=== PATIENT | male | born 1940 | race Caucasian/White ===

== ENCOUNTER 2024-07-01 09:30 | Outpatient (RCR) | payer MEDICARE, BC, SELFPAY ==
[2024-05-17] VITALS (8 sets, daily range): BP systolic 110–131; BP diastolic 60–73; PULSE 58–68; RESP 16; TEMP 36.4–37.1; O2SAT 97–99
[2024-05-31] VITALS (14 sets, daily range): BP systolic 95–123; BP diastolic 45–75; PULSE 61–78; RESP 16; TEMP 36.7–36.9; O2SAT 95–99
--- OUTSIDE RECORDS SUMMARY | 2024-05-31 07:12 | XMS_ITS | Encounter Summary ---
Author Name [facility] [place] Organization [facility] [place] Address [address] [place] [address] Care Team Providers Care Blood Bank Specialist Name Role Phone DELMY LING Primary Care Provider Unava ilable Insurance Providers: All historical and current Section Date Range: From patient's date of to the date document was created. This section includes the names of all active insurance providers for the patient. Insurance Provider Type of Coverage Plan Name Start of Policy Coverage End of Policy Coverage Group Number Member ID Insurance Provider's Telephone Number Policy Vazquez's Name Patient's Relationship to Policy Vazquez [place] MED[place] SUPPLEMEN MELYSSA BASIC MEDIC ARE BLUE Jun 15, 2018 [id number] TUNG MONTENEGRO HN PATIENT [place] MED[place] SUPPLE[place] MELYSSA MEDIC ARE SUPPL EMENT Jun 15, 2018 [id number] TUNG MONTENEGRO HN [place]IENT [place] [facility] (WNR) MEDICARE ADVANTAGE [facility] (WNR) Jun 15, 2016 [id number] [phone] TUNG MONTENEGRO HN PATIENT [place] MED[place] SUPPLEMEN MELYSSA MEDIC ARE SUPPL EMENT Jun 15, 2018 [id number] TUNG MONTENEGRO HN PATIENT MEDICARE (WNR) MEDICARE (M) PART A Dec 13, 2004 PART A [id number] [phone] TUNG MONTENEGRO HN PATIENT MEDICARE (WNR) MEDICARE (M) PART B Dec 13, 2004 PART B [id number] [phone] TUNG MONTENEGRO PATIENT Selected Encounter This section includes the information on record at [place] for the Encounter. Date/Time Encounter Type Encounter Description Reason Pro vider Source Jun 25, 2023 12:00 AM Outpatient Encounter EVENT (HISTORICAL) IHE Encounter Template Text not used by [place] Plan of Treatment: Future Appointments (+ 6 months) and Future Tests (+/- 45 days) The Plan of Treatment section includes future care activities for the patient from all [place] treatmentfacilities. This section includes future appointments and future orders which are active, pending or scheduled. Future Appointments This section includes appointments that were scheduled to occur 6 months from the date of the Encounter, up to a maximum of 20 appointments. The data comes from all [place] treatment facilities. Appointment Date/Time Appointment Type Appointme nt Facility Name Oct 06, 2023 08:00 AM AMBULATORY - MEDICINE [facility] Immunizations: All administered on the encounter date This section contains immunizations associated to the Encounter. Immunization Series Date Issued Reaction Comments INFLUENZA VACCINE, QUADRIVALENT, ADJUVANTED Jun 25, 2023 Social History: Smoking Status (Most current) and Tobacco Use (All prior to encounter date) This section includes the most current, and the historical, smoking and tobacco- related health factors from the [place] facility where the Encounter took place. Current Smoking Status This section includes the most current smoking, or tobacco-related health factor, from the [place] facility where the Encounter took place. Date/Time Current Smoking Status Comment Shamar ity October 20, 2022 08:30 AM VA-TOBACCO FORMER USER [facility] Tobacco Use History This section includes a history of the smoking, or tobacco-related health factors, that were collected on or before the date of the Encounter. The data comes from the [place] facility where the Encounter took place. Date/Time Smoking Status/Tobacco Use Comment F acility October 20, 2022 08:30 AM VA-TOBACCO QUIT 15 YRS OR MORE [facility] October 14, 2021 08:30 AM VA-TOBACCO FORMER USER [facility] October 14, 2021 08:30 AM VA-TOBACCO QUIT 15 YRS OR MORE [facility] Aug 27, 2018 01:37 PM VA-TOBACCO FORMER USER [facility] Aug 27, 2018 01:37 PM VA-TOBACCO QUIT 15 YRS OR MORE [facility] Sep 24, 2017 11:21 AM FORMER TOBACCO USER 7Y OR [facility] October 27, 2016 08:24 AM FORMER TOBACCO USER 7Y OR [facility] October 29, 2015 08:10 AM FORMER TOBACCO USER 7Y OR [facility] October 13, 2014 08:05 AM FORMER TOBACCO USER 7Y OR [facility] November 02, 2013 08:12 AM FORMER TOBACCO USER 7Y OR [facility] Oct 01, 2006 08:54 AM FORMER TOBACCO USER 7Y OR [facility]
--- OUTSIDE RECORDS SUMMARY | 2024-05-31 07:12 | XMS_ITS | Encounter Summary ---
Author Name [facility] [place] [facility] [place] [facility] Address [address] [place] [id number] Care Team Providers Care Bar Steward Name Role Phone DELMY LING Primary Care [...] Name Patient's Relationship to Policy Vazquez [place] SU[place] BASIC MEDIC ARE BLUE Jun 15, 2018 [id number] TUNG MONTENEGRO HN PATIENT [place] SU[place] MEDIC ARE SUPPL EMENT Jun 15, 2018 [id number] [phone] TUNG MONTENEGRO HN [place] [facility] (WNR) MEDICARE ADVANTAGE [facility] (WNR) Jun 15, 2016 [id number] [phone] TUNG MONTENEGRO HN PATIENT BCBS [place] MEDICARE SUPPLEMEN MELYSSA MEDIC ARE SUPPL EMENT Jun 15, 2018 [id number] TUNG MONTENEGRO HN PATIENT MEDICARE (WNR) MEDICARE (M) PART A Dec 13, 2004 PART A [id number] [phone] TUNG MONTENEGRO HN PATIENT MEDICARE (WNR) MEDICARE (M) PART B Dec 13, 2004 PART B [id number] [phone] TUNG MONTENEGRO PATIENT Selected Encounter This section includes the information on record at [place] for the Encounter. Date/Time Encounter Type Encounter Description Reason Provider Source Oct 06, 2023 08:00 AM Outpatient Encounter PRIMARY CARE/MEDICINE ICD-10-CM Z00.00 Encntr for general adult medical exam w/o abnormal findings KORINA DELUNA [facility] Encounter Template Text not used by [place] Assessments - Encounter Diagnoses This section includes the primary and secondary diagnoses documented for the Encounter. Date/Time Primary/Secondary Diagnosis Diagnosis Name Provider Source October 19, 2023 10:09 AM PRIMARY Encntr for general adult medical exam w/o abnormal findings KORINA DELUNA [facility] Vital Signs: All taken on the encounter date This section contains inpatient and outpatient Vital Signs collected on the date of the Encounter. Date/Time Temperature Pulse Blood Pressure Respiratory Rate SP02 Pain Height Weight Body Mass Index Source Oct 06, 2023 08:01 AM 73 123/76 [facility] Oct 06, 2023 07:53 AM 97.9 75 154/82 17 95 4 70 204.5 29 [facility] Social History: Smoking Status (Most current) and Tobacco Use (All prior to encounter date) This section includes the most current, and the historical, smoking and tobacco- related health factors from the [place] facility where the Encounter took place. Current Smoking Status This section includes the most current smoking, or tobacco-related health factor, from the [place] facility where the Encounter took place. Date/Time Current Smoking Status Comment Shamar scruggs Oct 06, 2023 08:00 AM VA-TOBACCO FORMER USER [facility] Tobacco Use History This section includes a history of the smoking, or tobacco-related health factors, that were collected on or before the date of the Encounter. The data comes from the [place] facility where the Encounter took place. Date/Time Smoking Status/Tobacco Use Comment F acelsi Oct 06, 2023 08:00 AM VA-TOBACCO QUIT 15 YRS OR MORE [facility] October 20, 2022 08:30 AM VA-TOBACCO FORMER USER [facility] October 20, 2022 08:30 AM VA-TOBACCO QUIT 15 YRS OR MORE [facility] October 14, 2021 08:30 AM VA-TOBACCO FORMER USER [facility] October 14, 2021 08:30 AM VA-TOBACCO QUIT 15 YRS OR MORE [facility] Aug 27, 2018 01:37 PM VA-TOBACCO FORMER USER [facility] Aug 27, 2018 01:37 PM VA-TOBACCO QUIT 15 YRS OR MORE [facility] Sep 24, 2017 11:21 AM FORMER TOBACCO USER 7Y OR GREATE R [facility] October 27, 2016 08:24 AM FORMER TOBACCO USER 7Y OR [facility] October 29, 2015 08:10 AM FORMER TOBACCO USER 7Y OR [facility] October 13, 2014 08:05 AM FORMER TOBACCO USER 7Y OR [facility] November 02, 2013 08:12 AM FORMER TOBACCO USER 7Y OR [facility] Oct 01, 2006 08:54 AM FORMER TOBACCO USER 7Y OR [facility] Encounter Notes: All associated encounter notes This section contains the clinical notes associated to the Encounter. Date/Time Encounter Note(s) Provider Source Oct 06, 2023 08:25 AM INTERNAL MEDICINE NOTE: LOCAL TITLE: MEDICINE CLINIC NOTE STANDARD TITLE: INTERNAL MEDICINE NOTE DATE OF NOTE: OCT 06, 2023@08:25 ENTRY DATE: OCT 06, 2023@08:25:06 AUTHOR: EMILIA DELUNA COSIGNER: URGENCY: STATUS: COMPLETED Nurse's notes reviewed from today. STACI MONTENEGRO is a 82 year old MALE with a past medical history significant for GERD, HLD, HTN, prostate CA, CKD3, melanoma and BCC, Irwin's, and chronic rhinitis who presents to the [facility] (primary DMIM-[id number] available) for his annual. He is comanaged, getting all of his care through [facility]. Comes here yearly to maintain benefits. No concerns today. Active problems - Computerized Problem List is the source for the followin. Gastroesophageal reflux disease (SNOMED CT 389079303) 2. Esophageal stricture 3. ELEV B/P W/OUT HTN 4. Cholecystectomy - 01/01/07 dr. Frye - ERCP 01/02/07 5. History of hematuria - s/p cytoscopy 02/03/06 nl exam 6. Impaired fasting glucose (SNOMED CT 857563128) 7. Other specified forms of hearing loss - buzzing and clicking noise 8. 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 Mixed hyperlipidemia * 10. SURGERY Hx - cholecystectomy - esophageal dilation - L cataract sx 10/2012 outside - R cataract sx 11. FAMILY Hx - m melanoma 12. Basal cell carcinoma of forehead - Dr. Wright 13. CO-MANAGE - ACUTE care Dr. [place] - PCP Dr. Parks [phone] - Derm Dr. Wright - Uro Dr. Rodriguez [phone] f 14. SCREEN - 2011 per pt done outside polyps x2 rec repeat 3-5yr per pt - AAA discuss 11/06/11 pt declined understanding risk - DEXA n/a 15. 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 Elevated Prostate Specific Antigen (PSA) 17. Renal Cyst - right hemorrhagic followed [place] Dr. Foster 02/22 18. Impotence of organic origin 19. Allergy to bee venom (SNOMED CT 478374704) 20. Cataract - s/p L eye cataract sx 10/2012 [facility] 21. 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 Wright 22. Allergic rhinitis 23. Prostate cancer - outside dx Joseph grade 3+4 tx with hormone & radiation 24. Chronic kidney disease stage 3 25. Hypertension 26. Exposure to potentially hazardous substance (SCT [id number]) - Entered through [facility]/VISN23 [facility] Document[employer] Allergies: PENICILLIN (Feb 07, 2005) PROCAINE (Feb 10, 2005) BEE STINGS (October 31, 2010) Active and Recently Outpatient Medications (including Supplies): Active Outpatient Medications Status 1) AZELASTINE 137MCG/SPRAY 200D NASAL INHL SPRAY 1 PUFF ACTIVE IN EACH NOSTRIL EVERY DAY FOR NASAL SYMPTOMS 2) EPINEPHRINE (EQV-EPI-PEN) 0.3MG/0.3ML INJECT 1 PEN ACTIVE DIRECTED NEEDED FOR TROUBLE BREATHING AFTER BEE STINGS. 3) FAMOTIDINE 20MG TAB TAKE ONE TABLET BY MOUTH TWICE A ACTIVE DAY FOR HEARTBURN 4) FINASTERIDE 5MG TAB TAKE ONE TABLET BY MOUTH EVERY ACTIVE DAY FOR PROSTATE 5) FLUTICASONE PROP 50MCG 120D NASAL INHL SPRAY 2 SPRAYS ACTIVE IN EACH NOSTRIL EVERY DAY FOR NASAL SYMPTOMS 6) IPRATROPIUM BR 0.06% NASAL SPRAY SPRAY 2 SPRAYS IN ACTIVE EACH NOSTRIL FOUR TIMES A DAY FOR SNEEZING, POSTNASAL DRIP, OR RHINORRHEA. 7) LORATADINE 10MG TAB TAKE ONE TABLET BY MOUTH EVERY ACTIVE DAY FOR ALLERGIES 8) LOSARTAN 25MG TAB TAKE ONE TABLET BY MOUTH EVERY DAY ACTIVE FOR BLOOD PRESSURE Active Non-VA Medications Status 1) Non-VA ASCORBIC ACID 500MG TAB 500 MG MOUTH EVERY DAY ACTIVE 2) Non-VA AZELASTINE 137MCG/SPRAY 200D NASAL INHL 1 PUFF ACTIVE EACH NOSTRIL EVERY DAY 3) Non-VA CHOLECALCIF 25MCG (D3-1,000UNIT) TAB 2000UNIT ACTIVE MOUTH EVERY DAY 4) Non-VA FAMOTIDINE 20MG TAB 20MG MOUTH TWICE A DAY ACTIVE 5) Non-VA FINASTERIDE 5MG TAB 5MG MOUTH EVERY DAY ACTIVE 6) Non-VA FISH OIL 1000MG (500MG DHA/EPA) CAP 1GM MOUTH ACTIVE EVERY DAY 7) Non-VA FLUTICASONE PROP 50MCG 120D NASAL INHL 1 SPRAY ACTIVE EACH NOSTRIL EVERY DAY 8) Non-VA FLUTICASONE SOLN,NASAL EACH NOSTRIL ACTIVE 9) Non-VA IPRATROPIUM BR 0.06% NASAL SPRAY 1 SPRAY ACTIVE INHALATION EVERY DAY 10) Non-VA LORATADINE 10MG TAB 10MG MOUTH EVERY MORNING ACTIVE 11) Non-VA LOSARTAN 50MG TAB 25MG MOUTH EVERY DAY ACTIVE 19 Total Medications MEDICATION RECONCILIATION Outpatient At this visit I have reviewed the medication list, and discussed relevant medications with the patient/surrogate. An updated patient medication list was given to the participant(s). (x) No Change ( ) Change/New: I have noted this on the patient's copy of the medication list. Education on NEW Medication: I have reviewed the medication list for possible drug:drug interactions or contraindications prior to ordering NEW medications during this visit. ( )Patient instructed. I noted new medication on patient's copy of the medication list. Patient sent to Pharmacist for education on new medication. ( )Patient ( )Family Member ( )Caregiver indicated readiness to learn and has been instructed on action, dose, frequency and side effects of the new medication and I noted new medication on participant's copy of the medication list. ( ) Verbalizes understanding of instructions. ( ) Needs additional reinforcement of instructions(sent to Pharmacist). ( )Patient unable to participate in learning/instruction. Social History: quit smoking in 1970, smoked 1/2ppd for 14 years EXAM: VS: Temp: 97.9 F [36.6 C] (10/06/2023 07:53) BP: 123/76 (10/06/2023 08:01) Pulse:73 (10/06/2023 08:01) Resp: 17 (10/06/2023 07:53) Pain: 4 (10/06/2023 07:53) Weight: WEIGHTS IN LAST 6 MONTHS: 204.5 (OCT 06, 2023@07:53:58) General Appearance: Head: normocephalic, atraumatic Eyes: Sclera without icterus, PERRLA Cardiac: RRR, No murmurs, gallops, rubs Chest/Lungs: Bilaterally clear with no respiratory distress Abdominal: Normal - Normal bowel sounds, Non-tender, No hepatosplenomegaly, No masses Extremities: No edema Neurological: Alert and oriented x3 Data/Labs: LAB RESULTS LAST 48 HRS - NONE FOUND ( )Patient was informed of available lab, imaging, and other study results associated with today's visit. Assessment and Plan: #. HM: -Screen: -colon cancer: last cscope was in 2015, stopped screening due to age -AAA: negative US 2012 -ldCT chest: n/a -PSA: <0.01 (08/2023 at ) -Immunizations: -Shingles: x2 -Tdap: 2017 -Pna: -COVID-19: x5 #. Comanaged care patient with history of HTN, HLD, gerd, irwin's, CKD3, skin cancer and rhinitis. All managed by [facility] providers. Currently decided to get all his meds through [facility] because it is cheaper. Overall stable. Planning on BRI on the right some time this year. RTC in 1 year (x) Patient/Caregiver indicates readiness to learn, verbalizes understanding, agreement and satisfaction with the treatment plan. Patient/Caregiver doesn't have any further questions today. /benigno/ Emilia Deluna PA-C Physician Lathe Scalper Operator Signed: 10/06/2023 08:30 EMILIA DELUNA [facility] Oct 06, 2023 07:55 AM INTERNAL MEDICINE OUTPATIENT NOTE: LOCAL TITLE: MEDICINE CLINIC NURSING NOTE STANDARD TITLE: INTERNAL MEDICINE OUTPATIENT NOTE DATE OF NOTE: OCT 06, 2023@07:55 ENTRY DATE: OCT 06, 2023@07:56:02 AUTHOR: MELA PORRAS COSIGNER: URGENCY: STATUS: COMPLETED TYPE OF VISIT: Appointment Check In Type of appointment: In-person appointment REASON FOR VISIT: ANNUAL ALLERGIES: PENICILLIN (Feb 07, 2005) PROCAINE (Feb 10, 2005) BEE STINGS (October 31, 2010) VITAL SIGNS: Blood Pressure: 154/82 (10/06/2023 07:53) Pulse: 75 (10/06/2023 07:53) Respiration: 17 (10/06/2023 07:53) Temperature: 97.9 F [36.6 C] (10/06/2023 07:53) Weight: 204.5 lb [92.76 kg] (10/06/2023 07:53) Height: 70 in [177.8 cm] (10/06/2023 07:53) BMI: 29.4 O2 Sat: 95% (10/06/2023 07:53) Pain: 4 (10/06/2023 07:53) PAIN SCREEN: Patient is not having significant pain that they wish to discuss with their provider today. MEDICATION Active Outpatient Medications (including Supplies): AZELASTINE 137MCG/SPRAY 200D NASAL INHL SPRAY 1 PUFF IN ACTIVE EACH NOSTRIL EVERY DAY FOR NASAL SYMPTOMS EPINEPHRINE (EQV-EPI-PEN) 0.3MG/0.3ML INJECT 1 PEN ACTIVE DIRECTED NEEDED FOR TROUBLE BREATHING AFTER BEE STINGS. FAMOTIDINE 20MG TAB TAKE ONE TABLET BY MOUTH TWICE A DAY ACTIVE FOR HEARTBURN FINASTERIDE 5MG TAB TAKE ONE TABLET BY MOUTH EVERY DAY FOR ACTIVE PROSTATE FLUTICASONE PROP 50MCG 120D NASAL INHL SPRAY 2 SPRAYS IN ACTIVE EACH NOSTRIL EVERY DAY FOR NASAL SYMPTOMS IPRATROPIUM BR 0.06% NASAL SPRAY SPRAY 2 SPRAYS IN EACH ACTIVE NOSTRIL FOUR TIMES A DAY FOR SNEEZING, POSTNASAL DRIP, OR RHINORRHEA. LORATADINE 10MG TAB TAKE ONE TABLET BY MOUTH EVERY DAY FOR ACTIVE ALLERGIES LOSARTAN 25MG TAB TAKE ONE TABLET BY MOUTH EVERY DAY FOR ACTIVE BLOOD PRESSURE Non-VA ASCORBIC ACID 500MG TAB 500 MG MOUTH EVERY DAY ACTIVE Non-VA AZELASTINE 137MCG/SPRAY 200D NASAL INHL 1 PUFF EACH ACTIVE NOSTRIL EVERY DAY Non-VA CHOLECALCIF 25MCG (D3-1,000UNIT) TAB 2000UNIT MOUTH ACTIVE EVERY DAY Non-VA FAMOTIDINE 20MG TAB 20MG MOUTH TWICE A DAY ACTIVE Non-VA FINASTERIDE 5MG TAB 5MG MOUTH EVERY DAY ACTIVE Non-VA FISH OIL 1000MG (500MG DHA/EPA) CAP 1GM MOUTH EVERY ACTIVE DAY Non-VA FLUTICASONE PROP 50MCG 120D NASAL INHL 1 SPRAY EACH ACTIVE NOSTRIL EVERY DAY Non-VA FLUTICASONE SOLN,NASAL EACH NOSTRIL ACTIVE Non-VA IPRATROPIUM BR 0.06% NASAL SPRAY 1 SPRAY INHALATION ACTIVE EVERY DAY Non-VA LORATADINE 10MG TAB 10MG MOUTH EVERY MORNING ACTIVE Non-VA LOSARTAN 50MG TAB 25MG MOUTH EVERY DAY ACTIVE Over the Counter/Herbal Medications: The patient denies taking any outside medications or herbals. COVID-19 Immunization: Refused Pfizer Monovalent COVID-19 vaccine Immunization: COVID-19 (PFIZER), MRNA, LNP-S, PF, MAYA-SUCROSE, 30 MCG/0.3 ML (AGES 12+ YEARS) Refusal Reason: PATIENT DECISION Patient refuses all immunization(s) in the COVID-19 group Date Documented: 10/06/23 07:57 Suicide Screen: C-SSRS Screening [place] Suicide Severity Rating Scale (C-SSRS) screener 1. Over the past month, have you wished you were or wished you could go to sleep and not wake up? No 2. Over the past month, have you had any actual thoughts of killing yourself? No 3. Over the past month, have you been thinking about how you might do this? Response not required due to responses to other questions. 4. Over the past month, have you had these thoughts and had some intention of acting on them? Response not required due to responses to other questions. 5. Over the past month, have you started to work out or worked out the details of how to kill yourself? Response not required due to responses to other questions. 6. If yes, at any time in the past month did you intend to carry out this plan? Response not required due to responses to other questions. 7. In your lifetime, have you ever done anything, started to do anything, or prepared to do anything to end your life (for example, collected pills, obtained a gun, gave away valuables, went to the roof but didn't jump)? No 8. If YES, was this within the past 3 months? Response not required due to responses to other questions. Depression Screening: Perform PHQ-2 A PHQ-2 screen was performed. The score was 0 which is a negative screen for depression. Over the past two weeks, how often have you been bothered by the following problems? 1. Little interest or pleasure in doing things Not at all 2. Feeling down, depressed, or hopeless Not at all Alcohol Use Screen (AUDIT-C): Alcohol Screen: SCREEN FOR ALCOHOL (AUDIT-C) An alcohol screening test (AUDIT-C) was negative (score=0). 1. How often did you have a drink containing alcohol in the past year? Consider a drink to be a 12 ounce can or bottle of regular beer, 8 ounces of malt liquor, a 5 ounce glass of table wine, or a 1.5 ounce shot of liquor (like scotch, gin, or vodka). Never 2. How many drinks containing alcohol did you have on a typical day when you were drinking in the past year? Response not required due to responses to other questions. 3. How often did you have six or more drinks on one occasion in the past year? Response not required due to responses to other questions. Nursing Annual Screening: Fall History Screen During the past 12 months, have you had any falls? Patient does not report any falls in the past 12 months. MEDICATIONS: Patient is on one of the following medication classes: Antihypertensives, Antidepressants, Antipsychotics, Diuretics, or Controlled substance medication used for pain. Script Talk Screen Are you able to read your prescription bottles with your glasses, magnifiers or other aids? Yes or patient not taking any prescriptions. Skin Screen Patient reports any current pressure ulcers, a history of pressure ulcers, or a wound from a medical records administrator or Patient is bed-confined or a wheelchair-user or Patient requires assistance to transfer/change position No, Skin Screen is Negative Home Abuse/Violence Screen Is your home free of abuse and violence? Yes MOVE! Program Screen Body Mass Index (BMI)= 29.4 [place]: No data available [place] Hgb A1C: No data available [place] Hgb A1C: No data available Point of Care Hgb A1C: POC HGB A1C____ Outpatient Nutrition Screen Body Mass Index (BMI)= 29.4 [place]: No data available [place] Hgb A1C: No data available [place] Hgb A1C: No data available Point of Care Hgb A1C: POC HGB A1C____ Is patient's BMI less than 18.5? No Does patient have swallowing, coughing, or chewing problems affecting oral intake? Yes Has patient experienced unplanned weight loss or gain greater than 10 pounds over the last 2 months? No Is patient's Hgb A1C (Glycosylated Hemoglobin) greater than 9.5? Information not available Is patient receiving Total Parenteral Nutrition (TPN) or Tube Feedings? No Patient Health Education Screen BARRIERS/SPECIAL NEEDS: Physical limitations Hearing limitations Visual limitations PREFERRED STYLE OF LEARNING: Reading Client Assistive Service (KEVIN) Screen Does the patient require assistance with outpatient visit? No Tobacco Use Screening: The patient is a former tobacco user. The patient quit fifteen or more years ago. Homelessness/Food Insecurity Screen: In the past 2 months, have you been living in stable housing that you own, rent, or stay in as part of a household? Yes - Living in stable housing. Are you worried or concerned that in the next 2 months you may NOT have stable housing that you own, rent, or stay in as part of a household? No - Not worried about housing near future [facility] reports the following: Within the past 12 months, you worried whether your food would run out before you got money to buy more. Never true Within the past 12 months, the food you bought just didn't last and you didn't have money to get more. Never true Food Assistance Programs [facility] Food Assistance Programs [facility] /benigno/ MELA PORRAS LPN LPN Signed: 10/06/2023 08:00 MELA PORRAS [facility]
--- OUTSIDE RECORDS SUMMARY | 2024-05-31 07:12 | XMS_ITS | Continuity of Care Document ---
Author Name [facility] Organization [facility] Care Team Providers Care Fleet Service Manager Name Role Phone [facility] Unavailable Unavailable Problems Combined list of problems from Department of Defense and Veterans Affairs facilities. It does not include entries that were removed or entered in error. Problem Status Onset Date Problem Type Date of Resolution Comments Source Exposure to potentially hazardous substance ([facility] [id number]) Active 024 Condition Aug 19, 2023 Entered By: SABAS HUIZAR [facility]: [facility] Documentation Initiative [facility] Allergic rhinitis Active Condition [facility] Allergy to bee venom (SNOMED CT 886918668) Active Condition [facility] Basal cell carcinoma of forehead Active Condition October 31, 2009 Entered By: CARYN AUGUSTINE Comment: Dr. Wright [facility] Cataract Active Condition November 02 14 Entered By: CARYN AUGUSTINE Comment: s/p L eye cataract sx 10/2012 [place] [facility] Cholecystectomy Active Condition Oct 01, 2006 Entered By: CARYN AUGUSTINE Comment: 01/01/07 dr. Rankin 2006 Entered By: CARYN AUGUSTINE Comment: ERCP 01/02/07 [facility] Chronic kidney disease stage 3 Active Condition [facility] Active Condition October 31 10 Entered By: CARYN AUGUSTINE Comment: ACUTE care Dr. Sneed 2014 Entered By: CARYN AUGUSTINE Comment: PCP Dr. Parks [phone] [id number] 2014 Entered By: CARYN AUGUSTINE Comment: Derm Dr. Franco 2015 Entered By: CARYN AUGUSTINE Comment: Uro Dr. Rodriguez [phone] f [facility] ELEV B/P W/OUT HTN Active Condition [facility] Elevated Prostate Specific Antigen (PSA) (ICD-9-CM 790.93) Active Condition [facility] Esophageal stricture (ICD-9-CM 530.3) Active Condition [facility] Hx Active Condition October 31 10 Entered By: CARYN AUGUSTINE Comment: m melanoma [facility] Gastroesophageal reflux disease (SNOMED CT 377645400) Active Condition [facility] History of hematuria Active Condition Oct 01, 2006 Entered By: CARYN AUGUSTINE Comment: s/p cytoscopy 02/03/06 nl exam [facility] Hypertension Active Condition 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 Wright [facility] Prostate cancer Active Condition Jan 14, 2016 Entered By: CARYN AUGUSTINE Comment: outside dx Joseph grade 3+4 tx with hormone & radiation [facility] Renal Cyst Active Condition May 15 010 Entered By: CARYN AUGUSTINE Comment: right hemorrhagic followed non [place] urology Dr. Foster 02/22 [facility] SCREEN Active Condition October 31 10 Entered By: CARYN AUGUSTINE Comment: 2012 per pt done outside polyps x2 rec repeat 3-5yr per ptMay 2011 Entered By: CARYN AUGUSTINE Comment: AAA discuss 11/06/11 pt declined understanding riskMay 2011 Entered By: CARYN AUGUSTINE Comment: DEXA n/a [facility] SOCIAL Hx Active Condition October 31 10 Entered By: CARYN AUGUSTINE Comment: smoke deniesMay 2009 Entered By: CARYN AUGUSTINE Comment: etoh rare socialMay 2009 Entered By: CARYN AUGUSTINE Comment: drug deniesMay 2009 Entered By: CARYN AUGUSTINE Comment: marine, [age], 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 AUGUSTINE Comment: retired, 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 [facility] SURGERY Hx Active Condition October 31 010 Entered By: CARYN AUGUSTINE Comment: cholecystectomyMay 2009 Entered By: CARYN AUGUSTINE Comment: esophageal dilationMay 2013 Entered By: CARYN AUGUSTINE Comment: L cataract sx 10/2012 outsideMay 2015 Entered By: CARYN AUGUSTINE Comment: R cataract sx [facility] Diagnosis: ICD-10-CM Z00.00 Encntr for general adult medical exam w/o abnormal findings Active Diagnosis [facility] Medications Combined list of outpatient medications from Department of Defense and Veterans Affairs facilities.Medications provided include 1) outpatient medications from the last 15 months, and 2) patient-reported medications. Medication Details Route Status Patient Instructions Prescription Expires Prescription Number Last Dispense Date Ordering Provider Order Date Order Qty Source ASCORBIC ACID 500MG TAB TAKE ONE TABLET BY MOUTH EVERY DAY [facility]AL [facility]IVE [facility] 2007 [facility] AZELASTINE HCL 137MCG/SPRA Y INHL,NASAL, 30ML SPRAY 1 PUFF IN EACH NOSTRIL EVERY DAY NASAL ACTIVE TRAUT,SANDRITA HARD L 2018 [facility] CHOLECALCIF ANDREI 25MCG (1,000UNIT) TAB TAKE TWO TABLETS BY MOUTH EVERY DAY ORAL ACTIVE [facility] 2015 [facility] FAMOTIDINE 20MG TAB TAKE ONE TABLET BY MOUTH TWICE A DAY ORAL ACTIVE TRAUT,SANDRITA HARD L 2021 [facility] FINASTERIDE 5MG TAB TAKE ONE TABLET BY MOUTH EVERY DAY ORAL ACTIVE TRAUT,SANDRITA HARD L 2019 [facility] FISH OIL 1000MG (500MG DHA/EPA) CAP,ORAL TAKE 1 CAPSULE BY MOUTH EVERY DAY ORAL ACTIVE [facility] 2009 [facility] FLUTICASONE PROPIONATE 50MCG/SPRAY SOLN,NASAL, 16GM SPRAY 1 SPRAY IN EACH NOSTRIL EVERY DAY NASAL ACTIVE TRAUT,SANDRITA HARD L 2018 [facility] FLUTICASONE SOLN,NASAL SPRAY IN EACH NOSTRIL NASAL ACTIVE TRAUT,SANDRITA HARD L 2018 [facility] IPRATROPIUM BR 0.06% SOLN,SPRAY, NASAL SPRAY 1 SPRAY IN INHALATI ON EVERY DAY RESPIR ATORY (INHAL ATION) ACTIVE SANDRITA MCGUIRE 2018 [facility] LORATADINE 10MG TAB TAKE ONE TABLET BY MOUTH EVERY MORNING ORAL ACTIVE [facility] C 2017 [facility] LOSARTAN 50MG TAB TAKE ONE-HALF TABLET BY MOUTH EVERY DAY [facility]AL ACTIVE [facility] 2017 [facility] Allergies, Adverse Reactions, Alerts Combined list of allergies from [facility] and [facility] facilities. It does not include entries that were removed or entered in error. Substance Category Reaction Severity Reaction type Status Date Reported Comments Source BEE STINGS Propensity to adverse reaction (finding) Urticaria active 1 [facility] PENICILLIN Propensity to adverse reactions to drug (finding) Eruption active 5 [facility] PROCAINE Propensity to adverse reactions to drug (finding) SWELLING (NON-SPECI FIC) active 5 [facility] Immunizations Combined list of available immunizations from the Department of [facility] and [facility] facilities. Immunization Series Date Given Administered By Site Reaction Lot Number CVX Code Drug Manufacturing Engineering Manager Status Comments Source INFLUENZA VACCINE, QUADRIVALENT, ADJUVANTED 2023 205 complet ed [facility] COVID-19 (PFIZER), MRNA, LNP-S, BIVALENT, PF, 30 MCG/0.3 ML DOSE 2022 300 complet ed [facility] INFLUENZA, HIGH-DOSE, QUADRIVALENT 2021 197 complet ed [facility] INFLUENZA, UNSPECIFIED FORMULATION 2021 88 complet ed [facility] COVID-19 (PFIZER), MRNA, LNP-S, PF, 30 MCG/0.3 ML DOSE, MAYA-SUCROSE (AGES 12+ YEARS) 2021 217 complet ed [facility] INFLUENZA, HIGH-DOSE, QUADRIVALENT 2020 197 complet ed [facility] COVID-19 (PFIZER), MRNA, LNP-S, PF, 30 MCG/0.3 ML DOSE 2020 208 complet ed [facility] INFLUENZA, UNSPECIFIED FORMULATION 2020 88 complet ed [facility] COVID-19 (PFIZER), MRNA, LNP-S, PF, 30 MCG/0.3 ML DOSE 2 2020 208 complet ed [facility] COVID-19 (PFIZER), MRNA, LNP-S, PF, 30 MCG/0.3 ML DOSE 1 2020 208 complet ed [facility] INFLUENZA, HIGH-DOSE, QUADRIVALENT 2019 197 complet ed [facility] INFLUENZA, HIGH DOSE SEASONAL 2018 135 complet ed [facility] ZOSTER RECOMBINANT 2 2018 187 complet ed [facility] ZOSTER RECOMBINANT 1 2018 187 complet ed [facility] INFLUENZA, HIGH DOSE SEASONAL 2017 135 complet ed [facility] INFLUENZA, HIGH DOSE SEASONAL 2017 135 complet ed [facility] INFLUENZA, HIGH DOSE SEASONAL 2016 135 complet ed [facility] INFLUENZA, HIGH DOSE SEASONAL 2016 135 complet ed [facility] TDAP 2016 115 complet ed glaxosmit hkline; [id number]; 9 [facility] INFLUENZA, HIGH DOSE SEASONAL 2015 135 complet ed [facility] INFLUENZA, SEASONAL, INJECTABLE [address] [facility] PNEUMOCOCCAL CONJUGATE PCV 13 2015 133 complet ed [facility] TDAP 2015 115 complet ed [facility] PNEUMOCOCCAL CONJUGATE PCV 13 2015 133 complet ed [facility] INFLUENZA, SEASONAL, INJECTABLE 2014 141 complet ed [facility] INFLUENZA, INJECTABLE, QUADRIVALENT, PRESERVATIVE FREE 2014 150 complet ed [facility] INFLUENZA, HIGH DOSE SEASONAL 2013 135 complet ed [facility] INFLUENZA, INJECTABLE, QUADRIVALENT, PRESERVATIVE FREE 2012 150 complet ed [facility] INFLUENZA, UNSPECIFIED FORMULATION 2012 88 complet ed [facility] ZOSTER LIVE 2011 121 complet ed [employer] and [employer]. Lot# [id number] Exp.Date- - 3 [facility] PNEUMOCOCCAL POLYSACCHARID E PPV23 2005 33 complet ed [facility] TD (ADULT), 5 LF TETANUS TOXOID, PRESERVATIVE FREE, ADSORBED 2005 113 complet ed [facility] PNEUMOCOCCAL, UNSPECIFIED FORMULATION 2005 109 complet ed [facility] TD(ADULT) UNSPECIFIED FORMULATION 2004 139 complet ed within the last 10 years [facility] Vital Signs Combined list of inpatient and outpatient Vital Signs from Department of [facility] and [facility], ranging from 12 months to all on record, depending upon the facility. Vital Sign Value Date Comments Source SYSTOLIC BLOOD PRESSURE 154 10/06/2023 07:53:58 [facility] DIASTOLIC BLOOD PRESSURE 82 10/06/2023 07:53:58 [facility] PULSE OXIMETRY 95 10/06/2023 07:53:58 [facility] WEIGHT 204.5 10/06/2023 07:53:58 [facility] BMI 29kg/m2 10/06/2023 07:53:58 [facility] PAIN 4 10/06/2023 07:53:58 [facility] HEIGHT 70 10/06/2023 07:53:58 [facility] TEMPERATURE 97.9 10/06/2023 07:53:58 [facility] PULSE 75 10/06/2023 07:53:58 [facility] RESPIRATION 17 10/06/2023 07:53:58 [facility] Encounters Combined list of: 1) Encounters from Department of [facility] facilities going back up to thelast 18 months. 2) Encounters from the Department of [facility] facilities going back up to 280 months. Location Location Details Encounter Type Encounter Number Reason For Visit Attending Provider ADM Date DC Date Status Disposition Source [facility] Outpatient Encounter [id number] 06/25 [facility] Outpatient Encounter [id number] Diagnos is: ICD-10- CM Z00.00 Encntr for general adult medical exam w/o abnorma l finding s
José Miguel DILL 10/05 [facility] Social History Combined list of available smoking, tobacco, and other social history from Department of Defense and Veterans Affairs facilities. Social History Type Response Date Comment Sour e Tobacco smoking status NHIS VA-TOBACCO QUIT 15 YRS OR MORE 10/06/2023 [facility] History of tobacco use VA-TOBACCO FORMER USER 10/06/2023 [facility] History of tobacco use VA-TOBACCO QUIT 1 5 YRS OR MORE 10/20/2022 [facility] History of tobacco use VA-TOBACCO FORMER USER 10/14/2021 [facility] History of tobacco use VA-TOBACCO QUIT 1 5 YRS OR MORE 08/27/2018 [facility] History of tobacco use FORMER TOBACCO US ER 7Y OR GREATER 09/24/2017 [facility] History of tobacco use FORMER TOBACCO US ER 7Y OR GREATER 10/27/2016 [facility] History of tobacco use FORMER TOBACCO US ER 7Y OR GREATER 10/29/2015 [facility] History of tobacco use FORMER TOBACCO US ER 7Y OR GREATER 10/13/2014 [facility] History of tobacco use FORMER TOBACCO US ER 7Y OR GREATER 11/02/2013 [facility] History of tobacco use FORMER TOBACCO US ER 7Y OR GREATER 10/01/2006 [facility]
--- NOTE | 2024-05-31 08:44 | ONC.NURNOTE ---
Called [facility] to speak with Dr. Pandey regarding patients ankle swelling and order for 2 units of blood. Gave report to Gina. She is going to talk with a provider and get back to us.
--- NOTE | 2024-05-31 08:59 | ONC.NURNOTE ---
[facility] would like patient to have 20mg IV lasix in between units. This order is being faxed to us.
[2024-05-31] MEDS: 0.9 % SODIUM CHLORIDE 500 ML 250 ML IV (09:08)
[2024-05-31] MEDS: SODIUM CHLORIDE 0.9 % (FLUSH) 10 ML SYRINGE IVF (09:09)
[2024-05-31] MEDS: FUROSEMIDE 10 MG/ML inj 20 MG IV (11:29)
--- NOTE | 2024-05-31 15:02 | ONC.NURNOTE ---
Patient tolerated 2units of RBCs. Received 20mg IV Lasix in between units. Patient stated he felt better after getting blood. Patient was discharged with and [id number].
[2024-06-17] VITALS (11 sets, daily range): BP systolic 100–141; BP diastolic 52–73; PULSE 70–85; RESP 16–18; TEMP 36.1–37.2; O2SAT 95–100
--- OUTSIDE RECORDS SUMMARY | 2024-06-17 07:25 | XMS_ITS | Continuity of Care Document ---
Author Name NwDIANAN User [email or web address] Address Unknown Organization Unknown Address Unknown Procedures FILTER APPLIED:Only known Procedures with Onset Date within the last 5 years Procedure Date Procedure Provider Additional Inform ation Status ADMISSION MED REC MARKER FOR REPORTING AND BPA'S (98585) Completed ROUTINE UA WITH MICROSCOPIC ([id number]) Completed [facility] ENDOSCOPY DIAG W OR W/O BRUSH/WASH (75641) Completed Encounters FILTER APPLIED:Only known Encounters with Admission Date within the last 5 years Encounter Location Admission Discharge Billing Code Charter Representative Nguyen cook Outpatient [facility] Outpatient [facility] Outpatient [facility] Outpatient [facility] Out[facility] Inpatient [facility] Outpatient [facility] Outpatient [facility] Outpatient [facility] Outpatient [facility] Outpatient [facility] Out[facility]
--- OUTSIDE RECORDS SUMMARY | 2024-06-17 07:25 | XMS_ITS | Continuity of Care Document ---
Author Name [facility] Organization [facility] Care Team Providers Care Integrated Program Teacher Name Role Phone [facility] Unavailable Unavailable Problems Combined list of problems from Department of Defense and Veterans Affairs facilities. It does not include entries that were removed or entered in error. Problem Status Onset Date Problem Type Date of Resolution Comments Source Exposure to potentially hazardous substance ([facility] 509706120020344) Active 024 Condition Aug 19, 2023 Entered By: SABAS HUIZAR Comment: [facility] Documentation Initiative [facility] Allergic rhinitis Active Condition [facility] Allergy to bee venom (SNOMED CT 454840445) Active Condition [facility] Basal cell carcinoma of forehead Active Condition October 31, 2009 Entered By: CARYN AUGUSTINE Comment: Dr. Wright [facility] Cataract Active Condition November 02 14 Entered By: CARYN AUGUSTINE Comment: s/p L eye cataract sx 10/2012 [place] eye [facility] Cholecystectomy Active Condition Oct 01, 2006 Entered By: CARYN AUGUSTINE Comment: 01/01/07 dr. Rankin 2006 Entered By: CARYN AUGUSTINE Comment: ERCP 01/02/07 [facility] Chronic kidney disease stage 3 Active Condition [facility] Active Condition October 31 10 Entered By: CARYN AUGUSTINE Comment: ACUTE care Dr. Sneed 2014 Entered By: CARYN AUGUSTINE Comment: PCP Dr. Parks [phone] [id number] 2014 Entered By: CARYN AUGUSTINE Comment: Derm Dr. Franco 2015 Entered By: CARYN AUGUSTINE Comment: Uro Dr. Rodriguez [phone] f [facility] ELEV B/P W/OUT HTN Active Condition [facility] Elevated Prostate Specific Antigen (PSA) (ICD-9-CM 790.93) Active Condition [facility] Esophageal stricture (ICD-9-CM 530.3) Active Condition [facility] Hx Active Condition October 31 10 Entered By: CARYN AUGUSTINE Comment: m melanoma [facility] Gastroesophageal reflux disease (SNOMED CT 640403441) Active Condition [facility] History of hematuria Active Condition Oct 01, 2006 Entered By: CARYN AUGUSTINE Comment: s/p cytoscopy 02/03/06 nl exam [facility] Hypertension Active Condition [facility] Impaired fasting glucose (SNOMED CT 479118779) Active Condition [facility] 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) Active Condition [facility] Malignant neoplasm of skin Active Condition October 13, 2008 Entered By: CARYN AUGUSTINE Comment: left lower eye lid basal cell ca 2003 @[facility] Mixed hyperlipidemia * (ICD-9-CM 272.2) Active Condition [facility] Other specified forms of hearing loss (ICD-9-CM 389.8) Active Condition October 14, 2007 Entered By: CARYN AUGUSTINE Comment: buzzing and clicking noise [facility] 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 Wright [facility] Prostate cancer Active Condition Jan 14, 2016 Entered By: CARYN AUGUSTINE Comment: outside dx Wall grade 3+4 tx with hormone & radiation [facility] Renal Cyst Active Condition May 15 010 Entered By: CARYN AUGUSTINE Comment: right hemorrhagic followed non [place] urology Dr. Foster 02/22 [facility] SCREEN Active Condition October 31 10 Entered By: CARYN AUGUSTINE Comment: 2012 per pt done outside polyps x2 rec repeat 3-5yr per ptMay 2011 Entered By: CARYN AUGUSTINE Comment: AAA discuss 11/06/11 pt declined understanding riskMay 2011 Entered By: CARYN AUGUSTINE Comment: DEXA n/a [facility] SOCIAL Hx Active Condition October 31 10 Entered By: CARYN AUGUSTINE Comment: smoke deniesMay 2009 Entered By: CARYN AUGUSTINE Comment: etoh rare socialMay 2009 Entered By: CARYN AUGUSTINE Comment: drug deniesMay 2009 Entered By: CARYN AUGUSTINE Comment: marine, [age], 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 AUGUSTINE Comment: retired, 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 [facility] SURGERY Hx Active Condition October 31 010 Entered By: CARYN AUGUSTINE Comment: cholecystectomyMay 2009 Entered By: CARYN AUGUSTINE Comment: esophageal dilationMay 2013 Entered By: CARYN AUGUSTINE Comment: L cataract sx 10/2012 outsideMay 2015 Entered By: CARYN AUGUSTINE Comment: R cataract sx [facility] Diagnosis: ICD-10-CM Z00.00 Encntr for general adult medical exam w/o abnormal findings Active Diagnosis [facility] Medications Combined list of outpatient medications from Department of Defense and Veterans Affairs facilities.Medications provided include 1) outpatient medications from the last 15 months, and 2) patient-reported medications. Medication Details Route Status Patient Instructions Prescription Expires Prescription Number Last Dispense Date Ordering Provider Order Date Order Qty Source ASCORBIC ACID 500MG TAB TAKE ONE TABLET BY MOUTH EVERY DAY [facility] AZELASTINE HCL 137MCG/SPRA Y INHL,NASAL, 30ML SPRAY 1 PUFF IN EACH NOSTRIL EVERY DAY NASAL ACTIVE TRAUT,SANDRITA HARD L 2018 [facility] CHOLECALCIF ANDREI 25MCG (1,000UNIT) TAB TAKE TWO TABLETS BY MOUTH EVERY DAY ORAL ACTIVE [facility] FAMOTIDINE 20MG TAB TAKE ONE TABLET BY MOUTH TWICE A DAY ORAL ACTIVE TRAUT,SANDRITA HARD L 2021 [facility] FINASTERIDE 5MG TAB TAKE ONE TABLET BY MOUTH EVERY DAY ORAL ACTIVE TRAUT,SANDRITA HARD L 2019 [facility] FISH OIL 1000MG (500MG DHA/EPA) CAP,ORAL TAKE 1 CAPSULE BY MOUTH EVERY DAY ORAL ACTIVE [facility] [address] [facility] FLUTICASONE PROPIONATE 50MCG/SPRAY SOLN,NASAL, 16GM SPRAY 1 SPRAY IN EACH NOSTRIL EVERY DAY NASAL ACTIVE TRAUT,SANDRITA HARD L 2018 [facility] FLUTICASONE SOLN,NASAL SPRAY IN EACH NOSTRIL NASAL ACTIVE TRAUT,SANDRITA HARD L 2018 [facility] IPRATROPIUM BR 0.06% SOLN,SPRAY, NASAL SPRAY 1 SPRAY IN INHALATI ON EVERY DAY RESPIR ATORY (INHAL ATION) ACTIVE SANDRITA MCGUIRE 2018 [facility] LORATADINE 10MG TAB TAKE ONE TABLET BY MOUTH EVERY MORNING ORAL ACTIVE [facility] LOSARTAN 50MG TAB TAKE ONE-HALF TABLET BY MOUTH EVERY DAY [facility] Allergies, Adverse Reactions, Alerts Combined list of allergies from [facility] and [facility] facilities. It does not include entries that were removed or entered in error. Substance Category Reaction Severity Reaction type Status Date Reported Comments Source BEE STINGS Propensity to adverse reaction (finding) Urticaria active 1 [facility] PENICILLIN Propensity to adverse reactions to drug (finding) Eruption active 5 [facility] PROCAINE Propensity to adverse reactions to drug (finding) SWELLING (NON-SPECI FIC) active 5 [facility] Immunizations Combined list of available immunizations from the Department of [facility] and [facility] facilities. Immunization Series Date Given Administered By Site Reaction Lot Number CVX Code Drug Human Capital Manager Status Comments Source INFLUENZA VACCINE, QUADRIVALENT, ADJUVANTED [address] [facility] COVID-19 (PFIZER), MRNA, LNP-S, BIVALENT, PF, 30 MCG/0.3 ML DOSE [address] [facility] INFLUENZA, HIGH-DOSE, QUADRIVALENT [address] [facility] INFLUENZA, UNSPECIFIED FORMULATION [address] [facility] COVID-19 (PFIZER), MRNA, LNP-S, PF, 30 MCG/0.3 ML DOSE, MAYA-SUCROSE (AGES 12+ YEARS) [address] [facility] INFLUENZA, HIGH-DOSE, QUADRIVALENT [address] [facility] COVID-19 (PFIZER), MRNA, LNP-S, PF, 30 MCG/0.3 ML DOSE [address] [facility] INFLUENZA, UNSPECIFIED FORMULATION [address] [facility] COVID-19 (PFIZER), MRNA, LNP-S, PF, 30 MCG/0.3 ML DOSE [address] [facility] COVID-19 (PFIZER), MRNA, LNP-S, PF, 30 MCG/0.3 ML DOSE 1 [address] [facility] INFLUENZA, HIGH-DOSE, QUADRIVALENT [address] [facility] INFLUENZA, HIGH DOSE SEASONAL [address] [facility] ZOSTER RECOMBINANT 2 [address] [facility] ZOSTER RECOMBINANT 1 [address] [facility] INFLUENZA, HIGH DOSE SEASONAL [address] [facility] INFLUENZA, HIGH DOSE SEASONAL [address] [facility] INFLUENZA, HIGH DOSE SEASONAL [address] [facility] INFLUENZA, HIGH DOSE SEASONAL [address] [facility] TDAP 2016 115 complet ed glaxosmit hkline; [id number]; 9 [facility] INFLUENZA, HIGH DOSE SEASONAL [address] [facility] INFLUENZA, SEASONAL, INJECTABLE 2015 141 complet ed [facility] S PNEUMOCOCCAL CONJUGATE PCV [address] [facility] TDAP [address] [facility] PNEUMOCOCCAL CONJUGATE PCV 13 [address] [facility] INFLUENZA, SEASONAL, INJECTABLE 2014 141 complet ed [facility] INFLUENZA, INJECTABLE, QUADRIVALENT, PRESERVATIVE FREE [address] [facility] INFLUENZA, HIGH DOSE SEASONAL [address] [facility] INFLUENZA, INJECTABLE, QUADRIVALENT, PRESERVATIVE FREE [address] [facility] INFLUENZA, UNSPECIFIED FORMULATION [address] [facility] ZOSTER LIVE 2011 121 complet ed [employer] and C0. Lot# [id number] Exp.Date- - 3 [facility] PNEUMOCOCCAL POLYSACCHARID E PPV23 [address] [facility] TD (ADULT), 5 LF TETANUS TOXOID, PRESERVATIVE FREE, ADSORBED [address] [facility] PNEUMOCOCCAL, UNSPECIFIED FORMULATION [address] [facility] TD(ADULT) UNSPECIFIED FORMULATION 2004 139 complet ed within the last [address] [facility] Vital Signs Combined list of inpatient and outpatient Vital Signs from Department of [facility] and [facility], ranging from 12 months to all on record, depending upon the facility. Vital Sign Value Date Comments Source SYSTOLIC BLOOD PRESSURE 154 10/06/2023 07:53:58 [facility] DIASTOLIC BLOOD PRESSURE 82 10/06/2023 07:53:58 [facility] PULSE OXIMETRY 95 10/06/2023 07:53:58 [facility] WEIGHT 204.5 10/06/2023 07:53:58 [facility] BMI 29kg/m2 10/06/2023 07:53:58 [facility] PAIN 4 10/06/2023 07:53:58 [facility] HEIGHT 70 10/06/2023 07:53:58 [facility] TEMPERATURE 97.9 10/06/2023 07:53:58 [facility] PULSE 75 10/06/2023 07:53:58 [facility] RESPIRATION 17 10/06/2023 07:53:58 [facility] Encounters Combined list of: 1) Encounters from Department of [facility] facilities going back up to thelast 18 months. 2) Encounters from the Department of [facility] facilities going back up to 280 months. Location Location Details Encounter Type Encounter Number Reason For Visit Attending Provider ADM Date DC Date Status Disposition Source [facility] Outpatient Encounter [id number] 06/25 [facility] Outpatient Encounter [id number] Diagnos is: ICD-10- CM Z00.00 Encntr for general adult medical exam w/o abnorma l finding s
José Miguel DILL 10/05 [facility] Social History Combined list of available smoking, tobacco, and other social history from Department of Defense and Veterans Affairs facilities. Social History Type Response Date Comment Sour e Tobacco smoking status NHIS VA-TOBACCO QUIT 15 YRS OR MORE 10/06/2023 [facility] History of tobacco use VA-TOBACCO FORMER USER 10/06/2023 [facility] History of tobacco use VA-TOBACCO QUIT 1 5 YRS OR MORE 10/20/2022 [facility] History of tobacco use VA-TOBACCO FORMER USER 10/14/2021 [facility] History of tobacco use VA-TOBACCO QUIT 1 5 YRS OR MORE 08/27/2018 [facility] History of tobacco use FORMER TOBACCO US ER 7Y OR GREATER 09/24/2017 [facility] History of tobacco use FORMER TOBACCO US ER 7Y OR GREATER 10/27/2016 [facility] History of tobacco use FORMER TOBACCO US ER 7Y OR GREATER 10/29/2015 [facility] History of tobacco use FORMER TOBACCO US ER 7Y OR GREATER 10/13/2014 [facility] History of tobacco use FORMER TOBACCO US ER 7Y OR GREATER 11/02/2013 [facility] History of tobacco use FORMER TOBACCO US ER 7Y OR GREATER 10/01/2006 [facility]
--- OUTSIDE RECORDS SUMMARY | 2024-06-17 07:26 | XMS_ITS | Encounter Summary ---
Author Organization [place] Address [address] [place] [id number] Care Team Providers Care Tiltrotor Crew Chief Name Role Phone Jimenez Parks MD Unavailable [phone] Janis Gómez MD Unavailable Phil Patel MD Unavailable Moe Amezcua MD Unavailable Phil Patel MD Unavailable Dee Weiss MD Unavailable Rosa Moreau APRN PSYCHIATRIC SECRETARY Primary Care Provider [phone] Trang Michele MD Unavailable Rosa Moreau APRN PSYCHIATRIC SECRETARY Unavailable Encounter Details Date Type Department Care Team (Late st Contact Info) Description 03/16/2024 [facility] Medical Advice [facility] [address] [address] Jennifer Rodriguez, ROMAN Social History Tobacco Use Types Packs/Day Years Used Date Smoking Tobacco: Former Cigarettes 0.5 14 0 11/13/1956 - 11/13/1970 Smokeless Tobacco: Never Alcohol Use Standard Drinks/Week Comments Yes 0 (1 standard drink = 0.6 oz pur e alcohol) rare PHQ-2 Answer Date Recorded PHQ-2 Score 0 03/16/2024 Adolescent Education Answer Date Record ed Getting School Help Needed Not on file 03/11 Sex and Gender Information Value Date Recorded Sex Assigned at Male 02/13/2021 11:50 AM CDT Legal Sex Male 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 Gender Identity Male 02/13/2021 11:50 AM CDT Sexual Orientation Bisexual 02/13/2021 11 :52 AM CDT documented as of this encounter Plan of Treatment Upcoming Encounters Date Type Department Care Team (Late st Contact Info) Description 03/15/2025 11:30 AM CDT Office Visit [facility] [place] [address] [place] [phone] Trang Michele MD [address] [place] [phone] documented as of this encounter Visit Diagnoses Not on filedocumented in this encounter Additional Health Concerns Assessment Noted Time PHQ-9 Depression Total Score: 0 01/02/20 18 7:00 AM CDT documented as of this encounter Care Teams Tiltrotor Crew Chief Relationship Specialty Start Date End Date Rosa Moreau APRN PSYCHIATRIC SECRETARY [address] [place] [address] PCP - General Nurse Practitioner Primary Care 12/02/23 [place] [address] [place] [address] Assigned PCP 06/21/17 05/06/24 Janis Gó[place] [address] [place] [address] Assigned Nephrology Provider 02/24/21 04/05/24 Phil Patel MD [address] [place] [address] Assigned Surgical Provider 05/26/21 [place] [address] [place] [address] Assigned Musculoskeletal Provider 10/11/22 Phil Patel MD [address] [facility] [place] [address] Urology 03/04/23 Dee Weiss MD [address] [place], [place] [phone] Nephrology 10/30/23 Tragn Michele MD [address] [place] [address] Assigned Nephrology Provider 04/06/24 Rosa Moreau APRN PSYCHIATRIC SECRETARY [address] [place] [address] Assigned PCP 05/07/24 documented as of this encounter
--- OUTSIDE RECORDS SUMMARY | 2024-06-17 07:26 | XMS_ITS | Encounter Summary ---
Author Organization [facility] Address [address] [place] [address]. [place] [address] Care Team Providers Care Guitar Repairer Name Role Phone Jimenez Parks MD Unavailable [phone] Phil Patel MD Unavailable [phone] Moe Amezcua MD Unavailable Phil Patel MD Unavailable [phone] Dee Weiss MD Unavailable [phone] Rosa Moreau APRN CANVAS CUTTER HAND Primary Care Provider [phone] Trang Michele MD Unavailable Encounter Details Date Type Department Care Team (Late st Contact Info) Description 05/02/[address] [address] Rosa Moreau APRN [facility] [id number] [place] [address] Social History Tobacco Use Types Packs/Day Years Used Date Smoking Tobacco: Former Cigarettes 0.5 14 0 11/13/1956 - 11/13/1970 Smokeless Tobacco: Never Comments:Quit 1970 Alcohol Use Standard Drinks/Week Comments Yes 0 (1 standard drink = 0.6 oz pur e alcohol) rare Social Connection and Isolation Panel [NHANES] A nswer Date Recorded Frequency of Communication with Friends and Fami ly Not on file 05/02/2024 How often do you get together with friends or re latives? Once a week 05/02/2024 Attends Buddhist Services Not on file 05/02 Active Member of Clubs or Organizations Not on f ile 05/02/2024 Attends Club or Organization Meetings Not on elaine e 05/02/2024 Marital Status Not on file 05/02/2024 PHQ-2 Answer Date Recorded PHQ-2 Score 0 05/02/2024 [facility] - Occupational Stress Questionnaire Answer Date Recorded Do you feel stress - tense, restless, nervous, or anxious, or unable to sleep at night because your mind is troubled all the time - these days? To some extent 05/02/2024 Exercise Vital Sign Answer Date Recorde d On average, how many days pe r week do you engage in moderate to strenuous exercise (like a brisk walk)? 0 days 05/02/2024 On average, how many minutes do you engage in exercise at this level? 20 min 05/02/2024 Adolescent Education Answer Date Record ed Getting School Help Needed Not on file 03/11 Food Insecurity Answer Date Recorded Within the past 12 months, d id you worry that your food would run out before you got money to buy more? No 05/02/2024 Within the past 12 months, d id the food you bought just not last and you didn t have money to get more? No 05/02/2024 Housing Stability Answer Date Recorded Do you have housing? (Ke g is defined as stable permanent housing and does not include staying ouside in a car, in a tent, in an abandoned building, in an overnight usp, or couch-surfing.) Yes 05/02/2024 Are you worried about losing your housing? No 05/02/2024 Financial Resource Strain Answer Date R ecorded Within the past 12 months, h ave you or your family members you live with been unable to get utilities (heat, electricity) when it was really needed? No 05/02/2024 Transportation Needs Answer Date Record ed Within the past 12 months, h as lack of transportation kept you from medical appointments, getting your medicines, non-medical meetings or appointments, work, or from getting things that you need? 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 Patient asked if it was okay to wait to go to the ER until tomorrow. RN urged patient to be seen in the ER now. RN re-relayed message from provider and provided education for low WBC and ANC. He agrees with plan and will have his bring him to the emergency room. He asked how his kidney function looks. RN noted the CMP is in process. He denies further questionsor concerns at this time. Karen Shah RN, BSN, PHN [facility] TABLE HARVEST WORKER * Telephone Encounter - Rosa Moreau APRN CNP - 05/02/2024 2:18 PM VEGETABLE HARVEST WORKER Called patient x2 and LVM x1 to call back clinic I recommend patient goes to ER with his low WBC and ANC count especially given past history of cancer and recent sepsis. I will also send Mission Control Technologiest message If he doesn't read message or call back please try and call again around 3- 3:30pm today, thanks Rosa Moreau APRN, CANVAS CUTTER HAND TABLE HARVEST WORKER * Telephone Encounter - Rebecca Infante RN - 05/02/2024 10:15 AM VEGETABLE HARVEST WORKER Date/time of call received from lab: 05/02/24 at 10:17 AM. LAB TEST: cbc with diff - WBC LAB VALUE: WBC 1.8 then repeated it was 1.9 Auto neurophils - 0.4 the repeated it was 0.4 Ordering provider name: Rosa Moreau SANITARIAN AIDE Ordering provider department: [place] Primary Care Provider: Rosa Moreau Result managed by: Clinic Hours: Primary Care clinic staffing director. Was test ordered in Primary Care?: Yes, ordered in Primary Care Primary Care: route telephone encounter high priority to ordering provider and ordering provider's clinic Nurse pool TABLE HARVEST WORKER documented in this encounter Plan of Treatment Upcoming Encounters Date Type Department Care Team (Late st Contact Info) Description 03/15/2025 11:30 AM CDT Office Visit [facility] [address] [phone] Trang Michele MD [address] [place] [address] documented as of this encounter Visit Diagnoses Not on filedocumented in this encounter Additional Health Concerns Assessment Noted Time PHQ-9 Depression Total Score: 0 01/02/20 18 7:00 AM CDT documented as of this encounter Care Teams Guitar Repairer Relationship Specialty Start Date End Date Rosa Moreau APRN [employer] C[employer]TER [employer] [address] [place] [address] PCP - General Nurse Practitioner Primary Care 12/02/23 [place] [address] [place] [address] Assigned PCP 06/21/17 05/06/24 Phil Patel MD [address] [place] [address] Assigned Surgical Provider 05/26/21 [place] [address] [place] [address] Assigned Musculoskeletal Provider 10/11/22 Phil Patel MD [address] [facility] [place] [address] Urology 03/04/23 Dee Weiss MD [address] [place], [place] [address] Nephrology 10/30/23 Trang Michele MD [address] [place], [place] [address] Assigned Nephrology Provider 04/06/24 documented as of this encounter
--- OUTSIDE RECORDS SUMMARY | 2024-06-17 07:26 | XMS_ITS | Clinical Summary ---
Author Organization [facility] Address [address] [place] [address] Care Team Providers Care Pet Care Associate Name Role Phone Phil Patel MD Unavailable [phone] Moe Amezcua MD Unavailable Phil Patel MD Unavailable [phone] Dee Weiss MD Unavailable [phone] Rosa Moreau INFECTIOUS DISEASE TECHNICIAN GAS WORKER Primary Care Provider [phone] Trang Michele MD Unavailable Rosa Moreau INFECTIOUS DISEASE TECHNICIAN GAS WORKER Unavailable [phone] Allergies Active Allergy Reactions Criticality Noted Date Comments Bee Venom 08/08/2010 Lisinopril Cough 06/20/2016 Losartan Other (See Comments) 07/05/2019 Back pain (4%) at 50, not at 25 Penicillins Other (See Comments) High 11/10/2002 angioedema Procaine Hcl 11/10/2002 Medications EPINEPHrine (ANY BX GENERIC EQUIV) 0.3 MG/0.3ML injection 2-pack Inject 0.3 mLs into the muscle as needed for anaphylaxis Active finasteride (PROSCAR) 5 MG tablet Take 5 mg by mouth at bedtime Active mometasone (NASONEX) 50 MCG/ACT nasal spray [place] 1 spray into both nostrils daily Active pantoprazole (PROTONIX) 40 MG EC tabletIndication s: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 18.2 g 3 4 Active losartan (COZAAR) 25 MG tabletIndication s:Essential hypertension Take 1 tablet (25 mg) by mouth daily. 90 tablet 4 Active Active Problems Problem Noted Date Diagnosed Date Bacteremia 01/23/2024 Liver abscess 01/23/2024 Sepsis 01/21/2024 Lactic acidosis 01/20/2024 LBBB (left bundle branch block) 01/20/2024 Weakness 01/20/2024 Elevated troponin 01/20/2024 Upper respiratory tract infection, unspecified t ype 01/20/2024 Melanoma of skin 01/20/2023 Dysphagia, unspecified type 12/25/2022 Assessment & Plan (12/25/2022 3:11 PM CDT): Occasional, brief. Recommend water before/after each bite. Increase famotidine. Study Microalbuminuria 09/24/2022 Basal cell carcinoma of forehead 09/23/2022 09/23/2022 Overview (09/23/2022): October 31, 2009 Entered By: CARYN AUGUSTINE Comment: Dr. 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 Foster 02/22 Assessment & Plan (12/25/2022 3:14 PM CDT): Nephrology appt Feb. Continue ARB Disorder of gallbladder 09/23/2022 09/24/19 Overview (09/23/2022): Oct 01, 2006 Entered By: CARYN AUGUSTINE Comment: 01/01/07 dr. FryeOct 01, 2006 Entered By: CARYN AUGUSTINE Comment: ERCP 01/02/07 Fecal soiling 09/23/2022 09/23/2022 High prostate specific antigen (PSA) 09/23/2022 09/23/2022 Other ill-defined and unknow n causes of morbidity and mortality 09/23/2022 09/23/2022 Overview (09/23/2022): October 31, 2009 Entered By: CARYN AUGUSTINE Comment: 2012 per pt done outside polyps x2 rec repeat 3-5yr per ptMay 2011 Entered By: CARYN AUGUSTINE Comment: AAA discuss 11/06/11 pt declined understanding riskMay 2011 Entered By: CARYN AUGUSTINE Comment: DEXA n/a October 31, 2009 Entered By: CARYN AUGUSTINE Comment: smoke deniesMay 2009 Entered By: CARYN AUGUSTINE Comment: etoh rare socialMay 2009 Entered By: CARYN AUGUSTINE Comment: drug deniesMay 2009 Entered By: CARYN AUGUSTINE Comment: marine, [age], 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 AUGUSTINE Comment: retired, 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 October 31, 2009 Entered By: CARYN AUGUSTINE Comment: cholecystectomyMa2009 Entered By: CARYN AUGUSTINE Comment: esophageal dilationMay 2013 Entered By: CARYN AUGUSTINE Comment: L cataract sx 10/2012 outsideMay 2015 Entered By: CARYN AUGUSTINE Comment: R cataract sx October 31, 2009 Entered By: CARYN AUGUSTINE Comment: ACUTE care Dr. Sneed 2014 Entered By: CARYN AUGUSTINE Comment: PCP Dr. Parks [phone] 2014 Entered By: CARYN AUGUSTINE Comment: Derm Dr. Franco 2015 Entered By: CARYN AUGUSTINE Comment: Uro Dr. Rodriguez [phone] October 31, 2009 Entered By: CARYN AUGUSTINE Comment: m melanoma Oct 01, 2006 Entered By: CARYN AUGUSTINE Comment: s/p cytoscopy 02/03/06 nl exam Progressive pigmentary dermatosis of [place] 0 09/23/2022 09/23/2022 Overview (09/23/2022): October 13, 2014 Entered By: CARYN AUGUSTINE Comment: Derm Dr. Wright Assessment & Plan (12/25/2022 3:13 PM CDT): Anterior pearce brawny changes Other specified forms of hearing loss 09/23/2022 09/23/2022 Overview (09/23/2022): October 14, 2007 Entered By: CARYN AUGUSTINE Comment: buzzing and clicking noise Rectal hemorrhage 09/23/2022 09/23/2022 Stricture of esophagus 09/23/2022 Assessment & Plan (12/25/2022 3:13 PM CDT): In the past. Restudy Snoring 09/23/2022 Assessment & Plan (09/23/2022 10:02 PM CDT): reports that he snores as well as bracing with open mouth during the day. Discussed AVANI, which he is skeptical of Primary osteoarthritis of right hip 09/23/2022 Assessment & Plan (12/25/2022 3:13 PM CDT): Pain opinion is this is primary. Orthopedics has injected steroid, he finds results minimal. Revisit Assessment & Plan (09/23/2022 10:01 PM CDT): He has pain in his hip to rotation both internal and external with radiographic evidence of OA. He believes this is his back, but clinically this is his hip. Refer to orthopedics Bradycardia 01/21/2022 Assessment & Plan (01/21/2022 9:24 AM CDT): Pos FHx in sibs suggests genetic component. Asymptomatic. Monitor clinically SVT (supraventricular tachycardia) 01/21/2022 Assessment & Plan (09/23/2022 10:02 PM CDT): No subjective recurrences Assessment & Plan (01/21/2022 9:24 AM CDT): Asymptomatic. Discussed. Monitor. No additional evaluation Lumbar radiculopathy 11/15/2021 Assessment & Plan (09/23/2022 10:03 PM CDT): EMG demonstrated, he had 100% success with physical therapy. This was thereafter followed by a fall on the ice, and pain now in his right leg about the hip buttocks and lateral knee. He believes this must be from his back. Exam suggests that this is related to his hip as well as his lateral knee bursa. He wonders if we can get him into pain management sooner, with an appointment 5 weeks hence. I recommend instead that we address his current symptoms of hip and knee pain with orthopedic referral. He will keep his pain management appointment for October Assessment & Plan (04/24/2022 11:23 AM SENIOR HEALTH PHYSICS TECHNICIAN): Began flexing hard to trim toenails. Improving., now often pain free, worse in bed, occ wakens him. Discussed. He wonders if PT would help, chiropractic. Discussed operative interventions, consider MR pre surgical. He would like to try PT and observe, as well as get a service to care for his nails Assessment & Plan (03/24/2022 1:56 PM CDT): Pos EMG Assessment & Plan (01/21/2022 9:23 AM CDT): NCV is scheduled Assessment & Plan (11/15/2021 8:02 AM CDT): He reports discomfort in his right lateral calf at night. This responds to getting out of bed and walking around. He has had this for a number of months and occasionally extends from hip to ankle. Spinal stenosis versus radiculopathy. Exam unrevealing. Broaden database Midline low back pain without sciatica Assessment & Plan (10/31/2019 8:21 AM CDT): He reports low back pain twice a week which he blames on his losartan. I recommend he hold it for 2 weeks and rechallenge. Anticipate no relationship Hepatic cyst 07/05/2019 Assessment & Plan (07/05/2019 8:26 PM SENIOR HEALTH PHYSICS TECHNICIAN): Multiple. Benign. Discussed. No further evaluation Renal cyst 07/05/2019 Overview (11/15/2021): Polycystic kidney disease Assessment & Plan (11/15/2021 8:28 AM CDT): He has questions about his renal cysts. discussed Assessment & Plan (07/05/2019 8:26 PM SENIOR HEALTH PHYSICS TECHNICIAN): Likely congenital. Urology evaluation continues Secondary hyperparathyroidism of renal origin Assessment & Plan (09/23/2022 10:04 PM CDT): Nephrology follows. Notes reviewed Assessment & Plan (11/15/2021 8:03 AM CDT): He is followed by nephrology Assessment & Plan (07/23/2020 12:39 PM SENIOR HEALTH PHYSICS TECHNICIAN): He was placed on vitamin D, but this was not followed up. We should do so now. Given his excellent GFR, this may be primary Elevated glucose 03/29/2019 Assessment & Plan (12/25/2022 3:15 PM CDT): Not prediabetes. Yearly A1c Assessment & Plan (09/23/2022 10:04 PM CDT): [employer] database Assessment & Plan (11/15/2021 8:04 AM CDT): Hemoglobin A1C POCT Date Value Ref Range Status 05/25/2020 5.2 0 - 5.6 % Final Comment: Normal <5.7% Prediabetes 5.7-6.4% Diabetes 6.5% or higher - adopted from ADA consensus guidelines. Hemoglobin A1C Date Value Ref Range Status 11/14/2021 5.3 0.0 - 5.6 % Final Comment: Normal <5.7% Prediabetes 5.7-6.4% Diabetes 6.5% or higher Note: Adopted from ADA consensus guidelines. Not prediabetes. Reassess periodically Assessment & Plan (03/29/2019 9:26 AM CDT): Glucose Date Value Ref Range Status 07/01/2018 98 70 - 99 mg/dL Final 12/31/2017 101 (H) 70 - 99 mg/dL Final Comment: Fasting specimen 03/10/2017 83 70 - 99 mg/dL Final Comment: Non Fasting 11/04/2016 101 (H) 70 - 99 mg/dL Final 07/03/2016 125 (H) 70 - 99 mg/dL Final Periodic A1C Anxiety 05/04/2017 H/O malignant neoplasm of prostate 11/04/2016 Assessment & Plan (07/23/2020 12:34 PM SENIOR HEALTH PHYSICS TECHNICIAN): Urology plans 5-year review in September with x-ray and lab Assessment & Plan (10/31/2019 8:21 AM CDT): Urology appointment in November. He has read on the Internet that finasteride can cause prostate cancer. Discussed Assessment & Plan (03/31/2019 8:44 PM CDT): Urology History of Cornejo's esophagus 06/03/2016 Assessment & Plan (12/25/2022 3:16 PM CDT): Remote. restudy Assessment & Plan (03/31/2019 8:43 PM CDT): No symptoms. PPI. EGD every 3 years Stage 3a chronic kidney disease 10/19/2015 Assessment & Plan (12/25/2022 3:16 PM CDT): Almost normalized GFR. Nephrology ARB Assessment & Plan (09/23/2022 10:04 PM CDT): GFR Estimate Date Value Ref Range Status 08/18/2022 53 (L) >60 mL/min/1.73m2 Final Comment: eGFR calculated using 2020 CKD-EPI equation. 11/28/2020 46 (L) >60 mL/min/[1.73_m2] Final Comment: Non GFR Calc Starting 06/01/2018, serum creatinine based estimated GFR (eGFR) will be calculated using the Chronic Kidney Disease Epidemiology Collaboration (CKD-EPI) equation. ARB Assessment & Plan (11/15/2021 8:04 AM CDT): Almost normalized. Medicines adjusted by nephrology Assessment & Plan (11/18/2020 8:22 PM CDT): As of last measure Assessment & Plan (07/23/2020 12:39 PM SENIOR HEALTH PHYSICS TECHNICIAN): Discussed his excellent glomerular function for a man of his age Assessment & Plan (10/31/2019 8:22 AM CDT): On ARB. Almost normal. GFR Estimate Date Value Ref Range Status 06/30/2019 45 (L) >60 mL/min/[1.73_m2] Final Assessment & Plan (07/05/2019 8:28 PM SENIOR HEALTH PHYSICS TECHNICIAN): GFR Estimate Date Value Ref Range Status 06/30/2019 45 (L) >60 mL/min/[1.73_m2] Final ARB Assessment & Plan (05/04/2019 6:06 AM SENIOR HEALTH PHYSICS TECHNICIAN): Discussed natural history, recommend increased water intake. Broaden database ARB Assessment & Plan (03/31/2019 8:45 PM CDT): Measure. Losartan Tubular adenoma of colon 10/18/2015 Essential hypertension 10/18/2015 Assessment & Plan (12/25/2022 3:17 PM CDT): Controlled. Continue. Check twice yearly Assessment & Plan (01/21/2022 9:23 AM CDT): Controlled on losartan 25. Continue. Adverse reaction to higher dose resolved Assessment & Plan (11/15/2021 8:06 AM CDT): Borderline control. inCrease losartan. Discussed geriatric tolerance. He will contact us if dizziness ensues Assessment & Plan (11/18/2020 8:22 PM CDT): Controlled continue Assessment & Plan (07/23/2020 12:34 PM SENIOR HEALTH PHYSICS TECHNICIAN): Borderline control at last measure. Discussed he reports blood pressure 112/88 this morning at home. No changes Assessment & Plan (10/31/2019 8:20 AM CDT): He reports blood pressures of 127/72. Assessment & Plan (07/05/2019 8:28 PM SENIOR HEALTH PHYSICS TECHNICIAN): BP Readings from Last 1 Encounters: 07/05/19 128/72 He find higher doses of this his losartan yielded back pain. 1 to 4%. Regardless, current dose with control blood pressure. Monitor suspect back pain more likely related to nephrolithiasis than losartan Assessment & Plan (05/04/2019 6:06 AM SENIOR HEALTH PHYSICS TECHNICIAN): Borderline control increase Cozaar 50mg Assessment & Plan (03/29/2019 9:38 AM CDT): Controlled, continue Losartan 25mg. Overweight 10/18/2015 Cataract 10/18/2015 Hyperlipidemia LDL goal <160 10/17/2015 Overview (11/11/2016): 20.9% 10 year risk 09/2014 Assessment & Plan (07/23/2020 12:36 PM SENIOR HEALTH PHYSICS TECHNICIAN): He has long declined statin use Knee pain 05/21/2012 Chronic rhinitis 05/30/2011 Overview (03/31/2019): Model is years of sinus infections Assessment & Plan (12/25/2022 3:10 PM CDT): Active at this time. On triple nasal therapies. Continue Assessment & Plan (04/24/2022 11:20 AM SENIOR HEALTH PHYSICS TECHNICIAN): On 3 agents, sx not eliminated. He wonders if he should have a CT. I recommend a referral, discussed Assessment & Plan (11/15/2021 8:01 AM CDT): He reports that his season is started. He is on 3 therapies with some benefit. Discussed. Assessment & Plan (11/18/2020 8:21 PM CDT): Discussed current nasal Rxs. Alternate agents trial, increase nasal steroid dose Assessment & Plan (07/23/2020 12:33 PM SENIOR HEALTH PHYSICS TECHNICIAN): 3 nasal sprays. Discussed air particle reduction, household humidifier. He is using decongestants. Discussed rebound. Assessment & Plan (10/31/2019 8:22 AM CDT): Responsive to multiple nasal sprays. Assessment & Plan (05/04/2019 6:05 AM SENIOR HEALTH PHYSICS TECHNICIAN): Continue measures. Recommended Vaseline to internal nares, nasal sprays alcohol free Assessment & Plan (03/31/2019 8:42 PM CDT): Effective, continue Singulair 10mg. Nasal steroids, atrovent refilled at [place]. Hx of skin cancer, basal cell 05/30/2011 Contact dermatitis and other eczema, due to unspecified cause 10/28/2004 Impotence of organic origin 10/28/2004 Resolved Problems Problem Noted Date Diagnosed Date Resolved Date Hemosiderin pigmentation of skin 12/24/2022 12/24/2022 Hip pain, right 10/21/2022 12/12/2022 Elevated blood pressure read ing without diagnosis of hypertension 09/23/2022 09/23/2022 12/24/2022 Assessment & Plan (09/23/2022 10:05 PM CDT): Elevated today BP Readings from Last 6 Encounters: 09/23/22 (!) 156/80 08/21/22 137/86 04/24/22 131/76 09/19/22 128/71 01/21/22 138/70 11/14/21 (!) 148/70 Monitor Impaired fasting glucose 09/23/2022 09/23/202204/2023 Trochanteric bursitis of right hip 09/23/2022 12/24/2022 Assessment & Plan (09/23/2022 10:02 PM CDT): Some of his leg pain is reproduced by palpation of the trochanteric bursa. Orthopedic referral Other fatigue 09/23/2022 05/02/2024 Assessment & Plan (09/23/2022 10:02 PM CDT): Fatigue that he dates to his COVID infection last fall. reports snoring, he falls asleep during conversations. This is consistent with AVANI. Discussed. He is opposed to a sleep lab study, which may lead to no diagnosis. He will except a home study. We will refer to the [facility], as well as [employer] database History of 2019 novel mack virus disease (COVID-19) 09/23/2022 05/02/2024 Assessment & Plan (12/25/2022 3:12 PM CDT): He did not go to [facility], but feels better, still with some fatigue. Assessment & Plan (09/23/2022 10:00 PM CDT): He believes his fatigue dates to his COVID infection. History suggests obstructive sleep apnea. Discussed differential. He will except a home sleep study, but will not going to a sleep lab. We will refer to the [facility] database Encounter for administration of COVID-19 vaccine 09/23/2022 05/02/2024 Assessment & Plan (09/23/2022 10:00 PM CDT): Offered Encounter for immunization 11/15/2021 1 07/02/2023 Assessment & Plan (04/24/2022 11:25 AM SENIOR HEALTH PHYSICS TECHNICIAN): He is willing, would like 1 at a time Assessment & Plan (11/15/2021 8:01 AM CDT): Offered Acute sinusitis with symptoms > 10 days 11/18/2020 01/21/2022 Assessment & Plan (11/18/2020 8:21 PM CDT): By definition. Treat Stage 3b chronic kidney disease 11/18/2020 11/15/2021 Assessment & Plan (11/18/2020 8:22 PM CDT): As of today's measure.ARB Refer History of gross hematuria 07/05/2019 0 11/15/2020 Assessment & Plan (07/05/2019 8:27 PM SENIOR HEALTH PHYSICS TECHNICIAN): Under evaluation by urology. Periodic large quantities, interspersed with clear urine painless Coryza 03/31/2019 03/31/2019 Pain in both hands 01/14/2018 8 Generalized osteoarthritis of hand 01/14/2018 03/09/2018 Prostate cancer 12/24/2015 11/04/2016 Advance care planning 05/30/20112023 Overview (05/30/2011): Advance Directive Problem List Overview: Name Relationship Phone Primary Health Care Agent Alternative Health Care Agent Discussed advance care planning with patient; information given to patient to review. 05/30/2011 CARDIOVASCULAR SCREENING; LD L GOAL LESS THAN 160 04/14/2010 10/17/2015 Overview (10/03/2014): 20.9% 10 year risk 09/2014 Esophageal reflux 10/28/2004 01/16/2006 Esophageal reflux 03/31/2019 Other malignant neoplasm of skin of trunk, except scrotum 05/30/2011 Overview (01/05/2013): on back - basal cell Problem list name updated by automated process. Provider to review and confirm Hematuria 08/08/2010 Overview (02/16/2013): seen by Dr. Ames; resolved, due to prostatitis Problem list name updated by automated process. Provider to review and confirm Imo Update utility Bee sting reaction Encounters Date Type Department Care Team Description 05/27/2024 Orders Only [facility] [address] [place] [address] Phil Patel MD Prostate cancer (H) (Primary Dx); Nephrolithiasis 05/03/[address] [phone] Rosa Moreau APRN GAS WORKER Medication Question 05/02/2024 5:27 PM SENIOR HEALTH PHYSICS TECHNICIAN - 05/02/2024 9:10 PM SENIOR HEALTH PHYSICS TECHNICIAN Emergency [facility] Emergency Dept [address] [place] [phone] Jimenez Dao MD Pancytopenia (H) Discharge Disposition: Home or Self Care 05/02/2024 9:30 AM SENIOR HEALTH PHYSICS TECHNICIAN Office Visit [address] [phone] Rosa Moreau APRN GAS WORKER Encounter for Medicare annual wellness exam (Primary Dx); Stage 3a chronic kidney disease (H); 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); Essential hypertension; Subacute frontal sinusitis; Seasonal allergic rhinitis, unspecified trigger; Need for influenza vaccination; Need for COVID-19 vaccine 05/02/[address] [phone] Rosa Moreau APRN GAS WORKER 05/02/2024 Travel 04/28/[address] [phone] Rosa Moreau APRN GAS WORKER 03/30/[address] [phone] Rosa Moreau APRN GAS WORKER Patient Request 03/29/2024 9:30 AM CDT Lab [facility] [address] [place] [phone] Anemia, unspecified type 03/29/2024 MyC Medical Advice [facility] [address] [place] [address] Kierra Gresham RN 03/29/2024 Travel 03/21/2024 Documentation Only [facility] [address] [facility] [address] [place] [phone] Trang Michele MD 03/21/2024 Telephone [facility] [address] [place] [address] Rosa Moreau, COURTNEY GAS WORKER Call Back ([place] and [place] both have COVID currently - rescheduling appts to 0ct 15th @ 930 am ) from Last 3 Months Immunizations Name Administration Dates Next Due COVID-19 12+ (Pfizer) 05/02/2024 COVID-19 Bivalent 12+ (Pfizer) 09/23/2022 COVID-19 MONOVALENT 12+ (Pfizer) 08/22/2020,07/16 COVID-19 Monovalent 12+ (Pfizer 2021) 11/14/2021 Flu, Unspecified 02/21/2022,03/19/2021, 3 Influenza (High Dose) Trival ent,PF (Fluzone) 05/02/2024,04/13/2020,03/29/2019,2017,03/15/2018,03/10/2017,05/13/2016,1 07/05/2013 Influenza (IIV3) PF 02/14/2016,04/15/2015 Influenza Vaccine 65+ (FLUAD) 06/25/2023 Influenza Vaccine 65+ (Fluzone HD) 04/24/2022,,04/13/2020 Influenza Vaccine >6 months,quad, PF 04/04/2015, 05/31/2013 Pneumo Conj 13-V (2010&after) 10/18/2015 Pneumococcal 23 valent 01/16/2006 Pneumococcal, Unspecified 01/01/2006 TD,PF 7+ (Tenivac) 01/16/2006 TDAP Vaccine (Adacel) 10/27/2016,10/18/2015 TDAP Vaccine (Boostrix) 10/27/2016,10/18/2015 Tdap (Adult) Unspecified Formulation 06/15/2004 Zoster recombinant adjuvante d (SHINGRIX) 12/21/2018,10/12/2018 Zoster vaccine, live 11/06/2011 Family History * Patient is adopted Medical History Relation Comments Bradycardia Brother 1 Gastrointestinal Disease Brother 1 gallsto tim Lipids Brother 2 Hypertension Brother 3 Cancer Mother biological mothe r - sinus cancer Gastrointestinal Disease Mother gallsto tim Bradycardia Sister Gastrointestinal Disease Sister gallsto tim Colon Cancer No family hx of Unknown/Adopted No family hx of Relation Status Comments Brother 1 Brother 2 Brother 3 Father Other Mother Sister Social History Tobacco Use Types Packs/Day Years Used Date Smoking Tobacco: Former Cigarettes 0.5 14 0 11/13/1956 - 11/13/1970 Smokeless Tobacco: Never Tobacco Cessation:Counseling Given: Not Answered Comments:Quit 1970 Alcohol Use Standard Drinks/Week Comments Yes 0 (1 standard drink = 0.6 oz pur e alcohol) rare Social Connection and Isolation Panel [NHANES] A nswer Date Recorded Frequency of Communication with Friends and Fami ly Not on file 05/02/2024 How often do you get together with friends or re latives? Once a week 05/02/2024 Attends L[employer] Day Services Not on file 05/02 Active Member of Clubs or Organizations Not on f ile 05/02/2024 Attends Club or Organization Meetings Not on elaine e 05/02/2024 Marital Status Not on file 05/02/2024 PHQ-2 Answer Date Recorded PHQ-2 Score 0 05/02/2024 [facility] - Occupational Stress [...] Date Recorded Do you have housing? (Ke khan is defined as stable permanent housing and does not include staying ouside in a car, in a tent, in an abandoned building, in an overnight half-way, or couch-surfing.) Yes 05/02/2024 Are you worried [...] AM CDT Legal Sex Male 3:31 AM SENIOR HEALTH PHYSICS TECHNICIAN Gender Identity Male 02/13/2021 11:50 AM CDT Sexual Orientation Bisexual 02/13/2021 11 :52 AM CDT Last Filed Vital Signs Vital Sign Reading Time Taken Comments Blood Pressure 140/99 05/02/2024 9:00 PM SENIOR HEALTH PHYSICS TECHNICIAN Pulse 66 05/02/2024 9:00 PM SENIOR HEALTH PHYSICS TECHNICIAN Temperature 36.8 C (98.2 F) 05/02/2024 5:08 PM SENIOR HEALTH PHYSICS TECHNICIAN Respiratory Rate 20 05/02/2024 5:08 PM SENIOR HEALTH PHYSICS TECHNICIAN Oxygen Saturation 95% 05/02/2024 9:00 PM SENIOR HEALTH PHYSICS TECHNICIAN Inhaled Oxygen Concentration - - Weight 95.7 kg (210 lb 15.7 oz) 05/02/2024 5:08 PM SENIOR HEALTH PHYSICS TECHNICIAN Height 182.9 cm (6') 05/02/2024 5:08 PM SENIOR HEALTH PHYSICS TECHNICIAN Body Mass Index 28.61 05/02/2024 5:08 PM SENIOR HEALTH PHYSICS TECHNICIAN Plan of Treatment Upcoming Encounters Date Type Department Care Team (Late st Contact Info) Description 03/15/2025 11:30 AM CDT Office Visit [facility] [address] [place] [address] [address] [place] [phone] Trang Michele MD [address] [place] [id number] Health Maintenance Due Date Last Done Comments RSV VACCINE (1 - 1-dose 75+ series) 12/18/2014 BMP 10/30/2024 05/02/2024, 04/15, 03/09/2024, Additional history exists A1C 01/27/2025 01/28/2024, 09/13, 11/14/2021, Additional history exists ANNUAL REVIEW OF HM ORDERS 01/27/202501/27, 11/14/2021, 05/24/2020, Additional history exists MICROALBUMIN 03/09/2025 03/09/2024, 01/13, 09/24/2022, Additional history exists FALL RISK ASSESSMENT 05/02/2025 05/02/2024, 01/28/2024, 12/24/2022, Additional history exists HEMOGLOBIN 05/02/2025 05/02/2024, 04/15, 03/09/2024, Additional history exists MEDICARE ANNUAL WELLNESS VISIT 05/02/2025 05/02/2024, 12/24/2022, 11/14/2021, Additional history exists DTAP/TDAP/TD IMMUNIZATION (7 - Td or Tdap) 10/27/2026 10/27/2016, 10/27/2016, 10/18/2015, Additional history exists ADVANCE CARE PLANNING 05/02/2029 05/02/2024 , 05/02/2024, 12/25/2022, Additional history exists LIPID Discontinued 10/18/2015, 09/14, 11/15/2012, Additional history exists Pneumococcal Vaccine: 50+ Years Completed 10/18/2015, 01/16/2006, 01/01/2006 ZOSTER IMMUNIZATION Addressed 03/29/2019, 12/21/2018, 10/12/2018, Additional history exists Overridden with the intention of not completing the topic COVID-19 Vaccine Completed 05/02/2024, 04/2023, 11/14/2021, Additional history exists INFLUENZA VACCINE Completed 05/02/2024, , 04/24/2022, Additional history exists PHQ-2 (once per calendar year) Completed 05/02/2024, 03/16/2024, 03/02/2023, Additional history exists URINALYSIS Completed 05/02/2024, 02/14, 02/05/2024, Additional history exists HPV IMMUNIZATION Aged Out No longer e ligible based on patient's age to complete this topic MENINGITIS IMMUNIZATION Aged Out No l onger eligible based on patient's age to complete this topic RSV MONOCLONAL ANTIBODY Aged Out No l onger eligible based on patient's age to complete this topic Medical Devices Implanted Type Area Executive Marketing Assistant Device Identifier Shelf Expiration Date Model / Serial / Lot Eye Imp Iol Ced Pcl Technis Zcb00 21.0 Implanted:Qty: 1 on 11/18/2012 by Eric Jones MD at [facility] Left: Eye [employer] OPT 07/14/2016 ZCB00 21.0 / [id number] / Eye Imp Iol [place] Pcl Tecnis Zcb00 21.0 Implanted:Qty: 1 on 01/03/2016 by Eric Jones MD at [facility] Right: Eye [employer] OPT 08/09/2019 ZCB00 21.0 / [id number] / Procedures Procedure Name Priority Date/Time Associated Diagnosis Comments BLOOD CULTURE STAT 05/02/2024 7:07 PM SENIOR HEALTH PHYSICS TECHNICIAN LACTIC ACID WHOLE BLOOD STAT 05/02/2024 7:07 PM SENIOR HEALTH PHYSICS TECHNICIAN EKG 12-LEAD, TRACING ONLY STAT 05/02/2024 5:43 PM SENIOR HEALTH PHYSICS TECHNICIAN ROUTINE UA WITH MICROSCOPIC REFLEX TO CULTURE STAT 05/02/2024 5:30 PM SENIOR HEALTH PHYSICS TECHNICIAN ABO/RH TYPE AND SCREEN STAT 5:23 PM SENIOR HEALTH PHYSICS TECHNICIAN CBC WITH PLATELETS & DIFFERENTIAL STAT 05/02/2024 5:23 PM SENIOR HEALTH PHYSICS TECHNICIAN TYPE AND SCREEN, ADULT STAT 5:23 PM SENIOR HEALTH PHYSICS TECHNICIAN RBC AND PLATELET MORPHOLOGY STAT 05/02/2024 5:23 PM SENIOR HEALTH PHYSICS TECHNICIAN EXTRA RED TOP TUBE STAT 05/02/2024 5: 23 PM SENIOR HEALTH PHYSICS TECHNICIAN EXTRA BLUE TOP TUBE STAT 05/02/2024 5 :23 PM SENIOR HEALTH PHYSICS TECHNICIAN CBC WITH PLATELETS AND DIFFERENTIAL STAT 05/02/2024 5:23 PM SENIOR HEALTH PHYSICS TECHNICIAN EXTRA TUBE STAT 05/02/2024 5:23 PM SENIOR HEALTH PHYSICS TECHNICIAN LACTIC ACID WHOLE BLOOD WITH 1X REPEAT IN 2 HR WHEN >2 STAT 05/02/2024 5:23 PM SENIOR HEALTH PHYSICS TECHNICIAN COMPREHENSIVE METABOLIC PANEL STAT 05/02/2024 5:23 PM SENIOR HEALTH PHYSICS TECHNICIAN CBC WITH PLATELETS & DIFFERENTIAL Routine 05/02/2024 10:02 AM SENIOR HEALTH PHYSICS TECHNICIAN 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) RBC AND PLATELET MORPHOLOGY Routine 05/02/2024 10:02 AM SENIOR HEALTH PHYSICS TECHNICIAN 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) CBC WITH PLATELETS AND DIFFERENTIAL Routine 05/02/2024 10:02 AM SENIOR HEALTH PHYSICS TECHNICIAN 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) BASIC METABOLIC PANEL Routine 05/02/2024 10:02 AM SENIOR HEALTH PHYSICS TECHNICIAN Stage 3a chronic kidney disease (H) METHYLMALONIC ACID Routine 03/29/2024 9: 21 AM CDT Anemia, unspecified type FOLATE Routine 03/29/2024 9:21 AM CDT Anemia, unspecified type ALBUMIN RANDOM URINE QUANTITATIVE Routine 03/09/2024 11:01 AM CDT Stage 3b chronic kidney disease (H) HEMOGLOBIN A1C Add-On 01/28/2024 3:25 PM CDT Elevated glucose LIPID PROFILE Routine 10/18/2015 9:01 AM CDT Hyperlipidemia LDL goal <160 from Last 3 Months or Most Recently Relevant to Health Maintenance Results * Lactic acid whole blood (05/02/2024 7:07 PM SENIOR HEALTH PHYSICS TECHNICIAN) Pathologist [facility] Lactic Acid 1.8 0.7 - 2.0 mmol/L 05/02/2024 7:13 PM SENIOR HEALTH PHYSICS TECHNICIAN [facility] Blood STRUCTURE OF RIGHT UPPER LIMB / Unknown Venipuncture / Unknown 05/02/2024 7:07 PM SENIOR HEALTH PHYSICS TECHNICIAN 05/02/2024 7:11 PM SENIOR HEALTH PHYSICS TECHNICIAN us Jimenez Dao MD LAB - BLOOD ORDERABLES Final Result LABORATORY [facility] Acute Care Lab [address] Lab (1st floor, no room number) [place] [address] * Blood Culture Arm, Right (05/02/2024 7:07 PM SENIOR HEALTH PHYSICS TECHNICIAN) Pathologist [facility] Culture No Growth 05/07/2024 11:16 PM SENIOR HEALTH PHYSICS TECHNICIAN [facility] Blood STRUCTURE OF RIGHT UPPER LIMB / Unknown Venipuncture / Unknown 05/02/2024 7:07 PM SENIOR HEALTH PHYSICS TECHNICIAN 05/02/2024 7:11 PM SENIOR HEALTH PHYSICS TECHNICIAN us Jimenez Dao MD LAB - MICRO GENERAL ORDERABL ES Final Result [facility]ORATORY [facility] Inf. Diseases Diag. Lab [address] [facility] [place] [address] * EKG 12 lead (05/02/2024 5:43 PM SENIOR HEALTH PHYSICS TECHNICIAN) Systolic Blood Pressure mmHg RADIOLOGY RESULTS Diastolic Blood Pressure mmHg RADIOLOGY RESULTS Ventricular Rate 73 BPM RAD IOLOGY RESULTS Atrial Rate 73 BPM RADIOLOG Y RESULTS [place] Interval 178 ms RADIOLOG Y RESULTS QRS Duration 156 ms RADIOLO GY RESULTS QT 452 ms RADIOLOGY RESULTS QTc 497 ms RADIOLOGY RESULTS P [place] 67 degrees RADIOLOGY RESULTS R AXIS 61 degrees RADIOLOGY RESULTS T [place] -83 degrees RADIOLOGY RESULTS Interpretation ECG Sinus rhythm Left bundle branch block Abnormal ECG When compared with ECG of 20-Jan-2024 03:40, T wave inversion more evident in Inferior leads Confirmed by - EMERGENCY ROOM, PHYSICIAN ([id number]), newspaper copy editor JUVENAL TOLLIVER ([id number]) on 05/03/2024 6:46:37 AM RADIOLOGY RESULTS 05/02/2024 5:43 PM SENIOR HEALTH PHYSICS TECHNICIAN 05/03/2024 6:46 AM SENIOR HEALTH PHYSICS TECHNICIAN us Jimenez Dao MD ECG ORDERABLES Edited Resul t - Final RADIOLOGY RESULTS * UA with Microscopic reflex to Culture (05/02/2024 5:30 PM SENIOR HEALTH PHYSICS TECHNICIAN) Color Urine Light Yellow Colorless, Straw, Light Yellow, Yellow 05/02/2024 5:55 PM SENIOR HEALTH PHYSICS TECHNICIAN [facility] Appearance Urine Clear Clear 05/02/20 5:55 PM SENIOR HEALTH PHYSICS TECHNICIAN LABORATORY Glucose Urine Negative Negative mg/dL 05/02/2024 5:55 PM SENIOR HEALTH PHYSICS TECHNICIAN [facility] Bilirubin Urine Negative Negative 5:55 PM SENIOR HEALTH PHYSICS TECHNICIAN [facility] Ketones Urine Negative Negative mg/dL 05/02/2024 5:55 PM SENIOR HEALTH PHYSICS TECHNICIAN [facility] Specific [place] Urine 1.014 1.003 - 1.035 05/02/2024 5:55 PM SENIOR HEALTH PHYSICS TECHNICIAN [facility] Blood Urine Negative Negative 05/02/2024 5:55 PM SENIOR HEALTH PHYSICS TECHNICIAN LABORATORY pH Urine 5.0 5.0 - 7.0 05/02/2024 5:55 PM SENIOR HEALTH PHYSICS TECHNICIAN [facility] Protein Albumin Urine Negative Negative mg/dL 05/02/2024 5:55 PM SENIOR HEALTH PHYSICS TECHNICIAN LABORATORY Urobilinogen Urine Normal Normal, 2.0 mg/dL 05/02/2024 5:55 PM SENIOR HEALTH PHYSICS TECHNICIAN [facility] Nitrite Urine Negative Negative 05/02/2024 5:55 PM SENIOR HEALTH PHYSICS TECHNICIAN [facility] Leukocyte Esterase Urine Negative Negative 05/02/2024 5:55 PM SENIOR HEALTH PHYSICS TECHNICIAN [facility] RBC Urine 0 <=2 /HPF 05/02/2024 5:55 PM SENIOR HEALTH PHYSICS TECHNICIAN [facility] WBC Urine 1 <=5 /HPF 05/02/2024 5:55 PM SENIOR HEALTH PHYSICS TECHNICIAN [facility] Squamous Epithelials Urine <1 <=1 /HPF 05/02/2024 5:55 PM SENIOR HEALTH PHYSICS TECHNICIAN [facility] Urine MID-STREAM URINE SPECIMEN / Unknown Non-blood Collection / Unknown 05/02/2024 5:30 PM SENIOR HEALTH PHYSICS TECHNICIAN 05/02/2024 5:37 PM SENIOR HEALTH PHYSICS TECHNICIAN Narrative [facility] - 05/02/2024 5:55 PM SENIOR HEALTH PHYSICS TECHNICIAN Urine Culture not indicated us Jimenez Dao MD LAB - URINE ORDERABLES Final Result [facility] Lab [address] Lab (1st floor, no room number) [place] [address] * Extra Red Top Tube (05/02/2024 5:23 PM SENIOR HEALTH PHYSICS TECHNICIAN) Hold Specimen [facility] 05/02/2024 6:31 PM SENIOR HEALTH PHYSICS TECHNICIAN [facility] Blood STRUCTURE OF RIGHT UPPER LIMB / Unknown Venipuncture / Unknown 05/02/2024 5:23 PM SENIOR HEALTH PHYSICS TECHNICIAN 05/02/2024 5:30 PM SENIOR HEALTH PHYSICS TECHNICIAN us Jimenez Dao MD LAB - BLOOD ORDERABLES Final Result [facility] Lab [address] Lab (1st floor, no room number) [place] [address] * Extra Blue Top Tube (05/02/2024 5:23 PM SENIOR HEALTH PHYSICS TECHNICIAN) Hold Specimen [facility] 05/02/2024 6:31 PM SENIOR HEALTH PHYSICS TECHNICIAN [facility] Blood STRUCTURE OF RIGHT UPPER LIMB / Unknown Venipuncture / Unknown 05/02/2024 5:23 PM SENIOR HEALTH PHYSICS TECHNICIAN 05/02/2024 5:30 PM SENIOR HEALTH PHYSICS TECHNICIAN us Jimenez Dao MD LAB - BLOOD ORDERABLES Final Result [facility] Acute Care Lab [address] Lab (1st floor, no room number) [place] [id number] [place] [address] * (ABNORMAL) Lactic acid whole blood with 1x repeat in 2 hr when >2 (05/02/2024 5:23 PM SENIOR HEALTH PHYSICS TECHNICIAN) [facility] Lactic Acid, Initial 2.1(H) 0.7 - 2.0 mmol/L 05/02/2024 5:33 PM SENIOR HEALTH PHYSICS TECHNICIAN [facility] Blood STRUCTURE OF RIGHT UPPER LIMB / Unknown Venipuncture / Unknown 05/02/2024 5:23 PM SENIOR HEALTH PHYSICS TECHNICIAN 05/02/2024 5:30 PM SENIOR HEALTH PHYSICS TECHNICIAN Jimenez Dao MD LAB - BLOOD ORDERABLES Final Result Performing Organization Address City/[facility]/ZIP Co de Phone Number LABORATORY [facility] Lab [address] Lab (1st floor, no room number) [address] * (ABNORMAL) RBC and Platelet Morphology (05/02/2024 5:23 PM SENIOR HEALTH PHYSICS TECHNICIAN) Only the most recent of2 resultswithin the time period is included. [facility] RBC Morphology Confirmed RBC Indices 05/02/2024 6:36 PM SENIOR HEALTH PHYSICS TECHNICIAN [facility] Platelet Assessment Automated Count Confirmed. Platelet morphology is normal. Automated Count Confirmed. Platelet morphology is normal. LIT 05/02/2024 6:36 PM SENIOR HEALTH PHYSICS TECHNICIAN [facility] Reactive Lymphocytes Present(A) None Seen LIT 05/02/2024 6:36 PM SENIOR HEALTH PHYSICS TECHNICIAN [facility] Blood STRUCTURE OF RIGHT UPPER LIMB / Unknown Venipuncture / Unknown 05/02/2024 5:23 PM SENIOR HEALTH PHYSICS TECHNICIAN 05/02/2024 5:30 PM SENIOR HEALTH PHYSICS TECHNICIAN Jimenez Dao MD LAB - BLOOD ORDERABLES Final Result LABORATORY [facility] Lab [address] Lab (1st floor, no room number) [place] [phone] * (ABNORMAL) CBC with platelets and differential (05/02/2024 5:23 PM SENIOR HEALTH PHYSICS TECHNICIAN) Only the most recent of2 resultswithin the time period is included. [facility] WBC Count 2.2(L) 4.0 - 11.0 10e3/uL 05/02/2024 6:36 PM SENIOR HEALTH PHYSICS TECHNICIAN [facility] RBC Count 2.41(L) 4.40 - 5.90 10e6/uL 05/02/2024 6:36 PM SENIOR HEALTH PHYSICS TECHNICIAN [facility] Hemoglobin 8.8(L) 13.3 - 17.7 g/dL 05/02/2024 6:36 PM SENIOR HEALTH PHYSICS TECHNICIAN [facility] Hematocrit 25.8(L) 40.0 - 53.0 % 05/02/2024 6:36 PM SENIOR HEALTH PHYSICS TECHNICIAN [facility] MCV 107(H) 78 - 100 fL 05/02/2024 6:36 PM SENIOR HEALTH PHYSICS TECHNICIAN [facility] MCH 36.5(H) 26.5 - 33.0 pg 05/02/2024 6:36 PM SENIOR HEALTH PHYSICS TECHNICIAN [facility] MCHC 34.1 31.5 - 36.5 g/dL 05/02/2024 6:36 PM SENIOR HEALTH PHYSICS TECHNICIAN [facility] RDW 15.3(H) 10.0 - 15.0 % 05/02/2024 6:36 PM SENIOR HEALTH PHYSICS TECHNICIAN [facility] Platelet Count 93(L) 150 - 450 10e3/uL 05/02/2024 6:36 PM SENIOR HEALTH PHYSICS TECHNICIAN [facility] % Neutrophils 19 % 05/02/2024 6:36 PM SENIOR HEALTH PHYSICS TECHNICIAN [facility] % Lymphocytes 46 % 05/02/2024 6:36 PM SENIOR HEALTH PHYSICS TECHNICIAN [facility] % Monocytes 29 % 05/02/2024 6:36 PM SENIOR HEALTH PHYSICS TECHNICIAN [facility] % Eosinophils 4 % 05/02/2024 6:36 PM SENIOR HEALTH PHYSICS TECHNICIAN [facility] % Basophils 1 % 05/02/2024 6:36 PM SENIOR HEALTH PHYSICS TECHNICIAN [facility] % Immature Granulocytes 1 % 05/02/2024 6:36 PM SENIOR HEALTH PHYSICS TECHNICIAN [facility] NRBCs per 100 WBC 0 <1 /100 024 6:36 PM SENIOR HEALTH PHYSICS TECHNICIAN [facility] Absolute Neutrophils 0.4(LL) 1.6 - 8.3 10e3/uL 05/02/2024 6:36 PM SENIOR HEALTH PHYSICS TECHNICIAN [facility] Comment:Abs neutrophils 0.7 05/02/24 10 am Absolute Lymphocytes 1.0 0.8 - 5.3 10e3/uL 05/02/2024 6:36 PM SENIOR HEALTH PHYSICS TECHNICIAN [facility] Absolute Monocytes 0.6 0.0 - 1.3 10e3/uL 05/02/2024 6:36 PM SENIOR HEALTH PHYSICS TECHNICIAN [facility] Absolute Eosinophils 0.1 0.0 - 0.7 10e3/uL 05/02/2024 6:36 PM SENIOR HEALTH PHYSICS TECHNICIAN [facility] Absolute Basophils 0.0 0.0 - 0.2 10e3/uL 05/02/2024 6:36 PM SENIOR HEALTH PHYSICS TECHNICIAN [facility] Absolute Immature Granulocytes 0.0 <=0.4 10e3/uL 05/02/2024 6:36 PM SENIOR HEALTH PHYSICS TECHNICIAN [facility] Absolute NRBCs 0.0 10e3/uL 05/02/2024 6:36 PM SENIOR HEALTH PHYSICS TECHNICIAN [facility] Blood STRUCTURE OF RIGHT UPPER LIMB / Unknown Venipuncture / Unknown 05/02/2024 5:23 PM SENIOR HEALTH PHYSICS TECHNICIAN 05/02/2024 5:30 PM SENIOR HEALTH PHYSICS TECHNICIAN Jimenez Dao MD LAB - BLOOD ORDERABLES Final Result RH LABORATORY [facility] Acute Care Lab [address] Lab (1st floor, no room number) [place] [address] * Adult Type and Screen (05/02/2024 5:23 PM SENIOR HEALTH PHYSICS TECHNICIAN) ABO/RH(D) B POS 05/02/2024 5:11 PM SENIOR HEALTH PHYSICS TECHNICIAN RH BLOOD BANK Antibody Screen Negative Negative 05/02/2024 5:11 PM SENIOR HEALTH PHYSICS TECHNICIAN RH BLOOD BANK SPECIMEN EXPIRATION DATE [id number] 05/02/2024 5:11 PM SENIOR HEALTH PHYSICS TECHNICIAN RH BLOOD BANK Blood STRUCTURE OF RIGHT UPPER LIMB / Unknown Venipuncture / Unknown 05/02/2024 5:23 PM SENIOR HEALTH PHYSICS TECHNICIAN 05/02/2024 5:30 PM SENIOR HEALTH PHYSICS TECHNICIAN Jimenez Dao MD LAB - BLOOD BANK TEST ORDER Final Result RH BLOOD BANK [address] [place] [address] * (ABNORMAL) Comprehensive metabolic panel (05/02/2024 5:23 PM SENIOR HEALTH PHYSICS TECHNICIAN) Sodium 142 135 - 145 mmol/L 05/02/2024 5:56 PM SENIOR HEALTH PHYSICS TECHNICIAN [facility] Potassium 4.0 3.4 - 5.3 mmol/L 05/02/2024 5:56 PM SENIOR HEALTH PHYSICS TECHNICIAN [facility] Carbon Dioxide (CO2) 21(L) 22 - 29 mmol/L 05/02/2024 5:56 PM SENIOR HEALTH PHYSICS TECHNICIAN [facility] Anion Gap 12 7 - 15 mmol/L 05/02/2024 5:56 PM SENIOR HEALTH PHYSICS TECHNICIAN [facility] Urea Nitrogen 31.7(H) 8.0 - 23.0 mg/dL 05/02/2024 5:56 PM SENIOR HEALTH PHYSICS TECHNICIAN [facility] Creatinine 1.63(H) 0.67 - 1.17 mg/dL 05/02/2024 5:56 PM SENIOR HEALTH PHYSICS TECHNICIAN [facility] GFR Estimate 41(L) >60 mL/min/1.7 3m2 05/02/2024 5:56 PM SENIOR HEALTH PHYSICS TECHNICIAN [facility] Comment:eGFR calculated usin 2020 CKD-EPI equation. Calcium 8.5(L) 8.8 - 10.4 mg/dL 05/02/2024 5:56 PM SENIOR HEALTH PHYSICS TECHNICIAN [facility] Comment:Reference intervals for this test were updated on 12/29/2023 to reflect our healthy population more accurately. There may be differences in the flagging of prior results with similar values performed with this method. Those prior results can be interpreted in the context of the updated reference intervals. Chloride 109(H) 98 - 107 mmol/L 05/02/2024 5:56 PM SENIOR HEALTH PHYSICS TECHNICIAN [facility] Glucose 110(H) 70 - 99 mg/dL 05/02/2024 5:56 PM SENIOR HEALTH PHYSICS TECHNICIAN [facility] Alkaline Phosphatase 130 40 - 150 U/L 05/02/2024 5:56 PM SENIOR HEALTH PHYSICS TECHNICIAN [facility] AST 17 0 - 45 U/L 05/02/2024 5:56 PM SENIOR HEALTH PHYSICS TECHNICIAN [facility] ALT 11 0 - 70 U/L 05/02/2024 5:56 PM SENIOR HEALTH PHYSICS TECHNICIAN [facility] Protein Total 6.1(L) 6.4 - 8.3 g/dL 05/02/2024 5:56 PM SENIOR HEALTH PHYSICS TECHNICIAN [facility] Albumin 4.1 3.5 - 5.2 g/dL 05/02/2024 5:56 PM SENIOR HEALTH PHYSICS TECHNICIAN [facility] Bilirubin Total 0.4 <=1.2 mg/dL 05/02/2024 5:56 PM SENIOR HEALTH PHYSICS TECHNICIAN [facility] Blood STRUCTURE OF RIGHT UPPER LIMB / Unknown Venipuncture / Unknown 05/02/2024 5:23 PM SENIOR HEALTH PHYSICS TECHNICIAN 05/02/2024 5:30 PM SENIOR HEALTH PHYSICS TECHNICIAN Jimenez Dao MD LAB - BLOOD ORDERABLES Final Result LABORATORY [facility] Acute Care Lab [address] [facility] Lab (1st floor, no room number) [place] [address], [facility] * (ABNORMAL) Basic metabolic panel (Ca, Cl, CO2, Creat, Gluc, K, Na, BUN) (05/02/2024 10:02 AM SENIOR HEALTH PHYSICS TECHNICIAN) [facility] Sodium 141 135 - 145 mmol/L 05/02/2024 4:50 PM SENIOR HEALTH PHYSICS TECHNICIAN [facility] Potassium 4.4 3.4 - 5.3 mmol/L 05/02/2024 4:50 PM SENIOR HEALTH PHYSICS TECHNICIAN [facility] Chloride 108(H) 98 - 107 mmol/L 05/02/2024 4:50 PM SENIOR HEALTH PHYSICS TECHNICIAN [facility] Carbon Dioxide (CO2) 21(L) 22 - 29 mmol/L 05/02/2024 4:50 PM SENIOR HEALTH PHYSICS TECHNICIAN [facility] Anion Gap 12 7 - 15 mmol/L 05/02/2024 4:50 PM SENIOR HEALTH PHYSICS TECHNICIAN [facility] Urea Nitrogen 28.8(H) 8.0 - 23.0 mg/dL 05/02/2024 4:50 PM SENIOR HEALTH PHYSICS TECHNICIAN [facility] Creatinine 1.50(H) 0.67 - 1.17 mg/dL 05/02/2024 4:50 PM SENIOR HEALTH PHYSICS TECHNICIAN [facility] GFR Estimate 46(L) >60 mL/min/1.7 3m2 05/02/2024 4:50 PM SENIOR HEALTH PHYSICS TECHNICIAN [facility] Comment:eGFR calculated usin 2020 CKD-EPI equation. Calcium 9.3 8.8 - 10.4 mg/dL 05/02/2024 4:50 PM SENIOR HEALTH PHYSICS TECHNICIAN [facility] Comment:Reference intervals for this test were updated on 12/29/2023 to reflect our healthy population more accurately. There may be differences in the flagging of prior results with similar values performed with this method. Those prior results can be interpreted in the context of the updated reference intervals. Glucose 105(H) 70 - 99 mg/dL 05/02/2024 4:50 PM SENIOR HEALTH PHYSICS TECHNICIAN [facility] Blood BLOOD SPECIMEN / Unknown Venipuncture / Unknown 05/02/2024 10:02 AM SENIOR HEALTH PHYSICS TECHNICIAN 05/02/2024 10:02 AM SENIOR HEALTH PHYSICS TECHNICIAN Rosa Prieto [place] [employer] LAB - BLOOD ORDERABLES Fin al Result Performing Organization Address City/[facility]/ZIP Co de Phone Number U LABORATORY [facility] [address] [facility], Room [address] [address] * (ABNORMAL) Methylmalonic Acid (03/29/2024 9:21 AM CDT) Methylmalonic Acid 0.41(H) 0.00 - 0.40 umol/L 03/31/2024 1:18 PM CDT [facility] Comment: INTERPRETIVE INFORMATION: Slight elevation 0.41-0.99 umol/L is consistent with mild vitamin B12 deficiency, renal insufficiency, or intravascular volume contraction. Moderate elevation 1.00-9.99 umol/L is consistent with mild vitamin B12 deficiency. Massive elevation 10.00 umol/L or greater is consistent with significant vitamin B12 deficiency or with inborn errors of metabolism. Blood BLOOD SPECIMEN / Unknown Venipuncture / Unknown 03/29/2024 9:21 AM CDT 03/29/2024 9:28 AM CDT Narrative [facility] - 03/31/2024 1:18 PM CDT This test was developed and its performance characteristics determined by the [facility], [facility]. It has not been cleared or approved by the FDA. The laboratory is regulated under CLIA as qualified to perform high-complexity testing. This test is used for clinical purposes. It should not be regarded as investigational or for research. Rosa Moreau APRN G[employer] WORKER LAB - BLOOD ORDERABLES Fin al Result [facility] Special [facility] [address] [facility], [address] [address] * Folate (03/29/2024 9:21 AM CDT) Folic Acid 14.2 4.6 - 34.8 ng/mL 03/29/2024 2:31 PM CDT U LABORATORY Blood BLOOD SPECIMEN / Unknown Venipuncture / Unknown 03/29/2024 9:21 AM CDT 03/29/2024 9:28 AM CDT us oRsa Moreau [facility] LAB - BLOOD ORDERABLES Pritesh al Result [facility] [address] [facility], [address] [place] [address] * (ABNORMAL) Albumin Random Urine Quantitative with Creat Ratio (03/09/2024 11:01 AM CDT) Creatinine Urine mg/dL 87.6 mg/dL 03/09/2024 10:26 PM CDT [facility] Comment:The reference ranges have not been established in urine creatinine. The results should be integrated into the clinical context for interpretation. Albumin Urine mg/L 48.5 mg/L 2023 10:26 PM CDT [facility] Comment:The reference ranges have not been established in urine albumin. The results should be integrated into the clinical context for interpretation. Albumin Urine mg/g Cr 55.37(H) 0.00 - 17.00 mg/g Cr 03/09/2024 10:26 PM CDT [facility] Comment: Microalbuminuria is defined as an albumin:creatinine ratio of 17 to 299 for males and 25 to 299 for females. A ratio of albumin:creatinine of 300 or higher is indicative of overt proteinuria. Due to biologic variability, positive results should be confirmed by a second, first-morning random or 24-hour timed urine specimen. If there is discrepancy, a third specimen is recommended. When 2 out of 3 results are in the microalbuminuria range, this is evidence for incipient nephropathy and warrants increased efforts at glucose control, blood pressure control, and institution of therapy with an [id number]-nytnuq (SHIRA) inhibitor (if the patient can tolerate it). Urine URINE SPECIMEN OBTAINED BY CLEAN CATCH PROCEDURE / Unknown Non-blood Collection / Unknown 03/09/2024 11:01 AM CDT 03/09/2024 11:12 AM CDT us Trang Michele MD LAB - URINE ORDERABLES Final Res ult [facility] [address] [facility], [address] [place] [address], [facility] * HEMOGLOBIN A1C (01/28/2024 3:25 PM CDT) Hemoglobin A1C 5.6 0.0 - 5.6 % 01/29/2024 10:53 AM CDT [facility] Comment: Normal <5.7% Prediabetes 5.7-6.4% Diabetes 6.5% or higher Note: Adopted from ADA consensus guidelines. Blood BLOOD SPECIMEN / Unknown Venipuncture / Unknown 01/28/2024 3:25 PM CDT 01/28/2024 3:25 PM CDT Rosa Moreau APRN GAS WORKER LAB - BLOOD ORDERABLES Fin al Result CR LABORATORY [facility] [address] [facility] Lab (no room number, 1st floor of clinic) [place] [address], [facility] * (ABNORMAL) Lipid Profile (Chol, Trig, HDL, LDL calc) (10/18/2015 9:01 AM CDT) Cholesterol 197 <200 mg/dL [facility] Triglycerides 108 <150 mg/dL [facility] Comment:Fasting specimen HDL Cholesterol 51 >39 mg/dL [facility] LDL Cholesterol Calculated 124(H) <100 mg/dL [facility] Comment: Above desirable: 100-129 mg/dl Borderline High: 130-159 mg/dL High: 160-189 mg/dL Very high: >189 mg/dl Non HDL Cholesterol 146(H) <130 mg/dL [facility] Comment: Above Desirable: 130-159 mg/dl Borderline high: 160-189 mg/dl High: 190-219 mg/dl Very high: >219 mg/dl Blood specimen (specimen) 10/18/2015 9:01 AM CDT 10/18/2015 9:02 AM CDT us Jimenez Parks MD LAB - BLOOD ORDERABLES Final Re sult [facility] [address] [place] [address] from Last 3 Months or Most Recently Relevant to Health Maintenance Insurance MEDICARE [facility] MEDICARE SUPPLEMENT MEDICARE [place] MEDICARE SUPPLEMENT Advance Directives For more information, please contact: [phone] * Full Code (Latest Code Status on File) Date Activated Date Inactivated Comments 01/20/2024 6:15 AM 01/23/2024 2:10 PM All basic and advanced life-sustaining interventions are performed as appropriate Question Answer Comments Code status determined by: Discussion with patie nt/ legal decision maker Care Teams Pet Care Associate Relationship Specialty Start Date End Date Rosa Moreau APRN [employer] [address] [place] [address] PCP - General Nurse Practitioner Primary Care 12/02/23 Phil Patel MD [address] [address] Assigned Surgical Provider 05/26/21 [place] [address] [address] Assigned Musculoskeletal Provider 10/11/22 Phil Patel MD [address] [address] Urology 03/04/23 Dee Weiss MD [address] [place] [address] Nephrology 10/30/23 Trang Michele MD [address] [place] [address] Assigned Nephrology Provider 04/06/24 Rosa Moreau APRN [facility] [address] [place] [address] Assigned PCP 05/07/24
--- OUTSIDE RECORDS SUMMARY | 2024-06-17 07:26 | XMS_ITS | Encounter Summary ---
Author Organization [facility] Address [address] [place] [address] Care Team Providers Care Fry Cook Name Role Phone Jimenez Parks MD Unavailable [phone] Phil Patel MD Unavailable [phone] Moe Amezcua MD Unavailable Phil Patel MD Unavailable Dee Weiss MD Unavailable [phone] Rosa Moreau APRN [facility] Primary Care Provider [phone] Trang Michele MD Unavailable Reason for Visit * Reason Comments Abnormal Labs Encounter Details Date Type Department Care Team (Late st Contact Info) Description 05/02/2024 5:27 PM PROPERTY SITE MANAGER - 05/02/2024 9:10 PM [facility] Emergency [facility] Emergency Dept [address] [place] [address] Jimenez Dao MD [facility] [address] [facility] [address] [place] [address] Pancytopenia (H) Discharge Disposition: Home or Self Care Social History Tobacco Use Types Packs/Day Years [...] re latives? Once a week 05/02/2024 Attends Congregational Services Not on file 05/02 Active Member of Clubs or Organizations Not on f ile 05/02/2024 Attends Club or Organization Meetings Not on elaine e 05/02/2024 Marital Status Not on file 05/02/2024 PHQ-2 Answer Date Recorded PHQ-2 Score 0 05/02/2024 [facility] of Occupat ional Health - Occupational Stress [...] Answer Date Recorded Do you have housing? (Housin g is defined as stable permanent housing and does not include staying ouside in a car, in a tent, in an abandoned building, in an overnight senior living, or couch-surfing.) Yes 05/02/2024 Are you worried [...] AM CDT Legal Sex Male 3:31 AM PROPERTY SITE MANAGER Gender Identity Male 02/13/2021 11:50 AM CDT Sexual Orientation Bisexual 02/13/2021 11 :52 AM CDT documented as of this encounter Last Filed Vital Signs Vital Sign Reading Time Taken Comments Blood Pressure 140/99 05/02/2024 9:00 PM PROPERTY SITE MANAGER Pulse 66 05/02/2024 9:00 PM PROPERTY SITE MANAGER Temperature 36.8 C (98.2 F) 05/02/2024 5:08 PM PROPERTY SITE MANAGER Respiratory Rate 20 05/02/2024 5:08 PM PROPERTY SITE MANAGER Oxygen Saturation 95% 05/02/2024 9:00 PM PROPERTY SITE MANAGER Inhaled Oxygen Concentration - - Weight 95.7 kg (210 lb 15.7 oz) 05/02/2024 5:08 PM PROPERTY SITE MANAGER Height 182.9 cm (6') 05/02/2024 5:08 PM PROPERTY SITE MANAGER Body Mass Index 28.61 05/02/2024 5:08 PM PROPERTY SITE MANAGER documented in this encounter Discharge Instructions * Discharge Instructions* Jimenez Dao MD - 05/02/2024 8:50 PM PROPERTY SITE MANAGER As we discussed, a new patient coordinator from [place] [facility] should be contacting you tomorrow to arrange an appointment with a unleavened dough mixer. You need further testing directed by them, including a bone marrow biopsy as we discussed. Your white blood cell count, hemoglobin, and platelet counts are all low. Due to your low neutrophil count, you are at risk for getting very sick if you develop an infection. Should you develop a fever, you should return to the emergency department, at that point, you would require admission. ERTY SITE MANAGER * Attachments The following attachments cannot be sent through Care Everywhere. * Neutropenia (Irish) documented in this encounter Medications at Time of Discharge EPINEPHrine (ANY BX GENERIC EQUIV) 0.3 MG/0.3ML injection 2-pack Inject 0.3 mLs into the muscle as needed for anaphylaxis finasteride (PROSCAR) 5 MG tablet Take 5 mg by mouth at bedtime fluticasone (FLONASE) 50 MCG/ACT nasal sprayIndications:S easonal allergic rhinitis, unspecified trigger [place] 1 spray into both nostrils daily. 18.2 g 3 05/02/2024 losartan (COZAAR) 25 MG tabletIndications: Essential hypertension Take 1 tablet (25 mg) by mouth daily. 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 10 tablet 05/02/2024 4 documented as of this encounter ED Notes * Jimenez Dao MD - 05/02/2024 6:12 PM CST Emergency Department Note History of Present Illness Chief Complaint Abnormal Labs HPI Solis Cardoso is a 83 year old male with history of hypertension and cancer who presents due to abnormal labs from routine physical appointment today. He had low hemoglobin and a low white blood cellcount. Reports he has felt more fatigued and unwell recently. Denies fever. Reports feeling similarto when he had sepsis following an upper endoscopy in January. Reports history of bad sinuses that make him cough a lot. Reports history of prostate cancer and melanoma to his nose and right shoulder.He is not currently seeing a oncologist. He denies history of low blood counts. 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[place] Rectal hemorrhage Renal cyst Secondary hyperparathyroidism of renal origin Sepsis CKD stage 3 SVT Tubular adenoma of colon Medications Adoxa Epi Proscar Flonase Cozaar Nasonex Protonix Surgical History Biopsy Cholecystectomy laparoscopic Colonoscopy Cystoscopy Endoscopic retrograde cholangiopancreatography Esophagoscopy, gastroscopy, duodenoscopy, combined Eye surgery Anal fissula Phacoemulsification clear cornea with standard IOL implant, endoscopic cyclophotocoagulation, combined x2 Prostate surgery Esophageal dilation x6 Basal cell CA L face excision and reconstruction Colonoscopy through stoma Physical Exam Patient Vitals for the past 24 hrs: BP Temp Temp src Pulse Resp SpO2 Height Weight 05/02/24 2100 (!) 140/99 -- -- 66 -- 95 % -- -- 05/02/242014 131/74 -- -- 62 -- 97 % -- -- 05/02/241999 137/79 -- -- 63 -- 96 % -- -- 05/02/24 194 134/63 -- -- 64 -- 98 % -- -- 05/02/24 1930 (!) 144/82 -- -- 67 -- 99 % -- -- 05/02/24 1915 130/62 -- -- 65 -- 98 % -- -- 05/02/24 1900 (!) 140/70 -- -- 65 -- 98 % -- -- 05/02/24 1845 (!) 148/61 -- -- 66 -- 97 % -- -- 05/02/24 1830 133/60 -- -- 63 -- 97 % -- -- 05/02/24 1815 128/63 -- -- 67 -- 96 % -- -- 05/02/24 1800 126/64 -- -- 68 -- 97 % -- -- 05/02/24 1746 129/68 -- -- 65 -- 97 % -- -- 05/02/24 1709 -- -- -- -- -- 98 % -- -- 05/02/24 1708 (!) 153/69 98.2 ??F (36.8 ??C) Temporal 71 20 -- 1.829 m (6') 95.7 kg (210 lb 15.7 oz) Physical Exam General: Patient is alert and cooperative. HENT: No nasal congestion or drainage. Normal oropharynx. Moist oral mucosa. Eyes: EOMI. Normal conjunctiva. Neck: Normal range of motion and appearance. Cardiovascular: Normal rate, regular rhythm and normal heart sounds. Pulmonary/Chest: Effort normal; clear. Abdominal: Soft. No distension or tenderness. Musculoskeletal: Normal range of motion. No edema or tenderness. Neurological: oriented, normal strength, sensation, and coordination. Skin: Warm and dry. No rash or bruising. Psychiatric: Normal mood and affect. Normal behavior and judgement. Diagnostics Lab Results Labs Ordered and Resulted from Time of ED Arrival to Time of ED Departure COMPREHENSIVE METABOLIC PANEL - Abnormal Result Value Sodium 142 Potassium 4.0 Carbon Dioxide (CO2) 21 (*) Anion Gap 12 Urea Nitrogen 31.7 (*) Creatinine 1.63 (*) GFR Estimate 41 (*) Calcium 8.5 (*) Chloride 109 (*) Glucose 110 (*) Alkaline Phosphatase 130 AST 17 ALT 11 Protein Total 6.1 (*) Albumin 4.1 Bilirubin Total 0.4 LACTIC ACID WHOLE BLOOD WITH 1X REPEAT IN 2 HR WHEN >2 - Abnormal Lactic Acid, Initial 2.1 (*) CBC WITH PLATELETS AND DIFFERENTIAL - Abnormal WBC Count 2.2 (*) RBC Count 2.41 (*) Hemoglobin 8.8 (*) Hematocrit 25.8 (*) MCV 107 (*) MCH 36.5 (*) MCHC 34.1 RDW 15.3 (*) Platelet Count 93 (*) % Neutrophils 19 % Lymphocytes 46 % Monocytes 29 % Eosinophils 4 % Basophils 1 % Immature Granulocytes 1 NRBCs per 100 WBC 0 Absolute Neutrophils 0.4 (*) Absolute Lymphocytes 1.0 Absolute Monocytes 0.6 Absolute Eosinophils 0.1 Absolute Basophils 0.0 Absolute Immature Granulocytes 0.0 Absolute NRBCs 0.0 RBC AND PLATELET MORPHOLOGY - Abnormal RBC Morphology Confirmed RBC Indices Platelet Assessment Value: Automated Count Confirmed. Platelet morphology is normal. Reactive Lymphocytes Present (*) ROUTINE UA WITH MICROSCOPIC REFLEX TO CULTURE - Normal Color Urine Light Yellow Appearance Urine Clear Glucose Urine Negative Bilirubin Urine Negative Ketones Urine Negative Specific [place] Urine 1.014 Blood Urine Negative pH Urine 5.0 Protein Albumin Urine Negative Urobilinogen Urine Normal Nitrite Urine Negative Leukocyte Esterase Urine Negative RBC Urine 0 WBC Urine 1 Squamous Epithelials Urine <1 LACTIC ACID WHOLE BLOOD - Normal Lactic Acid 1.8 TYPE AND SCREEN, ADULT ABO/RH(D) B POS Antibody Screen Negative SPECIMEN EXPIRATION DATE [id number] BLOOD CULTURE ABO/RH TYPE AND SCREEN Imaging No orders to display ECG results from 05/02/24 EKG 12 lead Value Systolic Blood Pressure Diastolic Blood Pressure Ventricular Rate 73 Atrial Rate 73 NM Interval 178 QRS Duration 156 QT 452 QTc 497 P Guinda 67 R AXIS 61 T Guinda -83 Interpretation ECG Sinus rhythm Left bundle branch block Abnormal ECG When compared with ECG of 20-Jan-2024 03:40, T wave inversion more evident in Inferior leads Independent Interpretation None ED Course Medications Administered Medications - No data to display Procedures Procedures Discussion of Management None ED Course ED Course as of 05/02/242299 Mon May 02, 20241815 I obtained history and examined the patient as noted above [address] susanne Pacheco, hematology/oncology regarding care for the patient 2039 I rechecked the patient and explained findings. 2254 Comprehensive metabolic panel(!) Additional Documentation None Medical Decision Making / Diagnosis MIPS None MDM Solis Cardoso is a 83 year old male referred from clinic after routine labs demonstrated pancytopenia. Has been fatigued, but no recent febrile illness. Normal vitals and exam. Well appearing. Wbc 2.2, hgb 8.8, plt 93, absolute neutrophil 0.4. Initial lactic 2.1, repeat 1.8. UA neg, Hx CKD, cmp shows no significant acute change. Heme/onc consulted, new patient coordinator will reach out to him tomorrow to arrange for early outpatient appointment, will require bone marrow biopsy. This was discussed with patient, as was the option for admission for inpatient hem/onc consult; patient prefers to go home, was advised to quarantine, and return if he develops a fever or any other new symptoms of concern. DDx includes myelodysplasia, malignancy. Disposition The patient was discharged. Diagnosis ICD-10-CM 1. Pancytopenia (H) D61.818 Discharge Medications Discharge Medication List as of 05/02/2024 9:03 PM Scribe Disclosure: Ammy, Rodrigo Guerrero, am serving as a scribe at 6:12 PM on 05/02/2024 to document services personally performed by Jimenez Dao MD based on my observations and the provider's statements to me. Jimenez Dao MD 05/02/242300 ERTY SITE MANAGER * Dana Ruff RN - 05/02/2024 5:05 PM CST Pt arrives from clinic for abnormal labs, WBC 1.9, Hgb 9 and Plt 95. He reports hospitalization in January from sepsis. Hx stage 3 CKD, anemia. Denies new bleeding. He reports feeling more tired than normal. Got his covid and flu vaccinations today. AVSS on RA. ERTY SITE MANAGER documented in this encounter Plan of Treatment Upcoming Encounters Date Type Department Care Team (Late st Contact Info) Description 03/15/2025 11:30 AM CDT Office Visit [address] [address] Trang Michele MD [address] [place] [id number] documented as of this encounter Procedures Procedure Name Priority Date/Time Associated Diagnosis Comments LACTIC ACID WHOLE BLOOD STAT 05/02/2024 7:07 PM PROPERTY SITE MANAGER BLOOD CULTURE STAT 05/02/2024 7:07 PM PROPERTY SITE MANAGER EKG 12-LEAD, TRACING ONLY STAT 05/02/2024 5:43 PM PROPERTY SITE MANAGER ROUTINE UA WITH MICROSCOPIC REFLEX TO CULTURE STAT 05/02/2024 5:30 PM PROPERTY SITE MANAGER EXTRA TUBE STAT 05/02/2024 5:23 PM PROPERTY SITE MANAGER EXTRA RED TOP TUBE STAT 05/02/2024 5: 23 PM PROPERTY SITE MANAGER EXTRA BLUE TOP TUBE STAT 05/02/2024 5 :23 PM PROPERTY SITE MANAGER LACTIC ACID WHOLE BLOOD WITH 1X REPEAT IN 2 HR WHEN >2 STAT 05/02/2024 5:23 PM PROPERTY SITE MANAGER RBC AND PLATELET MORPHOLOGY STAT 05/02/2024 5:23 PM PROPERTY SITE MANAGER CBC WITH PLATELETS AND DIFFERENTIAL STAT 05/02/2024 5:23 PM PROPERTY SITE MANAGER TYPE AND SCREEN, ADULT STAT 4 5:23 PM PROPERTY SITE MANAGER CBC WITH PLATELETS & DIFFERENTIAL STAT 05/02/2024 5:23 PM PROPERTY SITE MANAGER COMPREHENSIVE METABOLIC PANEL STAT 05/02/2024 5:23 PM PROPERTY SITE MANAGER ABO/RH TYPE AND SCREEN STAT 4 5:23 PM PROPERTY SITE MANAGER documented in this encounter Results * Blood Culture Arm, Right (05/02/2024 7:07 PM PROPERTY SITE MANAGER) Culture No Growth 05/07/2024 11:16 PM PROPERTY SITE MANAGER [facility] Blood STRUCTURE OF RIGHT UPPER LIMB / Unknown Venipuncture / Unknown 05/02/2024 7:07 PM PROPERTY SITE MANAGER 05/02/2024 7:11 PM PROPERTY SITE MANAGER Result Lyla Dao MD LAB - MICRO GENERAL ORDERABL ES Final Result [facility] Inf. Diseases Diag. Lab [address] [facility], [address] [place] [address] * Lactic acid whole blood (05/02/2024 7:07 PM PROPERTY SITE MANAGER) Lactic Acid 1.8 0.7 - 2.0 mmol/L 05/02/2024 7:13 PM PROPERTY SITE MANAGER [facility] Blood STRUCTURE OF RIGHT UPPER LIMB / Unknown Venipuncture / Unknown 05/02/2024 7:07 PM PROPERTY SITE MANAGER 05/02/2024 7:11 PM PROPERTY SITE MANAGER us Jimenze Dao MD LAB - BLOOD ORDERABLES Final Result [facility] [address] Lab (1st floor, no room number) [place] [address], [facility] * EKG 12 lead (05/02/2024 5:43 PM PROPERTY SITE MANAGER) Systolic Blood Pressure mmHg RADIOLOGY RESULTS Diastolic Blood Pressure mmHg RADIOLOGY RESULTS Ventricular Rate 73 BPM RAD IOLOGY RESULTS Atrial Rate 73 BPM RADIOLOG Y RESULTS NM Interval 178 ms RADIOLOG Y RESULTS QRS Duration 156 ms RADIOLO GY RESULTS QT 452 ms RADIOLOGY RESULTS QTc 497 ms RADIOLOGY RESULTS P Guinda 67 degrees RADIOLOGY RESULTS R AXIS 61 degrees RADIOLOGY RESULTS T Guinda -83 degrees RADIOLOGY RESULTS Interpretation ECG Sinus rhythm Left bundle branch block Abnormal ECG When compared with ECG of 20-Jan-2024 03:40, T wave inversion more evident in Inferior leads Confirmed by - EMERGENCY ROOM, PHYSICIAN ([id number]), makeup editor JUVENAL TOLLIVER ([id number]) on 05/03/2024 6:46:37 AM RADIOLOGY RESULTS 05/02/2024 5:43 PM PROPERTY SITE MANAGER 05/03/2024 6:46 AM PROPERTY SITE MANAGER us Jimenez Dao MD ECG ORDERABLES Edited Resul t - Final RADIOLOGY RESULTS * UA with Microscopic reflex to Culture (05/02/2024 5:30 PM PROPERTY SITE MANAGER) Color Urine Light Yellow Colorless, Straw, Light Yellow, Yellow 05/02/2024 5:55 PM PROPERTY SITE MANAGER [facility] Appearance Urine Clear Clear 05/02/20 24 5:55 PM PROPERTY SITE MANAGER [facility] Glucose Urine Negative Negative mg/dL 05/02/2024 5:55 PM PROPERTY SITE MANAGER [facility] Bilirubin Urine Negative Negative 5:55 PM PROPERTY SITE MANAGER [facility] Ketones Urine Negative Negative mg/dL 05/02/2024 5:55 PM PROPERTY SITE MANAGER LABORATORY Specific [place] Urine 1.014 1.003 - 1.035 05/02/2024 5:55 PM PROPERTY SITE MANAGER [facility] Blood Urine Negative Negative 05/02/2024 5:55 PM PROPERTY SITE MANAGER [facility] pH Urine 5.0 5.0 - 7.0 05/02/2024 5:55 PM PROPERTY SITE MANAGER [facility] Protein Albumin Urine Negative Negative mg/dL 05/02/2024 5:55 PM PROPERTY SITE MANAGER [facility] Urobilinogen Urine Normal Normal, 2.0 mg/dL 05/02/2024 5:55 PM PROPERTY SITE MANAGER [facility] Nitrite Urine Negative Negative 05/02/2024 5:55 PM PROPERTY SITE MANAGER [facility] Leukocyte Esterase Urine Negative Negative 05/02/2024 5:55 PM PROPERTY SITE MANAGER [facility] RBC Urine 0 <=2 /HPF 05/02/2024 5:55 PM PROPERTY SITE MANAGER [facility] WBC Urine 1 <=5 /HPF 05/02/2024 5:55 PM PROPERTY SITE MANAGER [facility] Squamous Epithelials Urine <1 <=1 /HPF 05/02/2024 5:55 PM PROPERTY SITE MANAGER [facility] Urine MID-STREAM URINE SPECIMEN / Unknown Non-blood Collection / Unknown 05/02/2024 5:30 PM PROPERTY SITE MANAGER 05/02/2024 5:37 PM PROPERTY SITE MANAGER Narrative [facility] - 05/02/2024 5:55 PM PROPERTY SITE MANAGER Urine Culture not indicated Jimenez Dao MD LAB - URINE ORDERABLES Final Result [facility] Lab [address] Lab (1st floor, no room number) [place] [address] * (ABNORMAL) RBC and Platelet Morphology (05/02/2024 5:23 PM PROPERTY SITE MANAGER) RBC Morphology Confirmed RBC Indices 05/02/2024 6:36 PM PROPERTY SITE MANAGER [facility] Platelet Assessment Automated Count Confirmed. Platelet morphology is normal. Automated Count Confirmed. Platelet morphology is normal. LIT 05/02/2024 6:36 PM PROPERTY SITE MANAGER [facility] Reactive Lymphocytes Present(A) None Seen LIT 05/02/2024 6:36 PM PROPERTY SITE MANAGER [facility] Blood STRUCTURE OF RIGHT UPPER LIMB / Unknown Venipuncture / Unknown 05/02/2024 5:23 PM PROPERTY SITE MANAGER 05/02/2024 5:30 PM PROPERTY SITE MANAGER Jimenez Dao MD LAB - BLOOD ORDERABLES Final Result LABORATORY [facility] Lab [address] Lab (1st floor, no room number) [place] [address] * Adult Type and Screen (05/02/2024 5:23 PM PROPERTY SITE MANAGER) ABO/RH(D) B POS 05/02/2024 5:11 PM PROPERTY SITE MANAGER [facility] Antibody Screen Negative Negative 05/02/2024 5:11 PM PROPERTY SITE MANAGER [facility] SPECIMEN EXPIRATION DATE [id number] 05/02/2024 5:11 PM PROPERTY SITE MANAGER [facility] Blood STRUCTURE OF RIGHT UPPER LIMB / Unknown Venipuncture / Unknown 05/02/2024 5:23 PM PROPERTY SITE MANAGER 05/02/2024 5:30 PM PROPERTY SITE MANAGER us Jimenez Dao MD LAB - BLOOD BANK TEST ORDER Final Result BLOOD BANK [address] [place] [address] * Extra Red Top Tube (05/02/2024 5:23 PM PROPERTY SITE MANAGER) Hold Specimen [facility] 05/02/2024 6:31 PM PROPERTY SITE MANAGER [facility] Blood STRUCTURE OF RIGHT UPPER LIMB / Unknown Venipuncture / Unknown 05/02/2024 5:23 PM PROPERTY SITE MANAGER 05/02/2024 5:30 PM PROPERTY SITE MANAGER us Jimenez Dao MD LAB - BLOOD ORDERABLES Final Result LABORATORY [facility] [address] Lab (1st floor, no room number) [place] [address] * Extra Blue Top Tube (05/02/2024 5:23 PM PROPERTY SITE MANAGER) Hold Specimen [facility] 05/02/2024 6:31 PM PROPERTY SITE MANAGER [facility] Blood STRUCTURE OF RIGHT UPPER LIMB / Unknown Venipuncture / Unknown 05/02/2024 5:23 PM PROPERTY SITE MANAGER 05/02/2024 5:30 PM PROPERTY SITE MANAGER us Jimenez Dao MD LAB - BLOOD ORDERABLES Final Result [facility] [address] Lab (1st floor, no room number) [place] [address], [facility] * (ABNORMAL) CBC with platelets and differential (05/02/2024 5:23 PM PROPERTY SITE MANAGER) WBC Count 2.2(L) 4.0 - 11.0 10e3/uL 05/02/2024 6:36 PM PROPERTY SITE MANAGER [facility] RBC Count 2.41(L) 4.40 - 5.90 10e6/uL 05/02/2024 6:36 PM PROPERTY SITE MANAGER [facility] Hemoglobin 8.8(L) 13.3 - 17.7 g/dL 05/02/2024 6:36 PM PROPERTY SITE MANAGER [facility] Hematocrit 25.8(L) 40.0 - 53.0 % 05/02/2024 6:36 PM PROPERTY SITE MANAGER [facility] MCV 107(H) 78 - 100 fL 05/02/2024 6:36 PM PROPERTY SITE MANAGER [facility] MCH 36.5(H) 26.5 - 33.0 pg 05/02/2024 6:36 PM PROPERTY SITE MANAGER [facility] MCHC 34.1 31.5 - 36.5 g/dL 05/02/2024 6:36 PM PROPERTY SITE MANAGER [facility] RDW 15.3(H) 10.0 - 15.0 % 05/02/2024 6:36 PM PROPERTY SITE MANAGER [facility] Platelet Count 93(L) 150 - 450 10e3/uL 05/02/2024 6:36 PM PROPERTY SITE MANAGER [facility] % Neutrophils 19 % 05/02/2024 6:36 PM PROPERTY SITE MANAGER [facility] % Lymphocytes 46 % 05/02/2024 6:36 PM PROPERTY SITE MANAGER [facility] % Monocytes 29 % 05/02/2024 6:36 PM PROPERTY SITE MANAGER [facility] % Eosinophils 4 % 05/02/2024 6:36 PM PROPERTY SITE MANAGER [facility] % Basophils 1 % 05/02/2024 6:36 PM PROPERTY SITE MANAGER [facility] % Immature Granulocytes 1 % 05/02/2024 6:36 PM PROPERTY SITE MANAGER [facility] NRBCs per 100 WBC 0 <1 /100 024 6:36 PM PROPERTY SITE MANAGER [facility] Absolute Neutrophils 0.4(LL) 1.6 - 8.3 10e3/uL 05/02/2024 6:36 PM PROPERTY SITE MANAGER [facility] Comment:Abs neutrophils 0.7 05/02/24 10 am Absolute Lymphocytes 1.0 0.8 - 5.3 10e3/uL 05/02/2024 6:36 PM PROPERTY SITE MANAGER [facility] Absolute Monocytes 0.6 0.0 - 1.3 10e3/uL 05/02/2024 6:36 PM PROPERTY SITE MANAGER [facility] Absolute Eosinophils 0.1 0.0 - 0.7 10e3/uL 05/02/2024 6:36 PM PROPERTY SITE MANAGER [facility] Absolute Basophils 0.0 0.0 - 0.2 10e3/uL 05/02/2024 6:36 PM PROPERTY SITE MANAGER [facility] Absolute Immature Granulocytes 0.0 <=0.4 10e3/uL 05/02/2024 6:36 PM PROPERTY SITE MANAGER [facility] Absolute NRBCs 0.0 10e3/uL 05/02/2024 6:36 PM PROPERTY SITE MANAGER [facility] Blood STRUCTURE OF RIGHT UPPER LIMB / Unknown Venipuncture / Unknown 05/02/2024 5:23 PM PROPERTY SITE MANAGER 05/02/2024 5:30 PM PROPERTY SITE MANAGER Jimenez Dao MD LAB - BLOOD ORDERABLES Final Result LABORATORY [facility] Lab [address] Lab (1st floor, no room number) [address] * (ABNORMAL) Lactic acid whole blood with 1x repeat in 2 hr when >2 (05/02/2024 5:23 PM PROPERTY SITE MANAGER) Lactic Acid, Initial 2.1(H) 0.7 - 2.0 mmol/L 05/02/2024 5:33 PM PROPERTY SITE MANAGER [facility] Blood STRUCTURE OF RIGHT UPPER LIMB / Unknown Venipuncture / Unknown 05/02/2024 5:23 PM PROPERTY SITE MANAGER 05/02/2024 5:30 PM PROPERTY SITE MANAGER Jimenez Dao MD LAB - BLOOD ORDERABLES Final Result LABORATORY [facility] [address] Lab (1st floor, no room number) [place] [id number], [place] * (ABNORMAL) Comprehensive metabolic panel (05/02/2024 5:23 PM PROPERTY SITE MANAGER) Sodium 142 135 - 145 mmol/L 05/02/2024 5:56 PM PROPERTY SITE MANAGER [facility] Potassium 4.0 3.4 - 5.3 mmol/L 05/02/2024 5:56 PM PROPERTY SITE MANAGER [facility] Carbon Dioxide (CO2) 21(L) 22 - 29 mmol/L 05/02/2024 5:56 PM PROPERTY SITE MANAGER [facility] Anion Gap 12 7 - 15 mmol/L 05/02/2024 5:56 PM PROPERTY SITE MANAGER [facility] Urea Nitrogen 31.7(H) 8.0 - 23.0 mg/dL 05/02/2024 5:56 PM PROPERTY SITE MANAGER [facility] Creatinine 1.63(H) 0.67 - 1.17 mg/dL 05/02/2024 5:56 PM PROPERTY SITE MANAGER [facility] GFR Estimate 41(L) >60 mL/min/1.7 3m2 05/02/2024 5:56 PM PROPERTY SITE MANAGER [facility] Comment:eGFR calculated usin 2020 CKD-EPI equation. Calcium 8.5(L) 8.8 - 10.4 mg/dL 05/02/2024 5:56 PM PROPERTY SITE MANAGER [facility] Comment:Reference intervals for this test were updated on 12/29/2023 to reflect our healthy population more accurately. There may be differences in the flagging of prior results with similar values performed with this method. Those prior results can be interpreted in the context of the updated reference intervals. Chloride 109(H) 98 - 107 mmol/L 05/02/2024 5:56 PM PROPERTY SITE MANAGER [facility] Glucose 110(H) 70 - 99 mg/dL 05/02/2024 5:56 PM PROPERTY SITE MANAGER [facility] Alkaline Phosphatase 130 40 - 150 U/L 05/02/2024 5:56 PM PROPERTY SITE MANAGER [facility] AST 17 0 - 45 U/L 05/02/2024 5:56 PM PROPERTY SITE MANAGER [facility] ALT 11 0 - 70 U/L 05/02/2024 5:56 PM PROPERTY SITE MANAGER [facility] Protein Total 6.1(L) 6.4 - 8.3 g/dL 05/02/2024 5:56 PM PROPERTY SITE MANAGER [facility] Albumin 4.1 3.5 - 5.2 g/dL 05/02/2024 5:56 PM PROPERTY SITE MANAGER [facility] Bilirubin Total 0.4 <=1.2 mg/dL 05/02/2024 5:56 PM PROPERTY SITE MANAGER [facility] Blood STRUCTURE OF RIGHT UPPER LIMB / Unknown Venipuncture / Unknown 05/02/2024 5:23 PM PROPERTY SITE MANAGER 05/02/2024 5:30 PM PROPERTY SITE MANAGER us Jimenez Dao MD LAB - BLOOD ORDERABLES Final Result [facility] [address] Lab (1st floor, no room number) [place] [address] documented in this encounter Visit Diagnoses Diagnosis Pancytopenia (H) Other pancytopenia documented in this encounter Additional Health Concerns Assessment Noted Time PHQ-9 Depression Total Score: 0 01/02/20 18 7:00 AM CDT documented as of this encounter Care Teams Fry Cook Relationship Specialty Start Date End Date Rosa Moreau APRN LITERATURE PROFESSOR [address] [place] [address] PCP - General Nurse Practitioner Primary Care 12/02/23 [place] [address] [place] [address] Assigned PCP 06/21/17 05/06/24 Phil Patel MD [address] [address] Assigned Surgical Provider 05/26/21 [place] [address] [address] Assigned Musculoskeletal Provider 10/11/22 Phil Patel MD [address] [address] Urology 03/04/23 Dee Weiss MD [address] [place], [place] [address] Nephrology 10/30/23 Trang Michele MD [address] [place], [place] [address] Assigned Nephrology Provider 04/06/24 documented as of this encounter
--- OUTSIDE RECORDS SUMMARY | 2024-06-17 07:26 | XMS_ITS | Encounter Summary ---
Author Organization [facility] Address [address] [place] [address] Care Team Providers Care Director Of Early Childhood Name Role Phone Phil Patel MD Unavailable [phone] Moe Amezcua MD Unavailable Phil Patel MD Unavailable [phone] Dee Weiss MD Unavailable [phone] Rosa Moreau APRN AERIAL PHOTOGRAPHER Primary Care Provider [phone] Trang Michele MD Unavailable Rosa Moreau APRN AERIAL PHOTOGRAPHER Unavailable [phone] Reason for Referral * Diagnostic Imaging XR (Routine) - Pending Review Specialty Diagnoses / Procedures Referred By Taina t Referred To Contact Radiology. Diagnoses Nephrolithiasis Procedures XR KUB [[id number]] Phil Patel MD [address] [place] [address] Phone: tel: fax: Referral ID Status Reason Start Date Expiration Date V isits Requested Visits Authorized [id number] Pending Review 05/27/2024 05/27/2025 1 1 R UNDERSTUDY Encounter Details Date Type Department Care Team (Late st Contact Info) Description 05/27/2024 Orders Only [facility] Maria Elena [address] [place] [address] Phil Patel MD [address] [address] Prostate cancer (H) (Primary Dx); Nephrolithiasis Social History Tobacco Use Types Packs/Day Years [...] re latives? 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 Gender Identity Male 02/13/2021 11:50 AM CDT Sexual Orientation Bisexual 02/13/2021 11 :52 AM CDT documented as of this encounter Plan of Treatment Upcoming Encounters Date Type Department Care Team (Late st Contact Info) Description 03/15/2025 11:30 AM CDT Office Visit [facility] [address] [address] Trang Michele MD [address] [place] [id number] Scheduled Orders Name Type Priority Associated Diagnoses Orde r Schedule PSA tumor marker Lab Routine Prostate cancer (H) Expected: 05/27/2024 (Approximate), Expires: 05/27/2025 XR KUB [[id number]] Imaging Routine Nephrolithiasis Expected: 05/27/2024 (Approximate), Expires: 05/27/2025 documented as of this encounter Visit Diagnoses Diagnosis Prostate cancer (H)- Primary Malignant neoplasm of prostate Nephrolithiasis Calculus of kidney documented in this encounter Additional Health Concerns Assessment Noted Time PHQ-9 Depression Total Score: 0 01/02/20 18 7:00 AM CDT documented as of this encounter Care Teams Director Of Early Childhood Relationship Specialty Start Date End Date Rosa Moreau APRN AERIAL PHOTOGRAPHER [address] [place] [address] PCP - General Nurse Practitioner Primary Care 12/02/23 Phil Patel MD [address] [place] [address] Assigned Surgical Provider 05/26/21 [place] [address] [place] [address] Assigned Musculoskeletal Provider 10/11/22 hPil Patel MD [address] [place] [address] Urology 03/04/23 Dee Weiss MD [address] [place], [place] [address] Nephrology 10/30/23 Trang Michele MD [address] [place] [address] Assigned Nephrology Provider 04/06/24 Rosa Moreau APRN AERIAL PHOTOGRAPHER [address] [place] [address] Assigned PCP 05/07/24 documented as of this encounter
--- OUTSIDE RECORDS SUMMARY | 2024-06-17 07:26 | XMS_ITS | Encounter Summary ---
Author Organization [facility] Address [address] [place] [address] Care Team Providers Care Supervisor Of Instruction Name Role Phone Jimenez Parks MD Unavailable [phone] Janis Gómez MD Unavailable [phone] Phil Patel MD Unavailable [phone] Moe Amezcua MD Unavailable Phil Patel MD Unavailable Dee Weiss MD Unavailable [phone] Rosa Moreau APRN MOLDING ASSOCIATE Primary Care Provider [phone] Trang Michele MD Unavailable Rosa Moreau APRN MOLDING ASSOCIATE Unavailable [phone] Encounter Details Date Type Department Care Team (Late st Contact Info) Description 03/29/2024 [facility] Medical Advice [facility] [address] [address] Kierra Gresham RN Social History Tobacco Use Types Packs/Day Years [...] AM CDT 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 Gender Identity Male 02/13/2021 11:50 AM CDT Sexual Orientation Bisexual 02/13/2021 11 :52 AM CDT documented as of this encounter Plan of Treatment Upcoming Encounters Date Type Department Care Team (Late st Contact Info) Description 03/15/2025 11:30 AM CDT Office Visit [facility] [place] [address] [place] [address] [address] [place] [phone] Trang Michele MD [address] [place] [id number] documented as of this encounter Visit Diagnoses Not on filedocumented in this encounter Additional Health Concerns Assessment Noted Time PHQ-9 Depression Total Score: 0 01/02/20 18 7:00 AM CDT documented as of this encounter Care Teams Supervisor Of Instruction Relationship Specialty Start Date End Date Rosa Moreau APRN MOLDING ASSOCIATE [address] [place] [address] PCP - General Nurse Practitioner Primary Care 12/02/23 [place] [address] [place] [address] Assigned PCP 06/21/17 05/06/24 Janis Gó[place] [address] [place] [address] Assigned Nephrology Provider 02/24/21 04/05/24 Phil Patel MD [address] [place] [address] Assigned Surgical Provider 05/26/21 [place] [address] [place] [address] Assigned Musculoskeletal Provider 10/11/22 Phil Patel MD [address] [place] [address] Urology 03/04/23 Dee Weiss MD [address] [place], [place] [address] Nephrology 10/30/23 Trang Michele MD [address] [place] [address] Assigned Nephrology Provider 04/06/24 Rosa Moreau APRN MOLDING ASSOCIATE [address] [place] [address] Assigned PCP 05/07/24 documented as of this encounter
--- OUTSIDE RECORDS SUMMARY | 2024-06-17 07:26 | XMS_ITS | Encounter Summary ---
Author Organization [facility] Address [address] [place] [address]. [place] [address] Care Team Providers Care Cytopathologist Name Role Phone Jimenez Parks MD Unavailable Janis Gómez MD Unavailable Phil Patel MD Unavailable Moe Amezcua MD Unavailable Phil Patel MD Unavailable Dee Weiss MD Unavailable Rosa Moreau ABRASIVE GRINDER CAN CLOSING MACHINE OPERATOR Primary Care Provider [phone] Trang Michele MD Unavailable Rosa Moreau APRN CAN CLOSING MACHINE OPERATOR Unavailable [phone] Reason for Visit * Reason Onset Date Comments Call Back 03/21/2024 Filemon tapia have COVID currently - rescheduling appts to 0ct 15[facility] @ 930 am Encounter Details Date Type Department Care Team (Late st Contact Info) Description 03/21/[address] 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 or would you prefer to receive a phone call?: Patient would prefer a phone call Okay to leave a detailed message?: Yes at Home number on file [phone] (home) documented in this encounter Plan of Treatment Upcoming Encounters Date Type Department Care Team (Late st Contact Info) Description 03/15/2025 11:30 AM CDT Office Visit [facility] Special[facility] [address] [place] [address] Trang Michele MD [address] [place] [address] documented as of this encounter Visit Diagnoses Not on filedocumented in this encounter Additional Health Concerns Assessment Noted Time PHQ-9 Depression Total Score: 0 01/02/20 18 7:00 AM CDT documented as of this encounter Care Teams Cytopathologist Relationship Specialty Start Date End Date Alo chanysCRISTOFER serratoKolby [place] [address] [place] [address] PCP - General Nurse Practitioner Primary Care 12/02/23 [place] [address] [place] [address] Assigned PCP 06/21/17 05/06/24 Janis Gó[place] [address] [place] [address] Assigned Nephrology Provider 02/24/21 04/05/24 Phil Patel MD [address] [address] Assigned Surgical Provider 05/26/21 [place] [address] [place] [address] Assigned Musculoskeletal Provider 10/11/22 Phil Patel MD [address] [address] Urology 03/04/23 Dee Weiss MD [address] [place] [address] Nephrology 10/30/23 Trang Michele MD [address] [place] [address] Assigned Nephrology Provider 04/06/24 Rosa Moreau APRN CAN CLOSING MACHINE OPERATOR [address] [place] [address] Assigned PCP 05/07/24 documented as of this encounter
--- OUTSIDE RECORDS SUMMARY | 2024-06-17 07:26 | XMS_ITS | Referral Summary ---
Author Organization [facility] Address [address] [place] [address] Care Team Providers Care Photographic Specialist Name Role Phone Phil Patel MD Unavailable Moe Amezcua MD Unavailable Phil Patel MD Unavailable [phone] Dee Weiss MD Unavailable [phone] Rosa Moreau APRN FLAME CUTTING SUPERVISOR Primary Care Provider [phone] Trang Michele MD Unavailable Rosa Moreau APRN FLAME CUTTING SUPERVISOR Unavailable [phone] Encounters Date Type Department Care Team Description 05/27/2024 Orders Only [facility] [place] [address] [place] [address] Phil Patel MD Prostate cancer (H) (Primary Dx); Nephrolithiasis 05/03/2024 Telephone [facility] [address] [place] [address] Rosa Moreau APRN FLAME CUTTING SUPERVISOR Medication Question 05/02/2024 5:27 PM ELECTROTYPER APPRENTICE - 05/02/2024 9:10 PM ELECTROTYPER APPRENTICE Emergency [facility] Emergency Dept [address] [place] [phone] Jimenez Dao MD Pancytopenia (H) Discharge Disposition: Home or Self Care 05/02/[address] [phone] Rosa Moreau APRN CNP 05/02/2024 Travel 05/02/2024 9:30 AM ELECTROTYPER APPRENTICE Office Visit [address] [phone] Rosa Moreau APRN FLAME CUTTING SUPERVISOR Encounter for Medicare annual wellness exam (Primary Dx); Stage 3a chronic kidney disease (H); 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); Essential hypertension; Subacute frontal sinusitis; Seasonal allergic rhinitis, unspecified trigger; Need for influenza vaccination; Need for COVID-19 vaccine 04/28/[address] [phone] Rosa Moreau APRN FLAME CUTTING SUPERVISOR 03/30/[address] [phone] Rosa Moreau APRN CNP Patient Request 03/29/2024 MyC Medical Advice [facility] [address] [phone] Kierra Gresham RN 03/29/2024 Travel 03/29/2024 9:30 AM CDT Lab [facility] [address] [place] [phone] Anemia, unspecified type 03/21/2024 Documentation Only [facility] [address] [place] [address] Trang Michele MD 03/21/[address] [phone] Rosa Moreau APRN FLAME CUTTING SUPERVISOR Call Back ([place] and [place] both have COVID currently - rescheduling appts to 0ct 15th @ 930 am ) from Last 3 Months Allergies Active Allergy Reactions Criticality Noted Date [...] Active mometasone (NASONEX) 50 MCG/ACT nasal spray Wil[place] 1 spray into both nostrils daily Active pantoprazole (PROTONIX) 40 MG EC tabletIndication s: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 18.2 [...] Plan (12/25/2022 3:14 PM CDT): Nephrology appt Sept. Continue ARB Disorder of gallbladder 09/23/2022 09/24/19 Overview (09/23/2022): Oct 01, 2006 Entered By: CARYN AUGUSTINE Comment: 01/01/07 dr. FyreOct 01, 2006 Entered By: CARYN AUGUSTINE Comment: [...] CARYN AUGUSTINE Comment: L cataract sx 10/2012 outside[facility]2015 Entered By: CARYN AUGUSTINE Comment: R cataract sx October 31, 2009 Entered By: CARYN AUGUSTINE Comment: ACUTE care Dr. Sneed 2014 Entered By: CARYN AUGUSTINE Comment: PCP Dr. Parks [phone] [id number] 2014 Entered By: CARYN AUGUSTINE Comment: [facility] 2015 Entered By: CARYN AUGUSTINE Comment: Uro Dr. Rodriguez [phone] f October 31, 2009 Entered By: ACRYN AUGUSTINE Comment: m melanoma Oct 01, 2006 [...] October Assessment & Plan (04/24/2022 11:23 AM ELECTROTYPER APPRENTICE): Began flexing hard to trim toenails. Improving., [...] database Midline low back pain without sciatica 0 Assessment & Plan (10/31/2019 8:21 AM CDT): He reports low back pain twice a week which he blames on his losartan. I recommend he hold it for 2 weeks and rechallenge. 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 Benign. Discussed. No further evaluation Renal cyst 07/05/2019 Overview (11/15/2021): Polycystic kidney disease Assessment & Plan (11/15/2021 8:28 AM CDT): He has questions about his renal cysts. discussed Assessment & Plan (07/05/2019 8:26 PM ELECTROTYPER APPRENTICE): Likely congenital. Urology evaluation continues Secondary hyperparathyroidism of renal origin Assessment & Plan (09/23/2022 10:04 PM CDT): Nephrology follows. Notes reviewed Assessment & Plan (11/15/2021 8:03 AM CDT): He is followed by nephrology Assessment & Plan (07/23/2020 12:39 PM ELECTROTYPER APPRENTICE): He was placed on vitamin D, but this was not followed up. We should do so now. Given his excellent GFR, this may be primary Elevated glucose 03/29/2019 Assessment & Plan (12/25/2022 3:15 PM CDT): Not prediabetes. Yearly A1c Assessment & Plan (09/23/2022 10:04 PM CDT): 1DayLater database Assessment & Plan (11/15/2021 8:04 AM [...] 11/04/2016 Assessment & Plan (07/23/2020 12:34 PM ELECTROTYPER APPRENTICE): Urology plans 5-year review in September with [...] measure Assessment & Plan (07/23/2020 12:39 PM ELECTROTYPER APPRENTICE): Discussed his excellent glomerular function for a man of his age Assessment & Plan (10/31/2019 8:22 AM CDT): On ARB. Almost normal. GFR Estimate Date Value Ref Range Status 06/30/2019 45 (L) >60 mL/min/[1.73_m2] Final Assessment & Plan (07/05/2019 8:28 PM ELECTROTYPER APPRENTICE): GFR Estimate Date Value Ref Range Status 06/30/2019 45 (L) >60 mL/min/[1.73_m2] Final ARB Assessment & Plan (05/04/2019 6:06 AM ELECTROTYPER APPRENTICE): Discussed natural history, recommend increased water intake. [...] continue Assessment & Plan (07/23/2020 12:34 PM ELECTROTYPER APPRENTICE): Borderline control at last measure. Discussed he reports blood pressure 112/88 this morning at home. No changes Assessment & Plan (10/31/2019 8:20 AM CDT): He reports blood pressures of 127/72. Assessment & Plan (07/05/2019 8:28 PM ELECTROTYPER APPRENTICE): BP Readings from Last 1 Encounters: 07/05/19 128/72 He find higher doses of this his losartan yielded back pain. 1 to 4%. Regardless, current dose with control blood pressure. Monitor suspect back pain more likely related to nephrolithiasis than losartan Assessment & Plan (05/04/2019 6:06 AM ELECTROTYPER APPRENTICE): Borderline control increase Cozaar 50mg Assessment & Plan (03/29/2019 9:38 AM CDT): Controlled, continue Losartan 25mg. Overweight 10/18/2015 Cataract 10/18/2015 Hyperlipidemia LDL goal <160 10/17/2015 Overview (11/11/2016): 20.9% 10 year risk 09/2014 Assessment & Plan (07/23/2020 12:36 PM ELECTROTYPER APPRENTICE): He has long declined statin use Knee pain 05/21/2012 Chronic rhinitis 05/30/2011 Overview (03/31/2019): Model is years of sinus infections Assessment & Plan (12/25/2022 3:10 PM CDT): Active at this time. On triple nasal therapies. Continue Assessment & Plan (04/24/2022 11:20 AM ELECTROTYPER APPRENTICE): On 3 agents, sx not eliminated. He [...] dose Assessment & Plan (07/23/2020 12:33 PM ELECTROTYPER APPRENTICE): 3 nasal sprays. Discussed air particle reduction, household humidifier. He is using decongestants. Discussed rebound. Assessment & Plan (10/31/2019 8:22 AM CDT): Responsive to multiple nasal sprays. Assessment & Plan (05/04/2019 6:05 AM ELECTROTYPER APPRENTICE): Continue measures. Recommended Vaseline to internal nares, nasal sprays alcohol free Assessment & Plan (03/31/2019 8:42 PM CDT): Effective, continue Singulair 10mg. Nasal steroids, atrovent refilled at [facility]. Hx of skin cancer, basal cell 05/30/2011 [...] 09/23/22 (!) 156/80 08/21/22 137/86 04/24/22 131/76 03/03/22 128/71 01/21/22 138/70 11/14/21 (!) 148/70 Monitor [...] home study. We will refer to the [facility], as well as broaden database History of 2019 novel mack virus disease (COVID-19) 09/23/2022 05/02/2024 Assessment & Plan (12/25/2022 3:12 PM CDT): He did not go to [facility], but feels better, still with some fatigue. Assessment & Plan (09/23/2022 10:00 PM CDT): He believes his fatigue dates to his COVID infection. History suggests obstructive sleep apnea. Discussed differential. He will except a home sleep study, but will not going to a sleep lab. We will refer to the [facility] broad database Encounter for administration of COVID-19 vaccine 09/23/2022 05/02/2024 Assessment & Plan (09/23/2022 10:00 PM CDT): Offered Encounter for immunization 11/15/2021 1 07/02/2023 Assessment & Plan (04/24/2022 11:25 AM ELECTROTYPER APPRENTICE): He is willing, would like 1 at [...] 11/15/2020 Assessment & Plan (07/05/2019 8:27 PM ELECTROTYPER APPRENTICE): Under evaluation by urology. Periodic large quantities, [...] confirm Imo Update utility Bee sting reaction 4 Immunizations Name Administration Dates Next Due COVID-19 [...] d (SHINGRIX) 12/21/2018,10/12/2018 Zoster vaccine, live 11/06/2011 Social History Tobacco Use Types Packs/Day Years [...] re latives? Once a week 05/02/2024 Attends [employer] Services Not on file 05/02 Active Member of Clubs or Organizations Not on f ile 05/02/2024 Attends Club or Organization Meetings Not on elaine e 05/02/2024 Marital Status Not on file 05/02/2024 PHQ-2 Answer Date Recorded PHQ-2 Score 0 05/02/2024 [facility] [place] of Occupat ional Health - Occupational Stress [...] in an abandoned building, in an overnight snf, or couch-surfing.) Yes 05/02/2024 Are you worried [...] AM CDT Legal Sex Male 3:31 AM ELECTROTYPER APPRENTICE Gender Identity Male 02/13/2021 11:50 AM CDT Sexual Orientation Bisexual 02/13/2021 11 :52 AM CDT Last Filed Vital Signs Vital Sign Reading Time Taken Comments Blood Pressure 140/99 05/02/2024 9:00 PM ELECTROTYPER APPRENTICE Pulse 66 05/02/2024 9:00 PM ELECTROTYPER APPRENTICE Temperature 36.8 C (98.2 F) 05/02/2024 5:08 PM ELECTROTYPER APPRENTICE Respiratory Rate 20 05/02/2024 5:08 PM ELECTROTYPER APPRENTICE Oxygen Saturation 95% 05/02/2024 9:00 PM ELECTROTYPER APPRENTICE Inhaled Oxygen Concentration - - Weight 95.7 kg (210 lb 15.7 oz) 05/02/2024 5:08 PM ELECTROTYPER APPRENTICE Height 182.9 cm (6') 05/02/2024 5:08 PM ELECTROTYPER APPRENTICE Body Mass Index 28.61 05/02/2024 5:08 PM ELECTROTYPER APPRENTICE Plan of Treatment Upcoming Encounters Date Type Department Care Team (Late st Contact Info) Description 03/15/2025 11:30 AM CDT Office Visit [address] [phone] Trang Michele MD [address] [place] [address] [phone] Medical Devices Implanted Type Area Gang Investigator Device Identifier Shelf Expiration Date Model / Serial / Lot Eye Imp Iol [place] Pcl Technis [id number] 21.0 Implanted:Qty: 1 on 11/18/2012 by Eric Jones MD at [facility] Left: Eye ADVANCED MEDICAL OPT 07/14/2016 ZCB00 21.0 / [id number] / Eye Imp Iol [place] Pcl Tecnis Zcb00 21.0 Implanted:Qty: 1 on 01/03/2016 by Eric Jones MD at [facility] Right: Eye ADVANCED MEDICAL OPT 08/09/2019 ZCB00 21.0 / [id number] / Procedures Procedure Name Priority Date/Time Associated Diagnosis Comments BLOOD CULTURE STAT 05/02/2024 7:07 PM ELECTROTYPER APPRENTICE LACTIC ACID WHOLE BLOOD STAT 05/02/2024 7:07 PM ELECTROTYPER APPRENTICE EKG 12-LEAD, TRACING ONLY STAT 05/02/2024 5:43 PM ELECTROTYPER APPRENTICE ROUTINE UA WITH MICROSCOPIC REFLEX TO CULTURE STAT 05/02/2024 5:30 PM ELECTROTYPER APPRENTICE ABO/RH TYPE AND SCREEN STAT 5:23 PM ELECTROTYPER APPRENTICE CBC WITH PLATELETS & DIFFERENTIAL STAT 05/02/2024 5:23 PM ELECTROTYPER APPRENTICE TYPE AND SCREEN, ADULT STAT 5:23 PM ELECTROTYPER APPRENTICE RBC AND PLATELET MORPHOLOGY STAT 05/02/2024 5:23 PM ELECTROTYPER APPRENTICE EXTRA RED TOP TUBE STAT 05/02/2024 5: 23 PM ELECTROTYPER APPRENTICE EXTRA BLUE TOP TUBE STAT 05/02/2024 5 :23 PM ELECTROTYPER APPRENTICE CBC WITH PLATELETS AND DIFFERENTIAL STAT 05/02/2024 5:23 PM ELECTROTYPER APPRENTICE EXTRA TUBE STAT 05/02/2024 5:23 PM ELECTROTYPER APPRENTICE LACTIC ACID WHOLE BLOOD WITH 1X REPEAT IN 2 HR WHEN >2 STAT 05/02/2024 5:23 PM ELECTROTYPER APPRENTICE COMPREHENSIVE METABOLIC PANEL STAT 05/02/2024 5:23 PM ELECTROTYPER APPRENTICE CBC WITH PLATELETS & DIFFERENTIAL Routine 05/02/2024 10:02 AM ELECTROTYPER APPRENTICE 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) RBC AND PLATELET MORPHOLOGY Routine 05/02/2024 10:02 AM ELECTROTYPER APPRENTICE 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) CBC WITH PLATELETS AND DIFFERENTIAL Routine 05/02/2024 10:02 AM ELECTROTYPER APPRENTICE 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) BASIC METABOLIC PANEL Routine 05/02/2024 10:02 AM ELECTROTYPER APPRENTICE Stage 3a chronic kidney disease (H) METHYLMALONIC [...] Lactic acid whole blood (05/02/2024 7:07 PM ELECTROTYPER APPRENTICE) Lactic Acid 1.8 0.7 - 2.0 mmol/L 05/02/2024 7:13 PM ELECTROTYPER APPRENTICE [facility] Blood STRUCTURE OF RIGHT UPPER LIMB / Unknown Venipuncture / Unknown 05/02/2024 7:07 PM ELECTROTYPER APPRENTICE 05/02/2024 7:11 PM ELECTROTYPER APPRENTICE us Jimenez Dao MD LAB - BLOOD ORDERABLES Final Result LABORATORY [facility] Acute Care Lab [address] Lab (1st floor, no room number) [place] [address] * Blood Culture Arm, Right (05/02/2024 7:07 PM ELECTROTYPER APPRENTICE) Culture No Growth 05/07/2024 11:16 PM ELECTROTYPER APPRENTICE [facility] Blood STRUCTURE OF RIGHT UPPER LIMB / Unknown Venipuncture / Unknown 05/02/2024 7:07 PM ELECTROTYPER APPRENTICE 05/02/2024 7:11 PM ELECTROTYPER APPRENTICE us Jimenez Dao MD LAB - MICRO GENERAL ORDERABL ES Final Result Performing Organization Address City/[facility]/ZIP Co de Phone Number [facility] Inf. Diseases Diag. Lab [address] [facility] [place] [address] * EKG 12 lead (05/02/2024 5:43 PM ELECTROTYPER APPRENTICE) Systolic Blood Pressure mmHg RADIOLOGY RESULTS Diastolic Blood Pressure mmHg RADIOLOGY RESULTS Ventricular Rate 73 BPM RAD IOLOGY RESULTS Atrial Rate 73 BPM RADIOLOG Y RESULTS TX Interval 178 ms RADIOLOG Y RESULTS QRS Duration 156 ms RADIOLO GY RESULTS QT 452 ms RADIOLOGY RESULTS QTc 497 ms RADIOLOGY RESULTS P [place] 67 degrees RADIOLOGY RESULTS R AXIS 61 degrees RADIOLOGY RESULTS T [place] -83 degrees RADIOLOGY RESULTS Interpretation ECG Sinus rhythm Left bundle branch block Abnormal ECG When compared with ECG of 20-Jan-2024 03:40, T wave inversion more evident in Inferior leads Confirmed by - EMERGENCY ROOM, PHYSICIAN ([id number]), graphic editor JUVENAL TOLLIVER ([id number]) on 05/03/2024 6:46:37 AM RADIOLOGY RESULTS 05/02/2024 5:43 PM ELECTROTYPER APPRENTICE 05/03/2024 6:46 AM ELECTROTYPER APPRENTICE us Jimenez Dao MD ECG ORDERABLES Edited Resul t - Final RADIOLOGY RESULTS * UA with Microscopic reflex to Culture (05/02/2024 5:30 PM ELECTROTYPER APPRENTICE) Color Urine Light Yellow Colorless, Straw, Light Yellow, Yellow 05/02/2024 5:55 PM ELECTROTYPER APPRENTICE LABORATORY Appearance Urine Clear Clear 05/02/20 5:55 PM ELECTROTYPER APPRENTICE LABORATORY Glucose Urine Negative Negative mg/dL 05/02/2024 5:55 PM ELECTROTYPER APPRENTICE LABORATORY Bilirubin Urine Negative Negative 5:55 PM ELECTROTYPER APPRENTICE LABORATORY Ketones Urine Negative Negative mg/dL 05/02/2024 5:55 PM ELECTROTYPER APPRENTICE LABORATORY Specific [place] Urine 1.014 1.003 - 1.035 05/02/2024 5:55 PM ELECTROTYPER APPRENTICE LABORATORY Blood Urine Negative Negative 05/02/2024 5:55 PM ELECTROTYPER APPRENTICE LABORATORY pH Urine 5.0 5.0 - 7.0 05/02/2024 5:55 PM ELECTROTYPER APPRENTICE LABORATORY Protein Albumin Urine Negative Negative mg/dL 05/02/2024 5:55 PM ELECTROTYPER APPRENTICE LABORATORY Urobilinogen Urine Normal Normal, 2.0 mg/dL 05/02/2024 5:55 PM ELECTROTYPER APPRENTICE LABORATORY Nitrite Urine Negative Negative 05/02/2024 5:55 PM ELECTROTYPER APPRENTICE LABORATORY Leukocyte Esterase Urine Negative Negative 05/02/2024 5:55 PM ELECTROTYPER APPRENTICE LABORATORY RBC Urine 0 <=2 /HPF 05/02/2024 5:55 PM ELECTROTYPER APPRENTICE LABORATORY WBC Urine 1 <=5 /HPF 05/02/2024 5:55 PM ELECTROTYPER APPRENTICE LABORATORY Squamous Epithelials Urine <1 <=1 /HPF 05/02/2024 5:55 PM ELECTROTYPER APPRENTICE LABORATORY Urine MID-STREAM URINE SPECIMEN / Unknown Non-blood Collection / Unknown 05/02/2024 5:30 PM ELECTROTYPER APPRENTICE 05/02/2024 5:37 PM ELECTROTYPER APPRENTICE Narrative [facility] - 05/02/2024 5:55 PM ELECTROTYPER APPRENTICE Urine Culture not indicated us Jimenez Dao MD LAB - URINE ORDERABLES Final Result [facility] Lab [address] Lab (1st floor, no room number) [place] [address], [facility] * Extra Red Top Tube (05/02/2024 5:23 PM ELECTROTYPER APPRENTICE) Hold Specimen [facility] 05/02/2024 6:31 PM ELECTROTYPER APPRENTICE [facility] Blood STRUCTURE OF RIGHT UPPER LIMB / Unknown Venipuncture / Unknown 05/02/2024 5:23 PM ELECTROTYPER APPRENTICE 05/02/2024 5:30 PM ELECTROTYPER APPRENTICE us Jimenez Dao MD LAB - BLOOD ORDERABLES Final Result [facility] Lab [address] Lab (1st floor, no room number) [place] [address], [facility] * Extra Blue Top Tube (05/02/2024 5:23 PM ELECTROTYPER APPRENTICE) Hold Specimen [facility] 05/02/2024 6:31 PM ELECTROTYPER APPRENTICE [facility] Blood STRUCTURE OF RIGHT UPPER LIMB / Unknown Venipuncture / Unknown 05/02/2024 5:23 PM ELECTROTYPER APPRENTICE 05/02/2024 5:30 PM ELECTROTYPER APPRENTICE us Jimenez Dao MD LAB - BLOOD ORDERABLES Final Result Performing Organization Address City/[facility]/ZIP Co de Phone Number [facility] Lab [address] Lab (1st floor, no room number) [place] [address] * (ABNORMAL) Lactic acid whole blood with 1x repeat in 2 hr when >2 (05/02/2024 5:23 PM ELECTROTYPER APPRENTICE) [facility] Lactic Acid, Initial 2.1(H) 0.7 - 2.0 mmol/L 05/02/2024 5:33 PM ELECTROTYPER APPRENTICE [facility] Blood STRUCTURE OF RIGHT UPPER LIMB / Unknown Venipuncture / Unknown 05/02/2024 5:23 PM ELECTROTYPER APPRENTICE 05/02/2024 5:30 PM ELECTROTYPER APPRENTICE us Jimenez Dao MD LAB - BLOOD ORDERABLES Final Result [facility] Lab [address] [facility] Lab (1st floor, no room number) [place] [address] * (ABNORMAL) RBC and Platelet Morphology (05/02/2024 5:23 PM ELECTROTYPER APPRENTICE) Only the most recent of2 resultswithin the time period is included. [facility] RBC Morphology Confirmed RBC Indices 05/02/2024 6:36 PM ELECTROTYPER APPRENTICE [facility] Platelet Assessment Automated Count Confirmed. Platelet morphology is normal. Automated Count Confirmed. Platelet morphology is normal. LIT 05/02/2024 6:36 PM ELECTROTYPER APPRENTICE [facility] Reactive Lymphocytes Present(A) None Seen LIT 05/02/2024 6:36 PM ELECTROTYPER APPRENTICE [facility] Blood STRUCTURE OF RIGHT UPPER LIMB / Unknown Venipuncture / Unknown 05/02/2024 5:23 PM ELECTROTYPER APPRENTICE 05/02/2024 5:30 PM ELECTROTYPER APPRENTICE us Jimenez Dao MD LAB - BLOOD ORDERABLES Final Result Performing Organization Address City/State/[facility] Co de Phone Number [facility] Lab [address] Lab (1st floor, no room number) [place] [address] * (ABNORMAL) CBC with platelets and differential (05/02/2024 5:23 PM ELECTROTYPER APPRENTICE) Only the most recent of2 resultswithin the time period is included. [facility] WBC Count 2.2(L) 4.0 - 11.0 10e3/uL 05/02/2024 6:36 PM ELECTROTYPER APPRENTICE [facility] RBC Count 2.41(L) 4.40 - 5.90 10e6/uL 05/02/2024 6:36 PM ELECTROTYPER APPRENTICE [facility] Hemoglobin 8.8(L) 13.3 - 17.7 g/dL 05/02/2024 6:36 PM ELECTROTYPER APPRENTICE [facility] Hematocrit 25.8(L) 40.0 - 53.0 % 05/02/2024 6:36 PM ELECTROTYPER APPRENTICE [facility] MCV 107(H) 78 - 100 fL 05/02/2024 6:36 PM ELECTROTYPER APPRENTICE [facility] MCH 36.5(H) 26.5 - 33.0 pg 05/02/2024 6:36 PM ELECTROTYPER APPRENTICE [facility] MCHC 34.1 31.5 - 36.5 g/dL 05/02/2024 6:36 PM ELECTROTYPER APPRENTICE [facility] RDW 15.3(H) 10.0 - 15.0 % 05/02/2024 6:36 PM ELECTROTYPER APPRENTICE [facility] Platelet Count 93(L) 150 - 450 10e3/uL 05/02/2024 6:36 PM ELECTROTYPER APPRENTICE [facility] % Neutrophils 19 % 05/02/2024 6:36 PM ELECTROTYPER APPRENTICE [facility] % Lymphocytes 46 % 05/02/2024 6:36 PM ELECTROTYPER APPRENTICE [facility] % Monocytes 29 % 05/02/2024 6:36 PM ELECTROTYPER APPRENTICE [facility] % Eosinophils 4 % 05/02/2024 6:36 PM ELECTROTYPER APPRENTICE [facility] % Basophils 1 % 05/02/2024 6:36 PM ELECTROTYPER APPRENTICE [facility] % Immature Granulocytes 1 % 05/02/2024 6:36 PM ELECTROTYPER APPRENTICE [facility] NRBCs per 100 WBC 0 <1 /100 024 6:36 PM ELECTROTYPER APPRENTICE [facility] Absolute Neutrophils 0.4(LL) 1.6 - 8.3 10e3/uL 05/02/2024 6:36 PM ELECTROTYPER APPRENTICE [facility] Comment:Abs neutrophils 0.7 05/02/24 10 am Absolute Lymphocytes 1.0 0.8 - 5.3 10e3/uL 05/02/2024 6:36 PM ELECTROTYPER APPRENTICE [facility] Absolute Monocytes 0.6 0.0 - 1.3 10e3/uL 05/02/2024 6:36 PM ELECTROTYPER APPRENTICE [facility] Absolute Eosinophils 0.1 0.0 - 0.7 10e3/uL 05/02/2024 6:36 PM ELECTROTYPER APPRENTICE [facility] Absolute Basophils 0.0 0.0 - 0.2 10e3/uL 05/02/2024 6:36 PM ELECTROTYPER APPRENTICE [facility] Absolute Immature Granulocytes 0.0 <=0.4 10e3/uL 05/02/2024 6:36 PM ELECTROTYPER APPRENTICE [facility] Absolute NRBCs 0.0 10e3/uL 05/02/2024 6:36 PM ELECTROTYPER APPRENTICE [facility] Blood STRUCTURE OF RIGHT UPPER LIMB / Unknown Venipuncture / Unknown 05/02/2024 5:23 PM ELECTROTYPER APPRENTICE 05/02/2024 5:30 PM ELECTROTYPER APPRENTICE Jimenez Dao MD LAB - BLOOD ORDERABLES Final Result [facility] Lab [address] Lab (1st floor, no room number) [place] [address] * Adult Type and Screen (05/02/2024 5:23 PM ELECTROTYPER APPRENTICE) ABO/RH(D) B POS 05/02/2024 5:11 PM ELECTROTYPER APPRENTICE [facility] BLOOD BANK Antibody Screen Negative Negative 05/02/2024 5:11 PM ELECTROTYPER APPRENTICE [facility] SPECIMEN EXPIRATION DATE [id number] 05/02/2024 5:11 PM ELECTROTYPER APPRENTICE [facility] Blood STRUCTURE OF RIGHT UPPER LIMB / Unknown Venipuncture / Unknown 05/02/2024 5:23 PM ELECTROTYPER APPRENTICE 05/02/2024 5:30 PM ELECTROTYPER APPRENTICE Jimenez Dao MD LAB - BLOOD BANK TEST ORDER Final Result BLOOD BANK [address] [place] [address] * (ABNORMAL) Comprehensive metabolic panel (05/02/2024 5:23 PM ELECTROTYPER APPRENTICE) Sodium 142 135 - 145 mmol/L 05/02/2024 5:56 PM ELECTROTYPER APPRENTICE LABORATORY Potassium 4.0 3.4 - 5.3 mmol/L 05/02/2024 5:56 PM ELECTROTYPER APPRENTICE LABORATORY Carbon Dioxide (CO2) 21(L) 22 - 29 mmol/L 05/02/2024 5:56 PM [facility] Anion Gap 12 7 - 15 mmol/L 05/02/2024 5:56 PM ELECTROTYPER APPRENTICE LABORATORY Urea Nitrogen 31.7(H) 8.0 - 23.0 mg/dL 05/02/2024 5:56 PM ELECTROTYPER APPRENTICE LABORATORY Creatinine 1.63(H) 0.67 - 1.17 mg/dL 05/02/2024 5:56 PM ELECTROTYPER APPRENTICE LABORATORY GFR Estimate 41(L) >60 mL/min/1.7 3m2 05/02/2024 5:56 PM ELECTROTYPER APPRENTICE LABORATORY Comment:eGFR calculated usin 2020 CKD-EPI equation. Calcium 8.5(L) 8.8 - 10.4 mg/dL 05/02/2024 5:56 PM ELECTROTYPER APPRENTICE [facility] Comment:Reference intervals for this test were updated on 12/29/2023 to reflect our healthy population more accurately. There may be differences in the flagging of prior results with similar values performed with this method. Those prior results can be interpreted in the context of the updated reference intervals. Chloride 109(H) 98 - 107 mmol/L 05/02/2024 5:56 PM ELECTROTYPER APPRENTICE [facility] Glucose 110(H) 70 - 99 mg/dL 05/02/2024 5:56 PM ELECTROTYPER APPRENTICE [facility] Alkaline Phosphatase 130 40 - 150 U/L 05/02/2024 5:56 PM ELECTROTYPER APPRENTICE [facility] AST 17 0 - 45 U/L 05/02/2024 5:56 PM ELECTROTYPER APPRENTICE [facility] ALT 11 0 - 70 U/L 05/02/2024 5:56 PM ELECTROTYPER APPRENTICE LAB[facility] Protein Total 6.1(L) 6.4 - 8.3 g/dL 05/02/2024 5:56 PM ELECTROTYPER APPRENTICE [facility]ORY Albumin 4.1 3.5 - 5.2 g/dL 05/02/2024 5:56 PM ELECTROTYPER APPRENTICE LAB[facility]ATORY Bilirubin Total 0.4 <=1.2 mg/dL 05/02/2024 5:56 PM ELECTROTYPER APPRENTICE [facility] Blood STRUCTURE OF RIGHT UPPER LIMB / Unknown Venipuncture / Unknown 05/02/2024 5:23 PM ELECTROTYPER APPRENTICE 05/02/2024 5:30 PM ELECTROTYPER APPRENTICE us Jimenez Dao MD LAB - BLOOD ORDERABLES Final Result LABORATORY [facility] [address] Lab (1st floor, no room number) [place] [address], [facility] * (ABNORMAL) Basic metabolic panel (Ca, Cl, CO2, Creat, Gluc, K, Na, BUN) (05/02/2024 10:02 AM ELECTROTYPER APPRENTICE) Sodium 141 135 - 145 mmol/L 05/02/2024 4:50 PM ELECTROTYPER APPRENTICE [facility] Potassium 4.4 3.4 - 5.3 mmol/L 05/02/2024 4:50 PM ELECTROTYPER APPRENTICE [facility] Chloride 108(H) 98 - 107 mmol/L 05/02/2024 4:50 PM ELECTROTYPER APPRENTICE [facility] Carbon Dioxide (CO2) 21(L) 22 - 29 mmol/L 05/02/2024 4:50 PM ELECTROTYPER APPRENTICE [facility] Anion Gap 12 7 - 15 mmol/L 05/02/2024 4:50 PM ELECTROTYPER APPRENTICE [facility] Urea Nitrogen 28.8(H) 8.0 - 23.0 mg/dL 05/02/2024 4:50 PM ELECTROTYPER APPRENTICE [facility] Creatinine 1.50(H) 0.67 - 1.17 mg/dL 05/02/2024 4:50 PM ELECTROTYPER APPRENTICE [facility] GFR Estimate 46(L) >60 mL/min/1.7 3m2 05/02/2024 4:50 PM ELECTROTYPER APPRENTICE [facility] Comment:eGFR calculated usin 2020 CKD-EPI equation. Calcium 9.3 8.8 - 10.4 mg/dL 05/02/2024 4:50 PM ELECTROTYPER APPRENTICE [facility] Comment:Reference intervals for this test were updated on 12/29/2023 to reflect our healthy population more accurately. There may be differences in the flagging of prior results with similar values performed with this method. Those prior results can be interpreted in the context of the updated reference intervals. Glucose 105(H) 70 - 99 mg/dL 05/02/2024 4:50 PM ELECTROTYPER APPRENTICE [facility] Blood BLOOD SPECIMEN / Unknown Venipuncture / Unknown 05/02/2024 10:02 AM ELECTROTYPER APPRENTICE 05/02/2024 10:02 AM ELECTROTYPER APPRENTICE us Rosa Moreau APRN FLAME CUTTING SUPERVISOR LAB - BLOOD ORDERABLES Fin al Result [facility] [place] [facility] [address] [facility], [address] [place] [address] * (ABNORMAL) Methylmalonic Acid (03/29/2024 9:21 [...] and its performance characteristics determined by the [facility], Special Chemistry Laboratory. It has not been cleared or approved by the FDA. The laboratory is regulated under CLIA as qualified to perform high-complexity testing. This test is used for clinical purposes. It should not be regarded as investigational or for research. [facility] LAB - BLOOD ORDERABLES Fin al Result Performing Organization Address City/[facility] Co de Phone Number SPECIAL DRUG/[facility] Special Drug/BGEN [address] [facility], [address] * Folate (03/29/2024 9:21 AM CDT) Pathologist [facility] Folic Acid 14.2 4.6 - 34.8 ng/mL 03/29/2024 2:31 PM CDT U LABORATORY Blood BLOOD SPECIMEN / Unknown Venipuncture / Unknown 03/29/2024 9:21 AM CDT 03/29/2024 9:28 AM CDT [employer] [facility] LAB - BLOOD ORDERABLES Fin al Result U LABORATORY [facility] [place] [facility] [address] [facility], [address] * (ABNORMAL) Albumin Random Urine Quantitative with [...] control, and institution of therapy with an ppqyjndwmie-effsapghek-ckxdwx (SHIRA) inhibitor (if the patient can tolerate it). Urine URINE SPECIMEN OBTAINED BY CLEAN CATCH PROCEDURE / Unknown Non-blood Collection / Unknown 03/09/2024 11:01 AM CDT 03/09/2024 11:12 AM CDT us Trang Michele MD LAB - URINE ORDERABLES Final Res ult [facility] LABORAT[facility] Lab [address] [facility], [address] [place] [address] * HEMOGLOBIN A1C (01/28/2024 3:25 PM CDT) Hemoglobin A1C 5.6 0.0 - 5.6 % 01/29/2024 10:53 AM CDT [facility] Comment: Normal <5.7% Prediabetes 5.7-6.4% Diabetes 6.5% or higher Note: Adopted from ADA consensus guidelines. Blood BLOOD SPECIMEN / Unknown Venipuncture / Unknown 01/28/2024 3:25 PM CDT 01/28/2024 3:25 PM CDT Rosa Moreau APRN, CNP LAB - BLOOD ORDERABLES Fin al Result Performing Organization Address City/[facility]/ZIP Co de Phone Number CR LABORATORY [facility] [address] [facility] Lab (no room number, 1st floor of clinic) [place] [address], [facility] * (ABNORMAL) Lipid Profile (Chol, Trig, HDL, LDL calc) (10/18/2015 9:01 AM CDT) Cholesterol 197 <200 mg/dL [facility] Triglycerides 108 <150 mg/dL [facility] Comment:Fasting specimen HDL Cholesterol 51 >39 mg/dL [facility] LDL Cholesterol Calculated 124(H) <100 mg/dL [facility] Comment: Above desirable: 100-129 mg/dl Borderline High: 130-159 mg/dL High: 160-189 mg/dL Very high: >189 mg/dl Non HDL Cholesterol 146(H) <130 mg/dL [facility] Comment: Above Desirable: 130-159 mg/dl Borderline high: 160-189 mg/dl High: 190-219 mg/dl Very high: >219 mg/dl Blood specimen (specimen) 10/18/2015 9:01 AM CDT 10/18/2015 9:02 AM CDT Jimenez Parks MD LAB - BLOOD ORDERABLES Final Re sult [facility] [address] [place] [address] from Last 3 Months or Most Recently Relevant to Health Maintenance Insurance [place] Advance Directives For more information, please contact: [phone] * Full Code (Latest Code Status on File) Date Activated Date Inactivated Comments 01/20/2024 6:15 AM 01/23/2024 2:10 PM All basic and advanced life-sustaining interventions are performed as appropriate Question Answer Comments Code status determined by: Discussion with patie nt/ legal decision maker Care Teams Photographic Specialist Relationship Specialty Start Date End Date Rosa Moreau APRN FLAME CUTTING SUPERVISOR [address] [place] [address] PCP - General Nurse Practitioner Primary Care 12/02/23 Phil Patel MD [address] [place] [address] Assigned Surgical Provider 05/26/21 [place] [address] [place] [address] Assigned Musculoskeletal Provider 10/11/22 Phil Patel MD [address] [place] [address] Urology 03/04/23 Dee Weiss MD [address] [place], [place] [address] Nephrology 10/30/23 Trang Michele MD [address] [place], [place] [address] Assigned Nephrology Provider 04/06/24 Rosa Moreau APRN FLAME CUTTING SUPERVISOR [address] [place] [address] Assigned PCP 05/07/24
--- OUTSIDE RECORDS SUMMARY | 2024-06-17 07:26 | XMS_ITS | Encounter Summary ---
Author Organization [place] Address [address] [place] [address]. [place] [address] Care Team Providers Care Poultry Process Worker Name Role Phone Jimenez Parks MD Unavailable [phone] hPil Patel MD Unavailable [phone] Moe Amezcua MD Unavailable Phil Patel MD Unavailable Dee Weiss MD Unavailable [phone] Rosa Moreau APRN SPECIAL WEAPONS AND TACTICS OFFICER Primary Care Provider [phone] Trang Michele MD Unavailable Reason for Visit * Reason Onset Date Comments Medication Question 05/03/2024 Encounter Details Date Type Department Care Team (Late st Contact Info) Description 05/03/[address] [address] Rosa Moreau APRN [facility] [id number] [place] [address] Medication Question Social History Tobacco Use Types Packs/Day Years [...] re latives? Once a week 05/02/2024 Attends Buddhism Services Not on file 05/02 Active Member of Clubs or Organizations Not on f ile 05/02/2024 Attends Club or Organization Meetings Not on elaine e 05/02/2024 Marital Status Not on file 05/02/2024 PHQ-2 Answer Date Recorded PHQ-2 Score 0 05/02/2024 [facility] [place] of Occupat ional Health - Occupational Stress [...] Answer Date Recorded Do you have housing? (Rupertoin g is defined as stable permanent housing and does not include staying ouside in a car, in a tent, in an abandoned building, in an overnight care home, or couch-surfing.) Yes 05/02/2024 Are you worried [...] AM CDT Legal Sex Male 3:31 AM WIRE WINDER Gender Identity Male 02/13/2021 11:50 AM CDT Sexual Orientation Bisexual 02/13/2021 11 :52 AM CDT documented as of this encounter Miscellaneous Notes * Telephone Encounter - Mihaela Guillory RN - 05/03/2024 2:41 PM WIRE WINDER Called pt and relayed provider message below. Patient was given an opportunity to ask questions, verbalized understanding of plan, and is agreeable. Pt's appointment is on Thursday. 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 He denies fever or chills and agrees to head to ER if any develop. Mihaela Richard RN WINDER * Telephone Encounter - Rosa Moreau APRN CNP - 05/03/2024 1:02 PM WIRE WINDER He was referred to outside heme/onc clinic so appt wouldn't show up in our system. If appt is within the next 2 days he can hold off, otherwise I would continue the doxy for presumed bacterial sinusitis. Emphasize he needs to go to ER immediately if he develops fevers or chills. Here is info below if he needs to call to initiate scheduling Hematology & Oncology Contact: [facility] [address] [phone] WINDER * Telephone Encounter - Mihaela Guillory RN - 05/03/2024 12:49 PM WIRE WINDER Rosa Moreau APRN, it appears pt has not been scheduled with hematology yet (see below) Heme/onc consulted, new patient coordinator will reach out to him tomorrow to arrange for early outpatient appointment, will require bone marrow biopsy. This was discussed with patient, as was the option for admission for inpatient hem/onc consult; patient prefers to go home, was advised to quarantine, and return if he develops a fever or any other new symptoms of concern. Routing to PCP to review and advise. Mihaela Richard RN WINDER * Telephone Encounter - Rosa Moreau APRN CNP - 05/03/2024 12:44 PM WIRE WINDER When is he seeing heme/onc? Rosa Moreau APRN, SPECIAL WEAPONS AND TACTICS OFFICER WINDER * Telephone Encounter - Hansa Schwartz RN - 05/03/2024 12:41 PM WIRE WINDER Patient calling. Was to ER. Wondering if he is to take doxycycline you gave for sinus or wait til he sees hematology/oncology? Please advise. Hansa Schwartz RN 05/02/2024 (3 hours) [facility] Emergency Dept Solis Cardoso is a 83 year old [...] symptoms of concern. DDx includes myelodysplasia, malignancy. Scribe Disclosure: Ammy, Rodrigo Guerrero, am serving as a scribe at 6:12 PM on 05/02/2024 to document services personally performed by Jimenez Dao MD based on my observations and the provider's statements to me. Jimenez Dao MD 05/02/24 2301 WINDER documented in this encounter Plan of Treatment Upcoming Encounters Date Type Department Care Team (Late st Contact Info) Description 03/15/2025 11:30 AM CDT Office Visit [facility] Specialty [facility] [address] [place] [address] [address] [place] [id number] Trang Michele MD [address] [place] [address] documented as of this encounter Visit Diagnoses Not on filedocumented in this encounter Additional Health Concerns Assessment Noted Time PHQ-9 Depression Total Score: 0 01/02/20 18 7:00 AM CDT documented as of this encounter Care Teams Poultry Process Worker Relationship Specialty Start Date End Date Rosa Moreau APRN SPECIAL WEAPONS AND TACTICS OFFICER [address] [place] [address] PCP - General Nurse Practitioner Primary Care 12/02/23 [place] [address] [place] [address] Assigned PCP 06/21/17 05/06/24 Phil Patel MD [address] [address] Assigned Surgical Provider 05/26/21 [place] [address] [place] [address] Assigned Musculoskeletal Provider 10/11/22 Phil Patel MD [address] [address] Urology 03/04/23 Dee Weiss MD [address] [place], [place] [address] Nephrology 10/30/23 Trang Michele MD [address] [place], [place] [address] Assigned Nephrology Provider 04/06/24 documented as of this encounter
--- OUTSIDE RECORDS SUMMARY | 2024-06-17 07:26 | XMS_ITS | Encounter Summary ---
Author Organization [place] Address [address] [place] [address] Care Team Providers Care Medical Research Scientist Name Role Phone Jimenez Parks MD Unavailable [phone] Janis Gómez MD Unavailable [phone] Phil Patel MD Unavailable [phone] Moe Amezcua MD Unavailable Phil Patel MD Unavailable Dee Weiss MD Unavailable Rosa Moreau APRN SPA ATTENDANT Primary Care Provider [phone] Trang Michele MD Unavailable Rosa Moreau APRN SPA ATTENDANT Unavailable Encounter Details Date Type Department Care Team (Late st Contact Info) Description 03/10/[address] 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 [place] [address] [facility] [address] [place] [phone] Trang Michele MD [address] [place] [id number] documented as of this encounter Visit Diagnoses Not on filedocumented in this encounter Additional Health Concerns Assessment Noted Time PHQ-9 Depression Total Score: 0 01/02/20 18 7:00 AM CDT documented as of this encounter Care Teams Medical Research Scientist Relationship Specialty Start Date End Date Rosa Moreau APRN SPA ATTENDANT [address] [place] [address] PCP - General Nurse Practitioner Primary Care 12/02/23 [place] [address] [place] [address] Assigned PCP 06/21/17 05/06/24 Janis Gó[place] [address] [place] [address] Assigned Nephrology Provider 02/24/21 04/05/24 Phil Patel MD [address] [facility] [place] [address] Assigned Surgical Provider 05/26/21 [place] [address] [place] [address] Assigned Musculoskeletal Provider 10/11/22 Phil Patel MD [address] [place] [address] Urology 03/04/23 Dee Weiss MD [address] [place] [address] Nephrology 10/30/23 Trang Michele MD [address] [place] [address] Assigned Nephrology Provider 04/06/24 Rosa Moreau APRN SPA ATTENDANT [address] [place] [address] Assigned PCP 05/07/24 documented as of this encounter
--- OUTSIDE RECORDS SUMMARY | 2024-06-17 07:26 | XMS_ITS | Encounter Summary ---
Author Organization [place] Address [address] [place] [address]. [place] [address] Care Team Providers Care Phosphoric Acid Supervisor Name Role Phone Jimenez Parks MD Unavailable [phone] Phil Patel MD Unavailable [phone] Moe Amezcua MD Unavailable Phil Patel MD Unavailable [phone] Dee Weiss MD Unavailable Rosa Moreau APRN URBAN DESIGNER Primary Care Provider [phone] Trang Michele MD Unavailable Reason for Visit * Reason Comments Physical Encounter Details Date Type Department Care Team (Late st Contact Info) Description 05/02/2024 9:30 AM BUTTONHOLE FACER Office Visit [address] [phone] Rosa Moreau APRN URBAN DESIGNER [id number] [place] [id number] Encounter for Medicare annual wellness exam (Primary Dx); Stage 3a chronic kidney disease (H); 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 Once a week 05/02/2024 Attends Nondenominational Services Not on file 05/02 Active Member of Clubs or Organizations Not on f ile 05/02/2024 Attends Club or Organization Meetings Not on elaine e 05/02/2024 Marital Status Not on file 05/02/2024 PHQ-2 Answer Date Recorded PHQ-2 Score 0 05/02/2024 [facility] Occupat ional Health - Occupational Stress [...] Answer Date Recorded Do you have housing? (Rupertokhurram g is defined as stable permanent housing and does not include staying ouside in a car, in a tent, in an abandoned building, in an overnight long-term, or couch-surfing.) Yes 05/02/2024 Are you worried [...] AM CDT Legal Sex Male 3:31 AM BUTTONHOLE FACER Gender Identity Male 02/13/2021 11:50 AM CDT Sexual Orientation Bisexual 02/13/2021 11 :52 AM CDT documented as of this encounter Last Filed Vital Signs Vital Sign Reading Time Taken Comments Blood Pressure 128/67 05/02/2024 9:04 AM BUTTONHOLE FACER Pulse 61 05/02/2024 9:04 AM BUTTONHOLE FACER Temperature 36.7 C (98.1 F) 05/02/2024 9:04 AM BUTTONHOLE FACER Respiratory Rate 15 05/02/2024 9:04 AM BUTTONHOLE FACER Oxygen Saturation 98% 05/02/2024 9:04 AM BUTTONHOLE FACER Inhaled Oxygen Concentration - - Weight 92.1 kg (203 lb) 05/02/2024 9:04 AM BUTTONHOLE FACER Height 182.9 cm (6') 05/02/2024 9:04 AM BUTTONHOLE FACER Body Mass Index 27.53 05/02/2024 9:04 AM BUTTONHOLE FACER documented in this encounter Patient Instructions * Patient Instructions* Rosa Moreau APRN URBAN DESIGNER - 05/02/2024 9:30 AM BUTTONHOLE FACER Images from the original note were not included. Start taking allergy meds consistently - flonase nasal spray daily If you are unable to get in with your Primary Care Provider (PCP) for a concern or refills within atimely manner, I recommend you try and schedule with any of the following providers who can typically get people in within 1-2 days: BJORN Cheek PA Andrea Bruns, PA Call the clinic to schedule with them [facility] phone number: Ask for care team Patient Education Preventive Care Advice This is general advice given by our system to help you stay healthy. However, your care team may have specific advice just for you. Please talk to your care team about your preventive care needs. Nutrition Eat 5 or more servings of fruits and vegetables each day. Try wheat bread, brown rice and whole grain pasta (instead of white bread, rice, and pasta). Get enough calcium and vitamin D. Check the label on foods and aim for 100% of the [employer] (recommendeddaily allowance). Lifestyle Exercise at least 150 minutes each week (30 minutes a day, 5 days a week). Do muscle strengthening activities 2 days a week. These help control your weight and prevent disease. No smoking. Wear sunscreen to prevent skin cancer. Have a dental exam and cleaning every 6 months. Yearly exams See your health care team every year to talk about: Any changes in your health. Any medicines your care team has prescribed. Preventive care, family planning, and ways to prevent chronic diseases. Shots (vaccines) HPV shots (up to age 26), if you've never had them before. Hepatitis B shots (up to age 59), if you've never had them before. COVID-19 shot: Get this shot when it's due. Flu shot: Get a flu shot every year. Tetanus shot: Get a tetanus shot every 10 years. Pneumococcal, hepatitis A, and RSV shots: Ask your care team if you need these based on your risk. Shingles shot (for age 50 and up) General health tests Diabetes screening: Starting at age 35, Get screened for diabetes at least every 3 years. If you are younger than age 35, ask your care team if you should be screened for diabetes. Cholesterol test: At age 39, start having a cholesterol test every 5 years, or more often if advised. Bone density scan (DEXA): At age 50, ask your care team if you should have this scan for osteoporosis (brittle bones). Hepatitis C: Get tested at least once in your life. STIs (sexually transmitted infections) Before age 24: Ask your care team if you should be screened for STIs. After age 24: Get screened for STIs if you're at risk. You are at risk for STIs (including HIV) if: You are sexually active with more than one person. You don't use condoms every time. You or a partner was diagnosed with a sexually transmitted infection. If you are at risk for HIV, ask about PrEP medicine to prevent HIV. Get tested for HIV at least once in your life, whether you are at risk for HIV or not. Cancer screening tests Cervical cancer screening: If you have a cervix, begin getting regular cervical cancer screening tests starting at age 21. Breast cancer scan (mammogram): If you've ever had breasts, begin having regular mammograms starting at age 40. This is a scan to check for breast cancer. Colon cancer screening: It is important to start screening for colon cancer at age 45. Have a colonoscopy test every 10 years (or more often if you're at risk) Or, ask your provider about stool tests like a FIT test every year or Cologuard test every 3 years. To learn more about your testing options, visit: . For help making a decision, visit: https://bit.ly/bp70403. Prostate cancer screening test: If you have a prostate, ask your care team if a prostate cancer screening test (PSA) at age 55 is right for you. Lung cancer screening: If you are a current or former smoker ages 50 to 80, ask your care team if ongoing lung cancer screenings are right for you. For informational purposes only. Not to replace the advice of your health care provider. Copyright ?? 2022 [employer]. All rights reserved. Clinically reviewed by the [employer] [place] [facility]. [employer] 189252 - REV 07/08. Preventing Falls: Care Instructions Injuries and health problems such as trouble walking or poor eyesight can increase your risk of falling. So can some medicines. But there are things you can do to help prevent falls. You can exerciseto get stronger. You can also arrange your home to make it safer. Talk to your doctor about the medicines you take. Ask if any of them increase the risk of falls andwhether they can be changed or stopped. Try to exercise regularly. It can help improve your strength and balance. This can help lower your risk of falling. Practice fall safety and prevention. Wear low-heeled shoes that fit well and give your feet good support. Talk to your doctor if you have foot problems that make this hard. Carry a cellphone or wear a medical alert device that you can use to call for help. Use stepladders instead of chairs to reach high objects. Don't climb if you're at risk for falls. Ask for help, if needed. Wear the correct eyeglasses, if you need them. Make your home safer. Remove rugs, cords, clutter, and furniture from walkways. Keep your house well lit. Use night-lights in hallways and bathrooms. Install and use sturdy handrails on stairways. Wear nonskid footwear, even inside. Don't walk barefoot or in socks without shoes. Be safe outside. Use handrails, curb cuts, and ramps whenever possible. Keep your hands free by using a shoulder bag or backpack. Try to walk in well-lit areas. Watch out for uneven ground, changes in pavement, and debris. Be careful in the winter. Walk on the grass or gravel when sidewalks are slippery. Use de-icer on steps and walkways. Add non-slip devices to shoes. Put grab bars and nonskid mats in your shower or tub and near the toilet. Try to use a shower chairor bath bench when bathing. Get into a tub or shower by putting in your weaker leg first. Get out with your strong side first. Have a phone or medical alert device in the bathroom with you. Where can you learn more? Go to https://www.[employer].net/patiented Enter G117 in the search box to learn more about Preventing Falls: Care Instructions. Current as of: December 29, 2022 Content Version: 14.2 ?? 2023 [facility] [employer]. Care instructions adapted under license by your healthcare professional. If you have questions about a medical condition or this instruction, always ask your healthcare professional. [employer] disclaims any warranty or liability for your use of this information. Learning About Stress What is stress? Stress is your body's response to a hard situation. Your body can have a physical, emotional, or mental response. Stress is a fact of life for most people, and it affects everyone differently. What causes stress for you may not be stressful for someone else. A lot of things can cause stress. You may feel stress when you go on a job interview, take a test, or run a race. This kind of short-term stress is normal and even useful. It can help you if you needto work hard or react quickly. For example, stress can help you finish an important job on time. Long-term stress is caused by ongoing stressful situations or events. Examples of long-term stress include long-term health problems, ongoing problems at work, or conflicts in your family. Long-term stress can harm your health. How does stress affect your health? When you are stressed, your body responds as though you are in danger. It makes hormones that speedup your heart, make you breathe faster, and give you a burst of energy. This is called the gyrxd-yw-udnfsk stress response. If the stress is over quickly, your body goes back to normal and no harm isdone. But if stress happens too often or lasts too long, it can have bad effects. Long-term stress can make you more likely to get sick, and it can make symptoms of some diseases worse. If you tense up when you are stressed, you may develop neck, shoulder, or low back pain. Stress is linked to high bloodpressure and heart disease. Stress also harms your emotional health. It can make you falk, tense, or depressed. Your relationships may suffer, and you may not do well at work or school. What can you do to manage stress? You can try these things to help manage stress: Do something active. Exercise or activity can help reduce stress. Walking is a great way to get started. Even everyday activities such as housecleaning or yard work can help. Try yoga or mariama chi. These techniques combine exercise and meditation. You may need some training at first to learn them. Do something you enjoy. For example, listen to music or go to a movie. Practice your hobby or do volunteer work. Meditate. This can help you relax, because you are not worrying about what happened before or what may happen in the future. Do guided imagery. Imagine yourself in any setting that helps you feel calm. You can use online videos, books, or a teacher to guide you. Do breathing exercises. For example: From a standing position, bend forward from the waist with your knees slightly bent. Let your arms dangle close to the floor. Breathe in slowly and deeply as you return to a standing position. Roll up slowly and lift your head last. Hold your breath for just a few seconds in the standing position. Breathe out slowly and bend forward from the waist. Let your feelings out. Talk, laugh, cry, and express anger when you need to. Talking with supportive friends or family, a counselor, or a justice leader about your feelings is a healthy way to relieve stress. Avoid discussing your feelings with people who make you feel worse. Write. It may help to write about things that are bothering you. This helps you find out how much stress you feel and what is causing it. When you know this, you can find better ways to cope. What can you do to prevent stress? You might try some of these things to help prevent stress: Manage your time. This helps you find time to do the things you want and need to do. Get enough sleep. Your body recovers from the stresses of the day while you are sleeping. Get support. Your family, friends, and community can make a difference in how you experience stress. Limit your news feed. Avoid or limit time on social media or news that may make you feel stressed. Do something active. Exercise or activity can help reduce stress. Walking is a great way to get started. Where can you learn more? Go to https://www.[employer].net/patiented Enter N032 in the search box to learn more about Learning About Stress. Current as of: April 07, 2023 Content Version: 14.2 ?? 2023 [employer]. Care instructions adapted under license by your healthcare professional. If you have questions about a medical condition or this instruction, always ask your healthcare professional. [employer] disclaims any warranty or liability for your use of this information. Learning About Sleeping Well What does sleeping well mean? Sleeping well means getting enough sleep to feel good and stay healthy. How much sleep is enough varies among people. The number of hours you sleep and how you feel when you wake up are both important. If you do not feel refreshed, you probably need more sleep. Another sign of not getting enough sleep is feeling tired during the day. Experts recommend that adults get at least 7 or more hours of sleep per day. Children and older adults need more sleep. Why is getting enough sleep important? Getting enough quality sleep is a basic part of good health. When your sleep suffers, your physicalhealth, mood, and your thoughts can suffer too. You may find yourself feeling more grumpy or stressed. Not getting enough sleep also can lead to serious problems, including injury, accidents, anxiety, and depression. What might cause poor sleeping? Many things can cause sleep problems, including: Changes to your sleep schedule. Stress. Stress can be caused by fear about a single event, such as giving a speech. Or you may haveongoing stress, such as worry about work or school. Depression, anxiety, and other mental or emotional conditions. Changes in your sleep habits or surroundings. This includes changes that happen where you sleep, such as noise, light, or sleeping in a different bed. It also includes changes in your sleep pattern, such as having jet lag or working a late shift. Health problems, such as pain, breathing problems, and restless legs syndrome. Lack of regular exercise. Using alcohol, nicotine, or caffeine before bed. How can you help yourself? Here are some tips that may help you sleep more soundly and wake up feeling more refreshed. Your sleeping area Use your bedroom only for sleeping and sex. A bit of light reading may help you fall asleep. But ifit doesn't, do your reading elsewhere in the house. Try not to use your TV, computer, smartphone, or tablet while you are in bed. Be sure your bed is big enough to stretch out comfortably, especially if you have a sleep partner. Keep your bedroom quiet, dark, and cool. Use curtains, blinds, or a sleep mask to block out light. To block out noise, use earplugs, soothing music, or a white noise machine. Your evening and bedtime routine Create a relaxing bedtime routine. You might want to take a warm shower or bath, or listen to soothing music. Go to bed at the same time every night. And get up at the same time every morning, even if you feeltired. What to avoid Limit caffeine (coffee, tea, caffeinated sodas) during the day, and don't have any for at least 6 hours before bedtime. Avoid drinking alcohol before bedtime. Alcohol can cause you to wake up more often during the night. Try not to smoke or use tobacco, especially in the evening. Nicotine can keep you awake. Limit naps during the day, especially close to bedtime. Avoid lying in bed awake for too long. If you can't fall asleep or if you wake up in the middle of the night and can't get back to sleep within about 20 minutes, get out of bed and go to another roomuntil you feel sleepy. Avoid taking medicine right before bed that may keep you awake or make you feel hyper or energized.Your doctor can tell you if your medicine may do this and if you can take it earlier in the day. If you can't sleep Imagine yourself in a peaceful, pleasant scene. Focus on the details and feelings of being in a place that is relaxing. Get up and do a quiet or boring activity until you feel sleepy. Avoid drinking any liquids before going to bed to help prevent waking up often to use the bathroom. Where can you learn more? Go to https://www.[employer].net/patiented Enter J942 in the search box to learn more about Learning About Sleeping Well. Current as of: December 22, 2022 Content Version: 14.2 ?? 2023 [facility] [employer]. Care instructions adapted under license by your healthcare professional. If you have questions about a medical condition or this instruction, always ask your healthcare professional. [employer] disclaims any warranty or liability for your use of this information. Substance Use Disorder: Care Instructions Overview You can improve your life and health by stopping your use of alcohol or drugs. When you don't drinkor use drugs, you may feel and sleep better. You may get along better with your family, friends, and coworkers. There are medicines and programs that can help with substance use disorder. How can you care for yourself at home? Here are some ways to help you stay sober and prevent relapse. If you have been given medicine to help keep you sober or reduce your cravings, be sure to take it exactly as prescribed. Talk to your doctor about programs that can help you stop using drugs or drinking alcohol. Do not keep alcohol or drugs in your home. Plan ahead. Think about what you'll say if other people ask you to drink or use drugs. Try not to spend time with people who drink or use drugs. Use the time and money spent on drinking or drugs to do something that's important to you. Preventing a relapse Have a plan to deal with relapse. Learn to recognize changes in your thinking that lead you to drink or use drugs. Get help before you start to drink or use drugs again. Try to stay away from situations, friends, or places that may lead you to drink or use drugs. If you feel the need to drink alcohol or use drugs again, seek help right away. Call a trusted friend or family member. Some people get support from organizations such as Narcotics Anonymous or [employer] or from treatment facilities. If you relapse, get help as soon as you can. Some people make a plan with another person that outlines what they want that person to do for them if they relapse. The plan usually includes how to handle the relapse and who to notify in case of relapse. Don't give up. Remember that a relapse doesn't mean that you have failed. Use the experience to learn the triggers that lead you to drink or use drugs. Then quit again. Recovery is a lifelong process. Many people have several relapses before they are able to quit for good. Follow-up care is a aguilar part of your treatment and safety. Be sure to make and go to all appointments, and call your doctor if you are having problems. It's also a good idea to know your test resultsand keep a list of the medicines you take. When should you call for help? Call 911 anytime you think you may need emergency care. For example, call if you or someone else: Has overdosed or has withdrawal signs. Be sure to tell the emergency workers that you are or someone else is using or trying to quit using drugs. Overdose or withdrawal signs may include: Losing consciousness. Seizure. Seeing or hearing things that aren't there (hallucinations). Is thinking or talking about suicide or harming others. Where to get help 24 hours a day, 7 days a week If you or someone you know talks about suicide, self-harm, a mental health crisis, a substance use crisis, or any other kind of emotional distress, get help right away. You can: Call the Suicide and Crisis Lifeline at 395. Call 7-735-749-TALK ( ). Text HOME to 982748 to access the Crisis Text Line. Consider saving these numbers in your phone. Go to [employer] for more information or to chat online. Call your doctor now or seek immediate medical care if: You are having withdrawal symptoms. These may include nausea or vomiting, sweating, shakiness, and anxiety. Watch closely for changes in your health, and be sure to contact your doctor if: You have a relapse. You need more help or support to stop. Where can you learn more? Go to https://www.healthwise.net/patiented Enter H573 in the search box to learn more about Substance Use Disorder: Care Instructions. Current as of: April 29, 2023 Content Version: 14.2 ?? 2023 [facility] [employer]. Care instructions adapted under license by your healthcare professional. If you have questions about a medical condition or this instruction, always ask your healthcare professional. [employer] disclaims any warranty or liability for your use of this information. ONHOLE FACER ONHOLE FACER ONHOLE FACER ONHOLE FACER documented in this encounter Progress Notes * Rosa Moreau APRN CNP - 05/02/2024 9:30 AM CST Images from the original note were not included. 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 Given hx cancer and recent sepsis, recommend ER for immediate evaluation. - Basic metabolic panel (Ca, Cl, CO2, Creat, Gluc, K, Na, BUN); Future - Basic metabolic panel (Ca, Cl, CO2, Creat, Gluc, K, Na, BUN) - CBC with Platelets & Differential; Future - CBC with Platelets & Differential Essential hypertension Stable, refilled - losartan (COZAAR) 25 MG tablet; Take 1 tablet (25 mg) by mouth daily. Subacute frontal sinusitis Suspect component of allergies and possibly sinusitis. Given length of symptoms and pressure will treat as bacterial with doxy due to PCN allergy. - doxycycline monohydrate (ADOXA) 100 MG tablet; Take 2 tablets (200 mg) by mouth daily for 5 days. Seasonal allergic rhinitis, unspecified trigger Recommend routine, daily use of flonase. Likely contributing to rhinitis, congestion, cough, and possibly nausea due to post-nasal drip. - fluticasone (FLONASE) 50 MCG/ACT nasal spray; [place] 1 spray into both nostrils daily. Need for influenza vaccination - INFLUENZA HIGH DOSE, TRIVALENT, PF (FLUZONE) Need for COVID-19 vaccine - COVID-19 12+ (PFIZER) Counseling Appropriate preventive services were addressed with this patient via screening, questionnaire, or discussion as appropriate for fall prevention, nutrition, physical activity, Tobacco-use cessation, social engagement, weight loss and cognition. Checklist reviewing preventive services available has been given to the patient. Reviewed patient's diet, addressing concerns and/or questions. He is at risk for psychosocial distress and has been provided with information to reduce risk. Discussed possible causes of fatigue. Miguel Ely is a 83 year old, presenting for the following: Physical 05/02/2024 9:03 AM Additional Questions Accompanied by - HPI Hx of radiation that leaked and went up nose Waking up feeling congested lately - also having postnasal drip. Has been going on for months - since about Feb No fevers, chills Head congested, some dizziness with this Having cough - white, thick, productive cough No SOB without activity. Some SOB with activity - unchanged. Has ENT appt in May, has not seen in about 3 months. Goes to [facility] Allergies - taking flonase occasionally but not consistently Normal appetite Sometimes nausea with eating No abdominal pain, vomiting, diarrhea or constipation HTN - checks BP at home and has been running 115/60's, HR 60's. Denies dizziness/lightheadedness. No CP or palpitations Health Care Directive Patient does not have a Health Care Directive: Patient states has Advance Directive and will bring in a copy to clinic. 05/02/2024 General Health How would you rate your overall physical health? (!) FAIR Feel stress (tense, anxious, or unable to sleep) To some extent (!) STRESS CONCERN 05/02/2024 Nutrition Diet: Low salt 05/02/2024 Exercise Days per week of moderate/strenous exercise 0 days Average minutes spent exercising at this level 20 min (!) EXERCISE CONCERN 05/02/2024 Social Factors Frequency of gathering with friends or relatives Once a week Worry food won't last until get money to buy more No Food not last or not have enough money for food? No Do you have housing? (Housing is defined as stable permanent housing and does not include staying ouside in a car, in a tent, in an abandoned building, in an overnight long-term, or couch-surfing.) Yes Are you worried about losing your housing? No Lack of transportation? No Unable to get utilities (heat,electricity)? No 05/02/2024 Fall Risk Fallen 2 or more times in the past year? No No Trouble with walking or balance? Yes Yes Gait Speed Test Interpretation Less than or equal to 5.00 seconds - PASS Patient-reported Multiple values from one day are sorted in reverse-chronological order 05/02/2024 Activities of Daily Living- Home Safety Needs help with the following daily activites None of the above Safety concerns in the home None of the above 05/02/2024 Dental Dentist two times every year? Yes 05/02/2024 Hearing Screening Hearing concerns? None of the above 05/02/2024 Driving Risk Screening Patient/family members have concerns about driving No 05/02/2024 General Alertness/Fatigue Screening Have you been more tired than usual lately? (!) YES 05/02/2024 Urinary Incontinence Screening Bothered by leaking urine in past 6 months No Today's PHQ-2 Score: 05/02/2024 9:02 AM PHQ-2 (??1998 Pfizer) Q1: Little interest or pleasure in doing things 0 Q2: Feeling down, depressed or hopeless 0 PHQ-2 Score 0 Q1: Little interest or pleasure in doing things Not at all Q2: Feeling down, depressed or hopeless Not at all PHQ-2 Score 0 Patient-reported 05/02/2024 Substance Use Alcohol more than 3/day or more than 7/wk No Do you have a current opioid prescription? No How severe/bad is pain from 1 to 10? 0/10 (No Pain) Do you use any other substances recreationally? No (!) PRESCRIPTION DRUGS (!) DECLINE Multiple values from one day are sorted in reverse-chronological order Social History Tobacco Use Smoking status: Former Current packs/day: 0.00 Average packs/day: 0.5 packs/day for 14.0 years (7.0 ttl pk-yrs) Types: Cigarettes Start date: 11/13/1956 Quit date: 11/13/1970 Years since quittin.5 Smokeless tobacco: Never Tobacco comments: Quit 1970 Vaping Use Vaping status: Never Used Substance Use Topics Alcohol use: Yes Comment: rare Drug use: No Reviewed and updated as needed this visit by Provider Tobacco Soc Hx Sexual Activity Past Medical History: Diagnosis Date 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 Snoring 09/23/2022 Stricture and stenosis of esophagus SVT (supraventricular tachycardia) (H) 01/21/2022 Tubular adenoma of colon 10/18/2015 Unspecified hemorrhoids without mention of complication Current providers sharing in care for this patient include: Patient Care Team: Rosa Moreau APRN CNP as PCP - General (Nurse Practitioner Primary Care) Jimenez Parks MD as Assigned PCP Phil Patel MD as Assigned Surgical Provider Moe Amezcua MD as Assigned Musculoskeletal Provider Phil Patel MD as MD (Urology) Dee Weiss MD as MD (Nephrology) Trang Michele MD as Assigned Nephrology Provider The following health maintenance items are reviewed in Epic and correct as of today: Health Maintenance Topic Date Due RSV VACCINE (1 - 1-dose 75+ series) Never done BMP 09/06/2024 A1C 01/27/2025 ANNUAL REVIEW OF HM ORDERS 01/27/2025 MICROALBUMIN 03/09/2025 HEMOGLOBIN 03/09/2025 MEDICARE ANNUAL WELLNESS VISIT 05/02/2025 FALL RISK ASSESSMENT 05/02/2025 DTAP/TDAP/TD IMMUNIZATION (7 - Td or Tdap) 10/27/2026 ADVANCE CARE PLANNING 05/02/2029 PHQ-2 (once per calendar year) Completed INFLUENZA VACCINE Completed Pneumococcal Vaccine: 65+ Years Completed URINALYSIS Completed COVID-19 Vaccine Completed ZOSTER IMMUNIZATION Addressed HPV IMMUNIZATION Aged Out MENINGITIS IMMUNIZATION Aged Out RSV MONOCLONAL ANTIBODY Aged Out LIPID Discontinued Review of Systems Constitutional, HEENT, cardiovascular, pulmonary, GI, , musculoskeletal, neuro, skin, endocrine and psych systems are negative, except as otherwise noted. Objective Exam BP 128/67 (BP Location: Right arm, Patient Position: Sitting, Cuff Size: Adult Large) Pulse 61 Temp 98.1 ??F (36.7 ??C) (Temporal) Resp 15 Ht 1.829 m (6') Wt 92.1 kg (203 lb) SpO2 98% BMI 27.53 kg/m?? Estimated body mass index is 27.53 kg/m?? as calculated from the following: Height as of this encounter: 1.829 m (6'). Weight as of this encounter: 92.1 kg (203 lb). Physical Exam GENERAL: alert and no distress EYES: Eyes grossly normal to inspection, and conjunctivae and sclerae normal HENT: ear canals and TM's normal, nose and mouth without ulcers or lesions. Frontal and maxillary pressure to palpation NECK: no adenopathy, no asymmetry, masses, or scars RESP: lungs clear to auscultation - no rales, rhonchi or wheezes CV: regular rate and rhythm, normal S1 S2, no S3 or S4, no murmur, click or rub, 1+ bilateral pitting edema with some hyperpigmentation ABDOMEN: soft, nontender, no masses and bowel sounds normal MS: no gross musculoskeletal defects noted PSYCH: mentation appears normal, affect normal/bright 05/02/2024 Mini Cog Mini-Cog Not Completed (choose reason) Patient declines Patient declines, there are NO concerns for cognitive deficits. Signed Electronically by: Rosa Moreau APRN URBAN DESIGNER ONHOLE FACER ONHOLE FACER documented in this encounter Plan of Treatment Upcoming Encounters Date Type Department Care Team (Late st Contact Info) Description 03/15/2025 11:30 AM CDT Office Visit [facility] Specialty [address] [address] Trang Michele MD [address] [place], [place] [id number] documented as of this encounter Procedures Procedure Name Priority Date/Time Associated Diagnosis Comments RBC AND PLATELET MORPHOLOGY Routine 05/02/2024 10:02 AM BUTTONHOLE FACER 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) CBC WITH PLATELETS AND DIFFERENTIAL Routine 05/02/2024 10:02 AM BUTTONHOLE FACER 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) CBC WITH PLATELETS & DIFFERENTIAL Routine 05/02/2024 10:02 AM BUTTONHOLE FACER 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) BASIC METABOLIC PANEL Routine 05/02/2024 10:02 AM BUTTONHOLE FACER Stage 3a chronic kidney disease (H) documented in this encounter Results * (ABNORMAL) RBC and Platelet Morphology (05/02/2024 10:02 AM BUTTONHOLE FACER) RBC Morphology Confirmed RBC Indices 05/02/2024 12:09 PM BUTTONHOLE FACER [facility] Platelet Assessment Automated Count Confirmed. Platelet morphology is normal. Automated Count Confirmed. Platelet morphology is normal. LIT 05/02/2024 12:09 PM BUTTONHOLE FACER [facility] Teardrop Cells Slight(A) None Seen LIT 05/02/2024 12:09 PM BUTTONHOLE FACER [facility] Blood BLOOD SPECIMEN / Unknown Venipuncture / Unknown 05/02/2024 10:02 AM BUTTONHOLE FACER 05/02/2024 10:02 AM BUTTONHOLE FACER us Rosa Prieto VALDEZ URBAN DESIGNER LAB - BLOOD ORDERABLES Fin al Result [facility] [address] (1st floor, no room number) [place] [address], [facility] * (ABNORMAL) CBC with platelets and differential (05/02/2024 10:02 AM BUTTONHOLE FACER) WBC Count 1.9(L) 4.0 - 11.0 10e3/uL 05/02/2024 12:09 PM BUTTONHOLE FACER [facility] RBC Count 2.46(L) 4.40 - 5.90 10e6/uL 05/02/2024 12:09 PM BUTTONHOLE FACER [facility] Hemoglobin 9.0(L) 13.3 - 17.7 g/dL 05/02/2024 12:09 PM BUTTONHOLE FACER [facility] Hematocrit 26.8(L) 40.0 - 53.0 % 05/02/2024 12:09 PM BUTTONHOLE FACER [facility] MCV 109(H) 78 - 100 fL 05/02/2024 12:09 PM BUTTONHOLE FACER [facility] MCH 36.6(H) 26.5 - 33.0 pg 05/02/2024 12:09 PM BUTTONHOLE FACER [facility] MCHC 33.6 31.5 - 36.5 g/dL 05/02/2024 12:09 PM BUTTONHOLE FACER [facility] RDW 14.9 10.0 - 15.0 % 05/02/2024 12:09 PM BUTTONHOLE FACER [facility] Platelet Count 95(L) 150 - 450 10e3/uL 05/02/2024 12:09 PM BUTTONHOLE FACER [facility] % Neutrophils 22 % 05/02/2024 12:09 PM BUTTONHOLE FACER [facility] % Lymphocytes 39 % 05/02/2024 12:09 PM BUTTONHOLE FACER [facility] % Monocytes 35 % 05/02/2024 12:09 PM BUTTONHOLE FACER [facility] % Eosinophils 4 % 05/02/2024 12:09 PM BUTTONHOLE FACER [facility] % Basophils 1 % 05/02/2024 12:09 PM BUTTONHOLE FACER [facility] % Immature Granulocytes 1 % 05/02/2024 12:09 PM BUTTONHOLE FACER [facility] NRBCs per 100 WBC 0 <1 /100 024 12:09 PM BUTTONHOLE FACER [facility] Absolute Neutrophils 0.4(LL) 1.6 - 8.3 10e3/uL 05/02/2024 12:09 PM BUTTONHOLE FACER [facility] Absolute Lymphocytes 0.7(L) 0.8 - 5.3 10e3/uL 05/02/2024 12:09 PM BUTTONHOLE FACER [facility] Absolute Monocytes 0.7 0.0 - 1.3 10e3/uL 05/02/2024 12:09 PM BUTTONHOLE FACER [facility] Absolute Eosinophils 0.1 0.0 - 0.7 10e3/uL 05/02/2024 12:09 PM BUTTONHOLE FACER [facility] Absolute Basophils 0.0 0.0 - 0.2 10e3/uL 05/02/2024 12:09 PM BUTTONHOLE FACER [facility] Absolute Immature Granulocytes 0.0 <=0.4 10e3/uL 05/02/2024 12:09 PM BUTTONHOLE FACER [facility] Absolute NRBCs 0.0 10e3/uL 05/02/2024 12:09 PM BUTTONHOLE FACER LABORATORY Blood BLOOD SPECIMEN / Unknown Venipuncture / Unknown 05/02/2024 10:02 AM BUTTONHOLE FACER 05/02/2024 10:02 AM BUTTONHOLE FACER us Rosa Moreau APRN URBAN DESIGNER LAB - BLOOD ORDERABLES Fin al Result LABORATORY [facility] [address] [facility] Lab (1st floor, no room number) [place] [address] * (ABNORMAL) Basic metabolic panel (Ca, Cl, CO2, Creat, Gluc, K, Na, BUN) (05/02/2024 10:02 AM BUTTONHOLE FACER) Sodium 141 135 - 145 mmol/L 05/02/2024 4:50 PM BUTTONHOLE FACER [facility] Potassium 4.4 3.4 - 5.3 mmol/L 05/02/2024 4:50 PM BUTTONHOLE FACER [facility] Chloride 108(H) 98 - 107 mmol/L 05/02/2024 4:50 PM BUTTONHOLE FACER [facility] Carbon Dioxide (CO2) 21(L) 22 - 29 mmol/L 05/02/2024 4:50 PM BUTTONHOLE FACER [facility] Anion Gap 12 7 - 15 mmol/L 05/02/2024 4:50 PM BUTTONHOLE FACER [facility] Urea Nitrogen 28.8(H) 8.0 - 23.0 mg/dL 05/02/2024 4:50 PM BUTTONHOLE FACER [facility] Creatinine 1.50(H) 0.67 - 1.17 mg/dL 05/02/2024 4:50 PM BUTTONHOLE FACER [facility] GFR Estimate 46(L) >60 mL/min/1.7 3m2 05/02/2024 4:50 PM BUTTONHOLE FACER [facility] Comment:eGFR calculated usin 2020 CKD-EPI equation. Calcium 9.3 8.8 - 10.4 mg/dL 05/02/2024 4:50 PM BUTTONHOLE FACER [facility] Comment:Reference intervals for this test were updated on 12/29/2023 to reflect our healthy population more accurately. There may be differences in the flagging of prior results with similar values performed with this method. Those prior results can be interpreted in the context of the updated reference intervals. Glucose 105(H) 70 - 99 mg/dL 05/02/2024 4:50 PM BUTTONHOLE FACER [facility] Blood BLOOD SPECIMEN / Unknown Venipuncture / Unknown 05/02/2024 10:02 AM BUTTONHOLE FACER 05/02/2024 10:02 AM BUTTONHOLE FACER Rosa Moreau APRN, CNP LAB - BLOOD ORDERABLES Fin al Result [facility] [address] [facility] [place] [address], [facility] documented in this encounter Visit Diagnoses Diagnosis Encounter for Medicare annual wellness exam- Primary Routine general medical examination at a health care facility Stage 3a chronic kidney disease (H) 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) Essential hypertension Unspecified essential hypertension Subacute frontal sinusitis Acute frontal sinusitis Seasonal allergic rhinitis, unspecified trigger Need for influenza vaccination Need for prophylactic vaccination and inoculation against influenza Need for COVID-19 vaccine documented in this encounter Additional Health Concerns Assessment Noted Time PHQ-9 Depression Total Score: 0 01/02/20 18 7:00 AM CDT documented as of this encounter Care Teams Phosphoric Acid Supervisor Relationship Specialty Start Date End Date Rosa Moreau APRN CNP [address] [place] [address] PCP - General Nurse Practitioner Primary Care 12/02/23 [place] [address] [place] [address] Assigned PCP 06/21/17 05/06/24 Phil Patel MD [address] [place] [address] Assigned Surgical Provider 05/26/21 [place] [address] [place] [address] Assigned Musculoskeletal Provider 10/11/22 Phil Patel MD [address] [place] [address] Urology 03/04/23 Dee Weiss MD [address] [place] [address] Nephrology 10/30/23 Trang Michele MD [address] [place] [address] Assigned Nephrology Provider 04/06/24 documented as of this encounter
--- OUTSIDE RECORDS SUMMARY | 2024-06-17 07:27 | XMS_ITS | Encounter Summary ---
Author Organization [facility] Address [address] [place] [address] Care Team Providers Care Arboriculture Instructor Name Role Phone Jimenez Parks MD Unavailable Janis Gómez MD Unavailable Phil Patel MD Unavailable Moe Amezcua MD Unavailable Phil Patel MD Unavailable Dee Weiss MD Unavailable Rosa Moreau APRN CARTOGRAPHIC ENGINEER Primary Care Provider [phone] Trang Michele MD Unavailable Rosa Moreau APRN CARTOGRAPHIC ENGINEER Unavailable Encounter Details Date Type Department Care Team (Late st Contact Info) Description 01/02/2024 [facility] Medical Advice [facility] [address] [place] [address] Karen Cullen RN Social History Tobacco Use Types Packs/Day [...] AM CDT Legal Sex Male 3:31 AM HEMATOLOGY NURSE Gender Identity Male 02/13/2021 11:50 AM CDT Sexual Orientation Bisexual 02/13/2021 11 :52 AM CDT documented as of this encounter Plan of Treatment Upcoming Encounters Date Type Department Care Team (Late st Contact Info) Description 03/15/2025 11:30 AM CDT Office Visit [facility] [address] [place] [address] [address] [place] [address] Trang Michele MD [address] [place], [place] [phone] documented as of this encounter Visit Diagnoses Not on filedocumented in this encounter Additional Health Concerns Infection Onset Date Last Indicated Resolved Time Rule Out COVID-19 01/20/2024 01/20/2024 01/20/2024 2:43 AM CDT Rule Out C-difficile 01/20/2024 01/20/2024 024 4:32 PM CDT Assessment Noted Time PHQ-9 Depression Total Score: 0 01/02/20 18 7:00 AM CDT documented as of this encounter Care Teams Arboriculture Instructor Relationship Specialty Start Date End Date Rosa Moreau APRN CARTOGRAPHIC ENGINEER [address] [place] [address] PCP - General Nurse Practitioner Primary Care 12/02/23 [place] [address] [place] [address] Assigned PCP 06/21/17 05/06/24 Jansi Gó[place] [address] [place] [address] Assigned Nephrology Provider 02/24/21 04/05/24 Phil Patel MD [address] [address] Assigned Surgical Provider 05/26/21 [place] [address] [place] [address] Assigned Musculoskeletal Provider 10/11/22 Phil Patel MD [address] [address] Urology 03/04/23 Dee Weiss MD [address] [place] [address] Nephrology 10/30/23 Trang Michele MD [address] [place] [address] Assigned Nephrology Provider 04/06/24 Rosa Moreau APRN CARTOGRAPHIC ENGINEER [address] [place] [address] Assigned PCP 05/07/24 documented as of this encounter
--- OUTSIDE RECORDS SUMMARY | 2024-06-17 07:27 | XMS_ITS | Encounter Summary ---
Author Organization [facility] Address [address] [place] [address]. [place] [address] Care Team Providers Care Triage Licensed Practical Nurse Name Role Phone Jimenez Parks MD Primary Care Provider [phone] Jimenez Parks MD Unavailable [phone] Janis Gómez MD Unavailable [phone] Phil Patel MD Unavailable Kemi Christiansen RN Unavailable Unavailable Moe Amezcua MD Unavailable Phil Patel MD Unavailable Dee Weiss MD Unavailable Rosa Moreau APRN CHILD AND ADOLESCENT PSYCHOLOGIST Primary Care Provider [phone] Trang Michele MD Unavailable Rosa Moreau APRN CHILD AND ADOLESCENT PSYCHOLOGIST Unavailable [phone] Encounter Details Date Type Department Care Team (Late st Contact Info) Description 01/09/2023 [facility] [address] [place] [address] [place] [address] [place] [address] Social History Tobacco Use Types Packs/Day Years Used Date Smoking Tobacco: Former Cigarettes 0.5 14 0 [birth year]/13/1956 - 11/13/1970 Smokeless Tobacco: Never Alcohol Use Standard Drinks/Week Comments Yes 0 (1 standard drink = 0.6 oz pur e alcohol) rare PHQ-2 Answer Date Recorded PHQ-2 Score 0 11/20/2022 Sex and Gender Information Value Date Recorded Sex Assigned at Male 02/13/2021 11:50 AM CDT Legal Sex Male 3:31 AM COMPUTER TECHNICAL SUPPORT SPECIALIST Gender Identity Male 02/13/2021 11:50 AM CDT Sexual Orientation Bisexual 02/13/2021 11 :52 AM CDT COVID-19 Exposure Response Date Recorded In the last 10 days, have yo u been in contact with someone who was confirmed or suspected to have Coronavirus/COVID-19? No / Unsure 12/24/2022 10:19 AM CDT documented as of this encounter Miscellaneous Notes * Telephone Encounter - Deepti Bonilla - 01/09/2023 8:06 AM CDT Reason for Call: Other call back Detailed comments: Abi from [facility] called today and states patient diagnosis Melanoma on right shoulder. Will be treating this with excision. Would also like to send copy of notes to Kasey Chavez at [facility] . Fax number given to them today. Please contact her back. Thank you. Phone Number Patient can be reached at: Other phone number: [phone] * Best Time: any Can we leave a detailed message on this number? YES Call taken on 01/09/2023 at 8:06 AM by Deepti Bonilla documented in this encounter Plan of Treatment Upcoming Encounters Date Type Department Care Team (Late st Contact Info) Description 03/15/2025 11:30 AM CDT Office Visit [facility] [address] [place] [address] Trang Michele MD [address] [place] [id number] documented as of this encounter Visit Diagnoses Not on filedocumented in this encounter Additional Health Concerns Infection Onset Date Last Indicated Resolved Time Rule Out COVID-19 01/20/2024 01/20/2024 01/20/2024 2:43 AM CDT Rule Out C-difficile 01/20/2024 01/20/2024 024 4:32 PM CDT Assessment Noted Time PHQ-9 Depression Total Score: 0 01/02/20 18 7:00 AM CDT documented as of this encounter Care Teams Triage Licensed Practical Nurse Relationship Specialty [place] [address] [place] [address] PCP - General Family Practice 10/03/14 12/01/23 Rosa Moreau APRN CHILD AND ADOLESCENT PSYCHOLOGIST [address] [place] [address] PCP - General Nurse Practitioner Primary Care 12/02/23 [place] [address] [place] [address] Assigned PCP 06/21/17 05/06/24 Janis Gó[place] [address] [place] [address] Assigned Nephrology Provider 02/24/21 04/05/24 Phil Patel MD [address] [place] [address] Assigned Surgical Provider 05/26/21 Kemi Christiansen RN Personal Advocate & Liaison (PAL) 04/22/22 10/13/23 [place] [address] [facility] [place] [place] [address] Assigned Musculoskeletal Provider 10/11/22 Phil Patel MD [address] [place] [address] Urology 03/04/23 Dee Weiss MD [address] [place], [place] [address] Nephrology 10/30/23 Trang Michele MD [address] [place], [place] [address] Assigned Nephrology Provider 04/06/24 Rosa Moreau APRN CHILD AND ADOLESCENT PSYCHOLOGIST [address] [place] [address] Assigned PCP 05/07/24 documented as of this encounter
--- OUTSIDE RECORDS SUMMARY | 2024-06-17 07:27 | XMS_ITS | Encounter Summary ---
Author Organization [facility] Address [address] [place] [address] Care Team Providers Care Maxillofacial Prosthetics Dentist Name Role Phone Jimenez Parks MD Primary Care Provider [phone] Jimenez Parks MD Unavailable [phone] Jains Gómez MD Unavailable Phil Patel MD Unavailable Kemi Christiansen RN Unavailable Unavailable Moe Amezcua MD Unavailable Phil Patel MD Unavailable Dee Weiss MD Unavailable Rosa Moreau APRN INFORMATICS MANAGER Primary Care Provider + [phone] Trang Michele MD Unavailable Rosa Moreau APRN INFORMATICS MANAGER Unavailable [phone] Encounter Details Date Type Department Care Team (Late st Contact Info) Description 02/19/2023 [facility] Adv[facility] [address] [address] Libia Rainey, JASON Social History Tobacco Use Types Packs/Day Years [...] AM CDT Legal Sex Male 3:31 AM SHAPE HAND Gender Identity Male 02/13/2021 11:50 AM CDT Sexual Orientation Bisexual 02/13/2021 11 :52 AM CDT COVID-19 Exposure Response Date Recorded In the last 10 days, have yo u been in contact with someone who was confirmed or suspected to have Coronavirus/COVID-19? No / Unsure 02/20/2023 11:04 AM CDT documented as of this encounter Plan of Treatment Upcoming Encounters Date Type Department Care Team (Late st Contact Info) Description 03/15/2025 11:30 AM CDT Office Visit [facility] Specialty [address] [address] Trang Michele MD [address] [place] [address] documented as of this encounter Visit Diagnoses Not on filedocumented in this encounter Additional Health Concerns Infection Onset Date Last Indicated Resolved Time Rule Out COVID-19 01/20/2024 01/20/2024 01/20/2024 2:43 AM CDT Rule Out C-difficile 01/20/2024 01/20/2024 024 4:32 PM CDT Assessment Noted Time PHQ-9 Depression Total Score: 0 01/02/20 18 7:00 AM CDT documented as of this encounter Care Teams Maxillofacial Prosthetics Dentist Relationship Specialty [place] [address] [place] [address] PCP - General Family Practice 10/03/14 12/01/23 Rosa Moreau APRN INFORMATICS MANAGER [address] [place] [address] PCP - General Nurse Practitioner Primary Care 12/02/23 [place] [address] [place] [address] Assigned PCP 06/21/17 05/06/24 Janis Gó[place] [address] [place] [address] Assigned Nephrology Provider 02/24/21 04/05/24 Phil Patel MD [address] [address] Assigned Surgical Provider 05/26/21 Kemi Christiansen RN Personal Advocate & Liaison (PAL) 04/22/22 10/13/23 [place] [address] [place] [address] Assigned Musculoskeletal Provider 10/11/22 Phil Patel MD [address] [address] Urology 03/04/23 Dee Weiss MD [address] [place] [address] Nephrology 10/30/23 Trang Michele MD [address] [place] [address] Assigned Nephrology Provider 04/06/24 Rosa Moreau APRN CNP [address] [place] [address] Assigned PCP 05/07/24 documented as of this encounter
--- OUTSIDE RECORDS SUMMARY | 2024-06-17 07:27 | XMS_ITS | Encounter Summary ---
Author Organization [place] Address [address] [place] [address] Care Team Providers Care Noodle Press Operator Name Role Phone Jimenez Parks MD Primary Care Provider [phone] Jimenez Parks MD Unavailable [phone] Janis Gómez MD Unavailable [phone] Phil Patel MD Unavailable [phone] Moe Amezcua MD Unavailable Phil Patel MD Unavailable [phone] Dee Weiss MD Unavailable Rosa Moreau APRN TRANSLATOR/INTERPRETER Primary Care Provider [phone] Trang Michele MD Unavailable Rosa Moreau APRN TRANSLATOR/INTERPRETER Unavailable [phone] Encounter Details Date Type Department Care Team (Late st Contact Info) Description 11/06/2023 [facility] Medical Advice [facility] [address] [address] Lorena Mark Social History Tobacco Use Types Packs/Day Years [...] AM CDT 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 Gender Identity Male 02/13/2021 11:50 AM CDT Sexual Orientation Bisexual 02/13/2021 11 :52 AM CDT documented as of this encounter Plan of Treatment Upcoming Encounters Date Type Department Care Team (Late st Contact Info) Description 03/15/2025 11:30 AM CDT Office Visit [facility] [address] [place] [phone] Trang Michele MD 500 [place] [address] documented as of this encounter Visit Diagnoses Not on filedocumented in this encounter Additional Health Concerns Infection Onset Date Last Indicated Resolved Time Rule Out COVID-19 01/20/2024 01/20/2024 01/20/2024 2:43 AM CDT Rule Out C-difficile 01/20/2024 01/20/2024 024 4:32 PM CDT Assessment Noted Time PHQ-9 Depression Total Score: 0 01/02/20 18 7:00 AM CDT documented as of this encounter Care Teams Noodle Press Operator Relationship Specialty [place] [address] [place] [address] PCP - General Family Practice 10/03/14 12/01/23 Rosa Moreau APRN CNP [address] [place] [address] PCP - General Nurse Practitioner Primary Care 12/02/23 [place] [address] [place] [address] Assigned PCP 06/21/17 05/06/24 Janis Gó[place] [address] [place] [address] Assigned Nephrology Provider 02/24/21 04/05/24 Phil Patel MD [address] [place] [address] Assigned Surgical Provider 05/26/21 [place] [address] [place] [address] Assigned Musculoskeletal Provider 10/11/22 Phil Patel MD [address] [place] [address] Urology 03/04/23 Dee Weiss MD 500 [place] [address] Nephrology 10/30/23 Trang Michele MD 500 [place] [address] Assigned Nephrology Provider 04/06/24 Rosa Moreau APRN TRANSLATOR/INTERPRETER [address] [place] [address] Assigned PCP 05/07/24 documented as of this encounter
--- OUTSIDE RECORDS SUMMARY | 2024-06-17 07:27 | XMS_ITS | Encounter Summary ---
Author Organization [place] Address [address] [place] [address] Care Team Providers Care Chocolate Finisher Name Role Phone Jimenez Parks MD Primary Care Provider [phone] Jimenez Parks MD Unavailable [phone] Janis Gómez MD Unavailable [phone] Phil Patel MD Unavailable Moe Amezcua MD Unavailable Phil Patel MD Unavailable Dee Weiss MD Unavailable Rosa Moreau APRN MIDWIFE Primary Care Provider [phone] Trang Michele MD Unavailable Rosa Moreau APRN MIDWIFE Unavailable Encounter Details Date Type Department Care Team (Late st Contact Info) Description 11/12/2023 [facility] [address] [place] [address] Kianna Romo Social History Tobacco Use Types Packs/Day Years [...] AM CDT 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 Gender Identity Male 02/13/2021 11:50 AM CDT Sexual Orientation Bisexual 02/13/2021 11 :52 AM CDT documented as of this encounter Plan of Treatment Upcoming Encounters Date Type Department Care Team (Late st Contact Info) Description 03/15/2025 11:30 AM CDT Office Visit [facility] [address] 200 [place] [address] Trang Michele MD 500 [place] [address] documented as of this encounter Visit Diagnoses Not on filedocumented in this encounter Additional Health Concerns Infection Onset Date Last Indicated Resolved Time Rule Out COVID-19 01/20/2024 01/20/2024 01/20/2024 2:43 AM CDT Rule Out C-difficile 01/20/2024 01/20/2024 024 4:32 PM CDT Assessment Noted Time PHQ-9 Depression Total Score: 0 01/02/20 18 7:00 AM CDT documented as of this encounter Care Teams Chocolate Finisher Relationship Specialty [place] [address] [place] [address] PCP - General Family Practice 10/03/14 12/01/23 Rosa Moreau APRN CNP [address] [place] [address] PCP - General Nurse Practitioner Primary Care 12/02/23 [place] [address] [place] [address] Assigned PCP 06/21/17 05/06/24 Janis Gó[place] [address] [place] [address] Assigned Nephrology Provider 02/24/21 04/05/24 Phil Patel MD [address] [place] [address] Assigned Surgical Provider 05/26/21 [place] [address] [place] [address] Assigned Musculoskeletal Provider 10/11/22 Phil Patel MD [address] [place] [address] Urology 03/04/23 Dee Weiss MD 500 [place] [address] Nephrology 10/30/23 Trang Michele MD 500 [place] [address] Assigned Nephrology Provider 04/06/24 Rosa Moreau APRN MIDWIFE [address] [place] [address] Assigned PCP 05/07/24 documented as of this encounter
--- OUTSIDE RECORDS SUMMARY | 2024-06-17 07:27 | XMS_ITS | Encounter Summary ---
Author Organization [facility] Address [address] [place] [address] Care Team Providers Care Air Bag Curer Name Role Phone Jimenez Parks MD Unavailable [phone] Janis Gómez MD Unavailable Phil Patel MD Unavailable Moe Amezcua MD Unavailable Phil Patel MD Unavailable Dee Weiss MD Unavailable Rosa Moreau APRN AVIONICS SYSTEMS INTEGRATION SPECIALIST Primary Care Provider [phone] Trang Michele MD Unavailable Rosa Moreau APRN AVIONICS SYSTEMS INTEGRATION SPECIALIST Unavailable Encounter Details Date Type Department Care Team (Late st Contact Info) Description 01/04/2024 [facility] [address] [place] [address] Karen Cullen RN Social History [...] AM CDT Legal 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 PERFORMER Gender Identity Male 02/13/2021 11:50 AM CDT Sexual Orientation Bisexual 02/13/2021 11 :52 AM CDT documented as of this encounter Plan of Treatment Upcoming Encounters Date Type Department Care Team (Late st Contact Info) Description 03/15/2025 11:30 AM CDT Office Visit [facility] [place] [address] [place] [address] 200 [place] [address] Trang Michele MD [address] [place], [place] [address] documented as of this encounter Visit Diagnoses Not on filedocumented in this encounter Additional Health Concerns Infection Onset Date Last Indicated Resolved Time Rule Out COVID-19 01/20/2024 01/20/2024 01/20/2024 2:43 AM CDT Rule Out C-difficile 01/20/2024 01/20/2024 024 4:32 PM CDT Assessment Noted Time PHQ-9 Depression Total Score: 0 01/02/20 18 7:00 AM CDT documented as of this encounter Care Teams Air Bag Curer Relationship Specialty Start Date End Date Rosa Moreau APRN AVIONICS SYSTEMS INTEGRATION SPECIALIST [address] [place] [address] PCP - General Nurse Practitioner Primary Care 12/02/23 [place] [address] [place] [address] Assigned PCP 06/21/17 05/06/24 Janis Gó[place] [address] [place] [address] Assigned Nephrology Provider 02/24/21 04/05/24 Phil Patel MD [address] [address] Assigned Surgical Provider 05/26/21 [place] [address] [place] [address] Assigned Musculoskeletal Provider 10/11/22 Phil Patel MD [address] [address] Urology 03/04/23 Dee Weiss MD 500 [place] [address] Nephrology 10/30/23 Trang Michele MD 500 [place] [address] Assigned Nephrology Provider 04/06/24 Rosa Moreau APRN AVIONICS SYSTEMS INTEGRATION SPECIALIST [address] [place] [address] Assigned PCP 05/07/24 documented as of this encounter
--- OUTSIDE RECORDS SUMMARY | 2024-06-17 07:27 | XMS_ITS | Encounter Summary ---
Author Organization [facility] Address [address] [place] [address] Care Team Providers Care Pace Analyst Name Role Phone Jimenez Parks MD Primary Care Provider [phone] Jimenez Parks MD Unavailable [phone] Janis Gómez MD Unavailable Phil Patel MD Unavailable [phone] Kemi Christiansen RN Unavailable Unavailable Moe Amezcua MD Unavailable Phil Patel MD Unavailable [phone] Dee Weiss MD Unavailable [phone] Rosa Moreau APRN RIPENING ROOM OPERATOR Primary Care Provider + [phone] Trang Michele MD Unavailable Rosa Moreau APRN RIPENING ROOM OPERATOR Unavailable Encounter Details Date Type Department Care Team (Late st Contact Info) Description 03/13/2023 [facility] [address] [place] [address] Lizzie Pike Social History Tobacco Use Types Packs/Day Years [...] AM CDT 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 No / Unsure 03/11/2023 7:56 AM CDT documented as of this encounter Plan of Treatment Upcoming Encounters Date Type Department Care Team (Late st Contact Info) Description 03/15/2025 11:30 AM CDT Office Visit [facility] Specialty [address] [address] Trang Michele MD 500 [place], [place] 8[address] documented as of this encounter Visit Diagnoses Not on filedocumented in this encounter Additional Health Concerns Infection Onset Date Last Indicated Resolved Time Rule Out COVID-19 01/20/2024 01/20/2024 01/20/2024 2:43 AM CDT Rule Out C-difficile 01/20/2024 01/20/2024 024 4:32 PM CDT Assessment Noted Time PHQ-9 Depression Total Score: 0 01/02/20 18 7:00 AM CDT documented as of this encounter Care Teams Pace Analyst Relationship Specialty [place] [address] [place], [place] [id number] PCP - General Family Practice 10/03/14 12/01/23 Rosa Moreau APRN RIPENING ROOM OPERATOR [address] [place] [address] PCP - General Nurse Practitioner Primary Care 12/02/23 [place] [address] [place] [address] Assigned PCP 06/21/17 05/06/24 Janis Gó[place] [address] [place] [address] Assigned Nephrology Provider 02/24/21 04/05/24 Phil Patel MD [address] [address] Assigned Surgical Provider 05/26/21 Kemi Christiansen RN Personal Advocate & Liaison (PAL) 04/22/22 10/13/23 [place] [address] [place] [address] Assigned Musculoskeletal Provider 10/11/22 Phil Patel MD [address] [address] Urology 03/04/23 Dee Weiss MD 500 [place] [address] Nephrology 10/30/23 Trang Michele MD 500 [place] [address] Assigned Nephrology Provider 04/06/24 Rosa Moreau APRN RIPENING ROOM OPERATOR [address] [place] [address] Assigned PCP 05/07/24 documented as of this encounter
--- OUTSIDE RECORDS SUMMARY | 2024-06-17 07:27 | XMS_ITS | Encounter Summary ---
Author Organization [facility] Address [address] [place] [address] Care Team Providers Care President Financial Institution Name Role Phone Jimenez Parks MD Primary Care Provider [phone] Jimenez Parks MD Unavailable [phone] Janis Gómez MD Unavailable [phone] Phil Patel MD Unavailable Moe Amezcua MD Unavailable Phil Patel MD Unavailable [phone] Dee Weiss MD Unavailable Rosa Moreau APRN BUTCHER Primary Care Provider [phone] Trang Michele MD Unavailable Rosa Moreau APRN BUTCHER Unavailable [phone] Encounter Details Date Type Department Care Team (Late st Contact Info) Description 10/30/2023 [facility] [address] [address] Lizzie Pike Social History Tobacco Use [...] AM CDT 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 Gender Identity Male 02/13/2021 11:50 AM CDT Sexual Orientation Bisexual 02/13/2021 11 :52 AM CDT documented as of this encounter Plan of Treatment Upcoming Encounters Date Type Department Care Team (Late st Contact Info) Description 03/15/2025 11:30 AM CDT Office Visit [facility] [address] [place] [address] Trang Michele MD 500 [place] [address] documented as of this encounter Visit Diagnoses Not on filedocumented in this encounter Additional Health Concerns Infection Onset Date Last Indicated Resolved Time Rule Out COVID-19 01/20/2024 01/20/2024 01/20/2024 2:43 AM CDT Rule Out C-difficile 01/20/2024 01/20/2024 024 4:32 PM CDT Assessment Noted Time PHQ-9 Depression Total Score: 0 01/02/20 18 7:00 AM CDT documented as of this encounter Care Teams President Financial Institution Relationship Specialty [place] [address] [place] [address] PCP - General Family Practice 10/03/14 12/01/23 Rosa Moreau APRN CNP [address] [place] [address] PCP - General Nurse Practitioner Primary Care 12/02/23 [place] [address] [place] [address] Assigned PCP 06/21/17 05/06/24 Janis Gó[place] [address] [place] [address] Assigned Nephrology Provider 02/24/21 04/05/24 Phil Patel MD [address] [place] [id number] Assigned Surgical Provider 05/26/21 [place] [address] [place] [address] Assigned Musculoskeletal Provider 10/11/22 Phil Patel MD [address] [place] [id number] Urology 03/04/23 Dee Weiss MD 500 [place] [address] Nephrology 10/30/23 Trang Michele MD 500 [place] [address] Assigned Nephrology Provider 04/06/24 Rosa Moreau APRN BUTCHER [address] [place] [address] Assigned PCP 05/07/24 documented as of this encounter
--- OUTSIDE RECORDS SUMMARY | 2024-06-17 07:27 | XMS_ITS | Encounter Summary ---
Author Organization [place] Address [address] [place] [address] Care Team Providers Care Automatic Driller And Reamer Name Role Phone Jimenez Parks MD Unavailable [phone] Janis Gómez MD Unavailable [phone] Phil Patel MD Unavailable Moe Amezcua MD Unavailable Phil Patel MD Unavailable Dee Weiss MD Unavailable [phone] Rosa Moreau APRN CLINICAL SUPPORT SPECIALIST Primary Care Provider [phone] Trang Michele MD Unavailable Rosa Moreau APRN CLINICAL SUPPORT SPECIALIST Unavailable Encounter Details Date Type Department Care Team (Late st Contact Info) Description 01/06/2024 [facility] [place] [facility] [address] [place] [address] Karen Cullen RN Social History [...] AM CDT Legal 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 Gender Identity Male 02/13/2021 11:50 AM CDT Sexual Orientation Bisexual 02/13/2021 11 :52 AM CDT documented as of this encounter Plan of Treatment Upcoming Encounters Date Type Department Care Team (Late st Contact Info) Description 03/15/2025 11:30 AM CDT Office Visit [facility] [place] [address] [place] [address] 200 [place] [address] Trang Michele MD [address] [place], [place] [address] documented as of this encounter Visit Diagnoses Not on filedocumented in this encounter Additional Health Concerns Infection Onset Date Last Indicated Resolved Time Rule Out COVID-19 01/20/2024 01/20/2024 01/20/2024 2:43 AM CDT Rule Out C-difficile 01/20/2024 01/20/2024 024 4:32 PM CDT Assessment Noted Time PHQ-9 Depression Total Score: 0 01/02/20 18 7:00 AM CDT documented as of this encounter Care Teams Automatic Driller And Reamer Relationship Specialty Start Date End Date Rosa Moreau APRN CLINICAL SUPPORT SPECIALIST [address] [place] [address] PCP - General Nurse Practitioner Primary Care 12/02/23 [place] [address] [place] [address] Assigned PCP 06/21/17 05/06/24 Janis Gó[place] [address] [place] [address] Assigned Nephrology Provider 02/24/21 04/05/24 Phil Patel MD [address] [address] Assigned Surgical Provider 05/26/21 [place] [address] [place] [address] Assigned Musculoskeletal Provider 10/11/22 Phil Patel MD [address] [address] Urology 03/04/23 Dee Weiss MD 500 [place] [address] Nephrology 10/30/23 Trang Michele MD 500 [place] [address] Assigned Nephrology Provider 04/06/24 Rosa Moreau APRN CLINICAL SUPPORT SPECIALIST [address] [place] [address] Assigned PCP 05/07/24 documented as of this encounter
--- OUTSIDE RECORDS SUMMARY | 2024-06-17 07:27 | XMS_ITS | Encounter Summary ---
Author Organization [facility] Address [address] [place] [address]. [place] [address] Care Team Providers Care Electronics Inspector Name Role Phone Jimenez Parks MD Unavailable [phone] Janis Gómez MD Unavailable [phone] Phil Patel MD Unavailable Moe Amezcua MD Unavailable Phil Patel MD Unavailable Dee Weiss MD Unavailable Rosa Moreau APRN SPEECH LANGUAGE PATHOLOGIST TRAVEL Primary Care Provider [phone] Trang Michele MD Unavailable Rosa Moreau APRN SPEECH LANGUAGE PATHOLOGIST TRAVEL Unavailable Reason for Visit * Reason Onset Date Comments Update 03/10/2024 Encounter Details Date Type Department Care Team (Late st Contact Info) Description 03/10/2024 Telephone [facility] [address] [place] [address] Rosa Moreau APRN [facility] [id number] [place] [address] Update Social History Tobacco Use Types Packs/Day Years [...] re latives? 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 Not for PCP Trang Michele MD Pt doesn't need a call back. documented in this encounter Plan of Treatment Upcoming Encounters Date Type Department Care Team (Late st Contact Info) Description 03/15/2025 11:30 AM CDT Office Visit [facility] [address] [address] Trang Michele MD [address] [place] [address] documented as of this encounter Visit Diagnoses Not on filedocumented in this encounter Additional Health Concerns Assessment Noted Time PHQ-9 Depression Total Score: 0 01/02/20 18 7:00 AM CDT documented as of this encounter Care Teams Electronics Inspector Relationship Specialty Start Date End Date Rosa Moreau APRN CNP [address] [place], [place] [id number] PCP - General Nurse Practitioner Primary Care 12/02/23 [place] [address] [place] [address] Assigned PCP 06/21/17 05/06/24 Janis Gó[place] [address] [place] [address] Assigned Nephrology Provider 02/24/21 04/05/24 Phil Patel MD [address] [place] [address] Assigned Surgical Provider 05/26/21 [place] [address] [place] [address] Assigned Musculoskeletal Provider 10/11/22 Phil Patel MD [address] [place] [address] Urology 03/04/23 Dee Weiss MD 500 [place] [address] Nephrology 10/30/23 Trang Michele MD 500 [place] [address] Assigned Nephrology Provider 04/06/24 Rosa Moreau APRN SPEECH LANGUAGE PATHOLOGIST TRAVEL [address] [place] [address] Assigned PCP 05/07/24 documented as of this encounter
--- OUTSIDE RECORDS SUMMARY | 2024-06-17 07:28 | XMS_ITS | Encounter Summary ---
Author Organization [facility] Address [address] [place] [address] Care Team Providers Care Spa Director/Finance Name Role Phone Jimenez Parks MD Primary Care Provider [phone] Jimenez Parks MD Unavailable [phone] Omar Stevenson MD Unavailable Janis Gómez MD Unavailable Phil Patel MD Unavailable Diana Boss RN Unavailable Unavailable Lisha Patel RN Unavailable Unavailable Kemi Christiansen RN Unavailable Unavailable Moe Amezcua MD Unavailable Phil Patel MD Unavailable [phone] Dee Weiss MD Unavailable Rosa Moreau APRN BOILERHOUSE MECHANIC Primary Care Provider [phone] Trang Michele MD Unavailable Rosa Moreau APRN BOILERHOUSE MECHANIC Unavailable Reason for Visit * Reason Onset Date Comments Call Back 05/03/2021 wanting KUB and PSA labs Encounter Details Date Type Department Care Team (Late st Contact Info) Description 05/03/[address] [address] Phil Patel MD [address] [facility] [place] [id number] Call Back (wanting KUB and PSA labs) Social History Tobacco Use Types Packs/Day Years Used Date Smoking Tobacco: Former Cigarettes 0.5 14 0 11/13/1956 - 11/13/1970 Smokeless Tobacco: Never Alcohol Use Standard Drinks/Week Comments Yes 0 (1 standard drink = 0.6 oz pur e alcohol) rare PHQ-2 Answer Date Recorded PHQ-2 Score 0 08/17/2020 Sex and Gender Information Value Date Recorded Sex Assigned at Male 02/13/2021 11:50 AM CDT Legal Sex Male 3:31 AM THERAPY AIDE Gender Identity Male 02/13/2021 11:50 AM CDT Sexual Orientation Bisexual 02/13/2021 11 :52 AM CDT COVID-19 Exposure Response Date Recorded In the last month, have you been in contact with someone who was confirmed or suspected to have Coronavirus / COVID-19? No / Unsure 05/02/2021 12:57 PM THERAPY AIDE documented as of this encounter Miscellaneous Notes * Telephone Encounter - Kadi Herrmann - 05/03/2021 1:13 PM CST [facility] Phone Message May a detailed message be left on voicemail: yes Reason for Call: Other: pt called in stating that he would like a KUB and a PSA lab prior to his cysto on 05/23. Please call him back to discuss Action Taken: Message routed to: Other: UA uro Travel Screening: Not Applicable APY AIDE documented in this encounter Plan of Treatment Upcoming Encounters Date Type Department Care Team (Late st Contact Info) Description 03/15/2025 11:30 AM CDT Office Visit [facility] [address] [place] [phone] Trang Michele MD [address] [place], [place] [address] documented as of this encounter Visit Diagnoses Not on filedocumented in this encounter Additional Health Concerns Infection Onset Date Last Indicated Resolved Time Rule Out COVID-19 01/20/2024 01/20/2024 01/20/2024 2:43 AM CDT Rule Out C-difficile 01/20/2024 01/20/2024 024 4:32 PM CDT Assessment Noted Time PHQ-9 Depression Total Score: 0 01/02/20 18 7:00 AM CDT documented as of this encounter Care Teams Spa Director/Finance Relationship Specialty [place] [address] [place] [address] PCP - General Family Practice 10/03/14 12/01/23 Rosa Moreau APRN BOILERHOUSE MECHANIC [address] [place] [address] PCP - General Nurse Practitioner Primary Care 12/02/23 [place] [address] [place], [place] [address] Assigned PCP 06/21/17 05/06/24 Omar Stevenson MD [address] [place] [address] [place] [phone] Assigned Surgical Provider 04/06/20 05/25/21 Janis Gómez MD [address] [place] [address] [place] [address] Assigned Nephrology Provider 02/24/21 04/05/24 Phil Patel MD [address] [place] [address] Assigned Surgical Provider 05/26/21 Diana Boss, ROMAN Personal Advocate & Liaison (PAL) Family Medicine 11/28/21 01/28/22 Lisha Patel RN Personal Advocate & Liaison (PAL) Family Medicine 01/29/22 04/21/22 Kemi Christiansen RN Personal Advocate & Liaison (PAL) 04/22/22 10/13/23 [place] [address] [place] [address] Assigned Musculoskeletal Provider 10/11/22 Phil Patel MD [address] [facility] [place] [address] Urology 03/04/23 Dee Weiss MD 500 [place] [address] Nephrology 10/30/23 Trang Michele MD [address] [place] [address] Assigned Nephrology Provider 04/06/24 Rosa Moreau APRN BOILERHOUSE MECHANIC [address] [place] [address] Assigned PCP 05/07/24 documented as of this encounter
--- OUTSIDE RECORDS SUMMARY | 2024-06-17 07:28 | XMS_ITS | Encounter Summary ---
Author Organization [facility] Address [address] [place] [address] Care Team Providers Care Rectification Printer Name Role Phone Jimenez Parks MD Primary Care Provider [phone] Jimenez Parks MD Unavailable [phone] Janis Gómez MD Unavailable Phil Patel MD Unavailable Kemi Christiansen RN Unavailable Unavailable Moe Amezcua MD Unavailable Phil Patel MD Unavailable [phone] Dee Weiss MD Unavailable Rosa Moreau APRN CONSUMER RECRUITER Primary Care Provider + [phone] Trang Michele MD Unavailable Rosa Moreau APRN CONSUMER RECRUITER Unavailable [phone] Encounter Details Date Type Department Care Team (Late st Contact Info) Description 07/03/2022 [facility] Medical Advice [address] [address] Ghazala Wayne, EXTRACTOR FILLER Social History Tobacco Use Types Packs/Day Years Used Date Smoking Tobacco: Former Cigarettes 0.5 14 0 11/13/1956 - 11/13/1970 Smokeless Tobacco: Never Alcohol Use Standard Drinks/Week Comments Yes 0 (1 standard drink = 0.6 oz pur e alcohol) rare PHQ-2 Answer Date Recorded PHQ-2 Score 0 03/03/2022 Sex and Gender Information Value Date Recorded Sex Assigned at Male 02/13/2021 11:50 AM CDT Legal Sex Male 3:[address] COMMISSIONER Gender Identity Male 02/13/2021 11:50 AM CDT Sexual Orientation Bisexual 02/13/2021 11 :52 AM CDT COVID-19 Exposure Response Date Recorded In the last 10 days, have yo u been in contact with someone who was confirmed or suspected to have Coronavirus/COVID-19? No / Unsure 07/02/2022 9:[address] COMMISSIONER documented as of this encounter Plan of Treatment Upcoming Encounters Date Type Department Care Team (Late st Contact Info) Description 03/15/2025 11:30 AM CDT Office Visit [facility] [address] [address] Trang Michele MD [address] [place] [address] documented as of this encounter Visit Diagnoses Not on filedocumented in this encounter Additional Health Concerns Infection Onset Date Last Indicated Resolved Time Rule Out COVID-19 01/20/2024 01/20/2024 01/20/2024 2:43 AM CDT Rule Out C-difficile 01/20/2024 01/20/2024 024 4:32 PM CDT Assessment Noted Time PHQ-9 Depression Total Score: 0 01/02/20 18 7:00 AM CDT documented as of this encounter Care Teams Rectification Printer Relationship Specialty [place] [address] [place] [address] PCP - General Family Practice 10/03/14 12/01/23 Rosa Moreau APRN CONSUMER RECRUITER [address] [place] [address] PCP - General Nurse Practitioner Primary Care 12/02/23 [place] [address] [place] [address] Assigned PCP 06/21/17 05/06/24 Janis Gó[place] [address] [place] [address] Assigned Nephrology Provider 02/24/21 04/05/24 Phil Patel MD [address] [place] [address] Assigned Surgical Provider 05/26/21 Kemi Christiansen RN Personal Advocate & Liaison (PAL) 04/22/22 10/13/23 [place] [address] [address] Assigned Musculoskeletal Provider 10/11/22 Phli Patel MD [address] [place] [address] Urology 03/04/23 Dee Weiss MD 500 [place] [address] Nephrology 10/30/23 Trang Michele MD [address] [place] [address] Assigned Nephrology Provider 04/06/24 Rosa Moreau APRN CNP [address] [place] [address] Assigned PCP 05/07/24 documented as of this encounter
--- OUTSIDE RECORDS SUMMARY | 2024-06-17 07:28 | XMS_ITS | Encounter Summary ---
Author Organization [facility] Address [address] [place] [address] Care Team Providers Care Lease Buyer Name Role Phone Jimenez Parks MD Primary Care Provider [phone] Jimenez Parks MD Unavailable [phone] Janis Gómez MD Unavailable Phil Patel MD Unavailable Kemi Christiansen RN Unavailable Unavailable Moe mAezcua MD Unavailable Phil Patel MD Unavailable Dee Weiss MD Unavailable Rosa Moreau APRN MOLD YARD WORKER Primary Care Provider + [phone] Trang Michele MD Unavailable Rosa Moraeu APRN MOLD YARD WORKER Unavailable Encounter Details Date Type Department Care Team (Late st Contact Info) Description 09/25/2022 [facility] [place] [address] [facility] [address] [place] [address] [place] [address] [facility] [address] [place] [address] Social History Tobacco Use Types Packs/Day Years [...] AM CDT Legal Sex Male 3:31 AM TECHNOLOGY INFUSION SPECIALIST Gender Identity Male 02/13/2021 11:50 AM CDT Sexual Orientation Bisexual 02/13/2021 11 :52 AM CDT COVID-19 Exposure Response Date Recorded In the last 10 days, have yo u been in contact with someone who was confirmed or suspected to have Coronavirus/COVID-19? No / Unsure 09/25/2022 8:32 AM CDT documented as of this encounter Miscellaneous Notes * Telephone Encounter - Danette Carter - 09/25/2022 9:30 AM CDT Called patient to assist in scheduling appointment with No answer, left message to call back Patient has right hip OA and lumbar DDD, symptoms per PCP note include lumbar radiculopathy. Patient needs to be scheduled for 40 min appointment with Please assist patient in scheduling next available Patricia Carter ATC * Telephone Encounter - Margo Tse - 09/25/2022 8:50 AM CDT Health Call Center Phone Message May a detailed message be left on voicemail: yes Reason for Call: Other: [facility] called he received a voicemail this morning about an opening tomorrow 09/26/22 at 10:25am and he would like that appointment if still available. PLease schedule him for the appointment if available and call to let him know either way. Please leave a message Action Taken: Other: [facility] Travel Screening: Not Applicable documented in this encounter Plan of Treatment Upcoming Encounters Date Type Department Care Team (Late st Contact Info) Description 03/15/2025 11:30 AM CDT Office Visit [facility] [address] [facility] [address] [place] [phone] Trang Michele MD [address] [place] [address] documented as of this encounter Visit Diagnoses Not on filedocumented in this encounter Additional Health Concerns Infection Onset Date Last Indicated Resolved Time Rule Out COVID-19 01/20/2024 01/20/2024 01/20/2024 2:43 AM CDT Rule Out C-difficile 01/20/2024 01/20/2024 024 4:32 PM CDT Assessment Noted Time PHQ-9 Depression Total Score: 0 01/02/20 18 7:00 AM CDT documented as of this encounter Care Teams Lease Buyer Relationship Specialty [place] [address] [place] [address] PCP - General Family Practice 10/03/14 12/01/23 Rosa Moreau APRN CNP [address] [place] [address] PCP - General Nurse Practitioner Primary Care 12/02/23 [place] [address] [place] [address] Assigned PCP 06/21/17 05/06/24 Janis Gó[place] [address] [place] [address] Assigned Nephrology Provider 02/24/21 04/05/24 Phil Patel MD [address] [facility] [place] [address] Assigned Surgical Provider 05/26/21 KuldipKemi, RN Personal Advocate & Liaison (PAL) 04/22/22 10/13/23 [place] [address] [place] [address] Assigned Musculoskeletal Provider 10/11/22 Phil Patel MD [address] [facility] [place] [address] Urology 03/04/23 Dee Weiss MD 500 [place] [address] Nephrology 10/30/23 Trang Micehle MD 500 [place] [address] Assigned Nephrology Provider 04/06/24 Rosa Moreau APRN MOLD YARD WORKER [address] [place] [address] Assigned PCP 05/07/24 documented as of this encounter
--- OUTSIDE RECORDS SUMMARY | 2024-06-17 07:28 | XMS_ITS | Encounter Summary ---
Author Organization [facility] Address [address] [place] [address] Care Team Providers Care Exceptional Children'S Teacher Name Role Phone Jimenez Parks MD Primary Care Provider [phone] Jimenez Parks MD Unavailable [phone] Omar Stevenson MD Unavailable [phone] Janis Gómez MD Unavailable [phone] Phil Patel MD Unavailable Diana oBss RN Unavailable Unavailable Lisha Patel RN Unavailable Unavailable Kemi Christiansen RN Unavailable Unavailable Moe Amezcua MD Unavailable Phil Patel MD Unavailable [phone] Dee Weiss MD Unavailable Rosa Moreau APRN ACID PATROLLER Primary Care Provider [phone] Trang Michele MD Unavailable Rosa Moreau APRN ACID PATROLLER Unavailable Reason for Visit * Reason Onset Date Comments other 05/20/2021 CT urogram Encounter Details Date Type Department Care Team (Late st Contact Info) Description 05/20/2021 [facility] Nephrology [address] [address] Janis Gómez MD [address] [place] [address] other (CT urogram ) Social History Tobacco Use Types Packs/Day Years Used Date Smoking Tobacco: Former Cigarettes 0.5 14 0 11/13/1956 - 11/13/1970 Smokeless Tobacco: Never Alcohol Use Standard Drinks/Week Comments Yes 0 (1 standard drink = 0.6 oz pur e alcohol) rare PHQ-2 Answer Date Recorded PHQ-2 Score 0 05/23/2021 Sex and Gender Information Value Date Recorded Sex Assigned at Male 02/13/2021 11:50 AM CDT Legal Sex Male 3:31 AM CLINICAL QUALITY RN Gender Identity Male 02/13/2021 11:50 AM CDT Sexual Orientation Bisexual 02/13/2021 11 :52 AM CDT COVID-19 Exposure Response Date Recorded In the last month, have you been in contact with someone who was confirmed or suspected to have Coronavirus / COVID-19? No / Unsure 05/23/2021 8:07 AM CLINICAL QUALITY RN documented as of this encounter Miscellaneous Notes * Telephone Encounter - Sophie Montalvo - 05/20/2021 8:38 AM CST [facility] Call Center Phone Message May a detailed message be left on voicemail: yes Reason for Call: Other: . pt is calling to let know he had a CT done on 05/17 and lab workdone on 05/02. FYI only in case wants to view them, thank you Action Taken: Message routed to: [facility] neph Travel Screening: Not Applicable ICAL QUALITY RN documented in this encounter Plan of Treatment Upcoming Encounters Date Type Department Care Team (Late st Contact Info) Description 03/15/2025 11:30 AM CDT Office Visit [facility] Special[facility] [address] [place] [address] Trang Michele MD [address] [place] [address] documented as of this encounter Visit Diagnoses Not on filedocumented in this encounter Additional Health Concerns Infection Onset Date Last Indicated Resolved Time Rule Out COVID-19 01/20/2024 01/20/2024 01/20/2024 2:43 AM CDT Rule Out C-difficile 01/20/2024 01/20/2024 024 4:32 PM CDT Assessment Noted Time PHQ-9 Depression Total Score: 0 01/02/20 18 7:00 AM CDT documented as of this encounter Care Teams Exceptional Children'S Teacher Relationship Specialty [place] [address] [place] [address] PCP - General Family Practice 10/03/14 12/01/23 Rosa Moreau APRN ACID PATROLLER [address] [place] [address] PCP - General Nurse Practitioner Primary Care 12/02/23 [place] [address] [place] [address] Assigned PCP 06/21/17 05/06/24 Omar Stevenson MD [address] [place] [phone] Assigned Surgical Provider 04/06/20 05/25/21 Janis Gómez MD [address] [place] [phone] Assigned Nephrology Provider 02/24/21 04/05/24 Phil Patel MD [address] [place] [address] Assigned Surgical Provider 05/26/21 Diana Boss, ROMAN Personal Advocate & Liaison (PAL) Family Medicine 11/28/21 01/28/22 Lisha Patel RN Personal Advocate & Liaison (PAL) Family Medicine 01/29/22 04/21/22 Kemi Christiansen RN Personal Advocate & Liaison (PAL) 04/22/22 10/13/23 [place] [address] [place] [address] Assigned Musculoskeletal Provider 10/11/22 Phil Patel MD [address] [facility] [place] [address] Urology 03/04/23 Dee Weiss MD [address] [place] [address] Nephrology 10/30/23 Trang Michele MD [address] [place] [address] Assigned Nephrology Provider 04/06/24 Rosa Moreau APRN ACID PATROLLER [address] [place] [address] Assigned PCP 05/07/24 documented as of this encounter
--- OUTSIDE RECORDS SUMMARY | 2024-06-17 07:28 | XMS_ITS | Encounter Summary ---
Author Organization [facility] Address [address] [place] [address]. [place] [address] Care Team Providers Care Commercial Painter Name Role Phone Jimenez Parks MD Primary Care Provider [phone] Jimenez Parks MD Unavailable [phone] Janis Gómez MD Unavailable [phone] Phil Patel MD Unavailable [phone] Diana Boss RN Unavailable Unavailable Lisha Patel RN Unavailable Unavailable KuldipKemi RN Unavailable Unavailable Moe Amezcua MD Unavailable Phil Patel MD Unavailable [phone] Dee Weiss MD Unavailable [phone] Rosa Moreau APRN STEEL PICKLER Primary Care Provider + [phone] Trang Michele MD Unavailable Rosa Moreau APRN STEEL PICKLER Unavailable [phone] Reason for Visit * Reason Onset Date Comments Orders 11/20/2021 Labs and UA Encounter Details Date Type Department Care Team (Late st Contact Info) Description 11/20/[address] [facility] [place] [address] [place] [address] Janis Gómez MD [address] [facility] 300 [place] [address] Orders (Labs and UA) Social History Tobacco Use Types Packs/Day Years Used Date Smoking Tobacco: Former Cigarettes 0.5 14 0 [birth year]/13/1956 - 11/13/1970 Smokeless Tobacco: Never Alcohol Use Standard Drinks/Week Comments Yes 0 (1 standard drink = 0.6 oz pur e alcohol) rare PHQ-2 Answer Date Recorded PHQ-2 Score 0 11/14/2021 Sex and Gender Information Value Date Recorded Sex Assigned at Male 02/13/2021 11:50 AM CDT Legal Sex Male 3:31 AM SOLAR INSTALLER PV Gender Identity Male 02/13/2021 11:50 AM CDT Sexual Orientation Bisexual 02/13/2021 11 :52 AM CDT COVID-19 Exposure Response Date Recorded In the last 10 days, have yo u been in contact with someone who was confirmed or suspected to have Coronavirus/COVID-19? No / Unsure 11/14/2021 8:25 AM CDT documented as of this encounter Miscellaneous Notes * Telephone Encounter - Serene Berry - 11/20/2021 3:19 PM CDT [facility] Call Center Phone Message May a detailed message be left on voicemail: yes Reason for Call: Order(s): Other: Reason for requested: Labs and UA Date needed: 02/13/22 Provider name: Dr Gómez Pt would like to schedule labs at [facility] on 02/19/22 for 11am if possible. Mold Bunch Trimmer is unable to schedule at this location. Pt states Dr Gómez usually schedules these for him. Please schedule apptper pt and he will see in MyChart Action Taken: Message routed to: [facility] Neph Travel Screening: Not Applicable documented in this encounter Plan of Treatment Upcoming Encounters Date Type Department Care Team (Late st Contact Info) Description 03/15/2025 11:30 AM CDT Office Visit [facility] Specialty [address] [place] [phone] Trang Michele MD [address] [place] [address] documented as of this encounter Visit Diagnoses Not on filedocumented in this encounter Additional Health Concerns Infection Onset Date Last Indicated Resolved Time Rule Out COVID-19 01/20/2024 01/20/2024 01/20/2024 2:43 AM CDT Rule Out C-difficile 01/20/2024 01/20/2024 024 4:32 PM CDT Assessment Noted Time PHQ-9 Depression Total Score: 0 01/02/20 18 7:00 AM CDT documented as of this encounter Care Teams Commercial Painter Relationship Specialty [place] [address] [place] [address] PCP - General Family Practice 10/03/14 12/01/23 Rosa Moreau APRN CNP [address] [place] [address] PCP - General Nurse Practitioner Primary Care 12/02/23 [place] [address] [place] [address] Assigned PCP 06/21/17 05/06/24 Janis Gó[place] [address] [place] [address] Assigned Nephrology Provider 02/24/21 04/05/24 Phil Patel MD [address] [facility] [place] [address] Assigned Surgical Provider 05/26/21 Diana Boss RN Personal Advocate & Liaison (PAL) Family Medicine 11/28/21 01/28/22 Lisha Patel RN Personal Advocate & Liaison (PAL) Family Medicine 01/29/22 04/21/22 Kemi Christiansen RN Personal Advocate & Liaison (PAL) 04/22/22 10/13/23 [place] [address] [place] [address] Assigned Musculoskeletal Provider 10/11/22 Phil Patel MD [address] [place] [address] Urology 03/04/23 Dee Weiss MD 500 [place] [address] Nephrology 10/30/23 Trang Michele MD 500 [place] [address] Assigned Nephrology Provider 04/06/24 Rosa Moreau APRN STEEL PICKLER [address] [place] [address] Assigned PCP 05/07/24 documented as of this encounter
--- OUTSIDE RECORDS SUMMARY | 2024-06-17 07:28 | XMS_ITS | Encounter Summary ---
Author Organization [facility] Address [address] [place] [address] Care Team Providers Care Campus Director Name Role Phone Jimenez Parks MD Primary Care Provider [phone] Jimenez Parks MD Unavailable [phone] Janis Gómez MD Unavailable [phone] Phil Patel MD Unavailable Lisha Patel RN Unavailable Unavailable Kuldip, Kemi Meza RN Unavailable Unavailable Moe Amezcua MD Unavailable Phil Patel MD Unavailable [phone] Dee Weiss MD Unavailable Rosa Moreau APRN RESIDENT CARE PROVIDER Primary Care Provider [phone] Trang Michele MD Unavailable Rosa Moreau APRN RESIDENT CARE PROVIDER Unavailable [phone] Reason for Visit * Reason Onset Date Comments MyChart Communication 03/24/2022 Encounter Details Date Type Department Care Team (Latest Contact Info) Description 03/24/2022 [facility] [id number] [place] [phone] [place] [id number] [place] [address] [employer] Communication Social History Tobacco Use Types Packs/Day Years [...] AM CDT Legal Sex Male 3:31 AM CLIENT SERVER PROGRAMMER Gender Identity Male 02/13/2021 11:50 AM CDT Sexual Orientation Bisexual 02/13/2021 11 :52 AM CDT COVID-19 Exposure Response Date Recorded In the last 10 days, have yo u been in contact with someone who was confirmed or suspected to have Coronavirus/COVID-19? Unable to assess 03/05/2022 10:11 AM CDT documented as of this encounter Miscellaneous Notes * Telephone Encounter - Leah Morgan RN - 03/25/2022 8:43 AM CDT Routed to , see [employer] Social response and advise f/u plan Leah Morgan RN, BSN [facility] documented in this encounter Plan of Treatment Upcoming Encounters Date Type Department Care Team (Late st Contact Info) Description 03/15/2025 11:30 AM CDT Office Visit [facility] [address] [address] Trang Michele MD [address] [place] [address] documented as of this encounter Visit Diagnoses Not on filedocumented in this encounter Additional Health Concerns Infection Onset Date Last Indicated Resolved Time Rule Out COVID-19 01/20/2024 01/20/2024 01/20/2024 2:43 AM CDT Rule Out C-difficile 01/20/2024 01/20/202407/2 024 4:32 PM CDT Assessment Noted Time PHQ-9 Depression Total Score: 0 01/02/20 18 7:00 AM CDT documented as of this encounter Care Teams Campus Director Relationship Specialty [place] [address] [place] [address] PCP - General Family Practice 10/03/14 12/01/23 Rosa Moreau APRN RESIDENT CARE PROVIDER [address] [place] [address] PCP - General Nurse Practitioner Primary Care 12/02/23 [place] [address] [place] [address] Assigned PCP 06/21/17 05/06/24 Janis Gó[place] [address] [place] [address] Assigned Nephrology Provider 02/24/21 04/05/24 Phil Patel MD [address] [facility] [place] [address] Assigned Surgical Provider 05/26/21 Lisha Patel RN Personal Advocate & Liaison (PAL) Family Medicine 01/29/22 04/21/22 Kemi Christiansen RN Personal Advocate & Liaison (PAL) 04/22/22 10/13/23 [place] [address] [address] [address] Assigned Musculoskeletal Provider 10/11/22 Phil Patel MD [address] [place] [address] Urology 03/04/23 Dee Weiss MD 500 [place] [address] Nephrology 10/30/23 Trang Michele MD 500 [place] [address] Assigned Nephrology Provider 04/06/24 Rosa Moreau APRN RESIDENT CARE PROVIDER [address] [place] [address] Assigned PCP 05/07/24 documented as of this encounter
--- OUTSIDE RECORDS SUMMARY | 2024-06-17 07:28 | XMS_ITS | Encounter Summary ---
Author Organization [facility] Address [address] [place] [address] Care Team Providers Care Sprayer Automatic Spray Machine Name Role Phone Jimenez Parks MD Primary Care Provider [phone] Jimenez Parks MD Unavailable [phone] Janis Gómez MD Unavailable Phil Patel MD Unavailable [phone] Diana Boss RN Unavailable Unavailable Lisha Patel RN Unavailable Unavailable Kuldip, Kemi Meza RN Unavailable Unavailable Moe Amezcua MD Unavailable Phil Patel MD Unavailable [phone] Dee Weiss MD Unavailable [phone] Rosa Moreau APRN TELEVISION MECHANIC Primary Care Provider + [phone] Trang Michele MD Unavailable Rosa Moreau APRN TELEVISION MECHANIC Unavailable [phone] Reason for Visit * Reason Onset Date Comments Appointment 11/20/2021 03/03/22 appt bonnie gonzales from video to telephone Encounter Details Date Type Department Care Team (Late st Contact Info) Description 11/20/2021 Telephone [facility] [address] [address] Janis Gómez MD 225 [facility] 300 [place] [address] Appointment (03/03/22 appt change from video to telephone) Social History Tobacco Use Types Packs/Day Years [...] AM CDT Legal Sex Male 3:31 AM SLIP COVER SEWER Gender Identity Male 02/13/2021 11:50 AM CDT Sexual Orientation Bisexual 02/13/2021 11 :52 AM CDT COVID-19 Exposure Response Date Recorded In the last 10 days, have yo u been in contact with someone who was confirmed or suspected to have Coronavirus/COVID-19? No / Unsure 11/14/2021 8:25 AM CDT documented as of this encounter Miscellaneous Notes * Telephone Encounter - Serene Berry - 11/20/2021 3:22 PM CDT [facility] Phone Message May a detailed message be left on voicemail: yes Reason for Call: Other: Pt called to schedule 3 month f/u appt as telephone visit. Heading Maker unable toschedule as telephone but scheduled 03/03/22 as video. Please change appt type to telephone. Thank you Action Taken: Message routed to: [facility] Neph Travel Screening: Not Applicable documented in this encounter Plan of Treatment Upcoming Encounters Date Type Department Care Team ([facility] st Contact Info) Description 03/15/2025 11:30 AM CDT Office Visit [facility] [address] [place] [phone] Trang Michele MD 500 [place], [place] [address] documented as of this encounter Visit Diagnoses Not on filedocumented in this encounter Additional Health Concerns Infection Onset Date Last Indicated Resolved Time Rule Out COVID-19 01/20/2024 01/20/2024 01/20/2024 2:43 AM CDT Rule Out C-difficile 01/20/2024 01/20/2024 024 4:32 PM CDT Assessment Noted Time PHQ-9 Depression Total Score: 0 01/02/20 18 7:00 AM CDT documented as of this encounter Care Teams Sprayer Automatic Spray Machine Relationship Specialty [place] [address] [place] [address] PCP - General Family Practice 10/03/14 12/01/23 Rosa Moreau APRN CNP [address] [place] [address] PCP - General Nurse Practitioner Primary Care 12/02/23 [place] [address] [place] [address] Assigned PCP 06/21/17 05/06/24 Janis Gó[place] [address] [place] [address] Assigned Nephrology Provider 02/24/21 04/05/24 Phil Patel MD [address] [facility] [place] [address] Assigned Surgical Provider 05/26/21 Diana Boss RN Personal Advocate & Liaison (PAL) Family Medicine 11/28/21 01/28/22 Lisha Patel RN Personal Advocate & Liaison (PAL) Family Medicine 01/29/22 04/21/22 Kemi Christiansen RN Personal Advocate & Liaison (PAL) 04/22/22 10/13/23 [place] [address] [place] [address] Assigned Musculoskeletal Provider 10/11/22 Phil Patel MD [address] [facility] [place] [address] Urology 03/04/23 Dee Weiss MD [address] [place] [address] Nephrology 10/30/23 Trang Michele MD [address] [place] [address] Assigned Nephrology Provider 04/06/24 Rosa Moreau APRN TELEVISION MECHANIC [address] [place] [address] Assigned PCP 05/07/24 documented as of this encounter
--- OUTSIDE RECORDS SUMMARY | 2024-06-17 07:28 | XMS_ITS | Encounter Summary ---
Author Organization [facility] Address [address] [place] [address]. [place] [address] Care Team Providers Care Composition Weatherboard Installer Name Role Phone Jimenez Parks MD Primary Care Provider [phone] Jimenez Parks MD Unavailable [phone] Janis Gómez MD Unavailable [phone] PatelPhil shin MD Unavailable [phone] Diana Boss RN Unavailable Unavailable Lisha Patel RN Unavailable Unavailable Kuldip, Kemi Meza RN Unavailable Unavailable Moe Amezcua MD Unavailable Phil Patel MD Unavailable [phone] Dee Weiss MD Unavailable Rosa Moreau APRN SENIOR RD ENGINEER Primary Care Provider + [phone] Trang Michele MD Unavailable Rosa Moreau APRN SENIOR RD ENGINEER Unavailable [phone] Reason for Visit * Reason Onset Date Comments Results 10/28/2021 Labs Encounter Details Date Type Department Care Team (Late st Contact Info) Description 10/28/2021 Telephone [facility] [place] [address] [place] [address] Janis Gómez MD [address] [facility] 300 [place] [address] Results (Labs) Social History Tobacco Use Types Packs/Day Years [...] AM CDT 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 No / Unsure 10/22/2021 11:03 AM CDT documented as of this encounter Miscellaneous Notes * Telephone Encounter - Lana Ingram CNA - 11/19/2021 9:14 AM CDT Pt is calling again requesting a call back to go over results and has additional questions as well.Please call chrissy GIBSON to discuss. Thanks * Telephone Encounter - Sophie Montalvo - 11/15/2021 1:03 PM CDT Pt is calling again about his lab results from 10/22, an encounter was sent on 10/28 and pt still hasn't heard back yet, please call Solis gibson as he has several follow up questions for the Dr, he did review his labs on mychart as well, please call chrissy gibson, he states he is available on 11/18/2021 in theafternoon, thank you * Telephone Encounter - Rosamaria Figueroa - 10/28/2021 3:41 PM CDT [facility] Call Center Phone Message May a detailed message be left on voicemail: yes Reason for Call: Requesting Results Name/type of test: Lab Date of test: 10/22/21 Was test done at a location other than [facility] (Please fill in the location if not [facility])?: No Patient is wanting to speak with care team about lab results and if there are any medication changes needed. Would like to discuss. Please reach out to patient thank you! Action Taken: Message routed to: [facility] Neph Travel Screening: Not Applicable documented in this encounter Plan of Treatment Upcoming Encounters Date Type Department Care Team (Late st Contact Info) Description 03/15/2025 11:30 AM CDT Office Visit [facility] [address] [phone] Trang Michele MD [address] [place] [address] documented as of this encounter Visit Diagnoses Not on filedocumented in this encounter Additional Health Concerns Infection Onset Date Last Indicated Resolved Time Rule Out COVID-19 01/20/2024 01/20/2024 01/20/2024 2:43 AM CDT Rule Out C-difficile 01/20/2024 01/20/2024 024 4:32 PM CDT Assessment Noted Time PHQ-9 Depression Total Score: 0 01/02/20 18 7:00 AM CDT documented as of this encounter Care Teams Composition Weatherboard Installer Relationship Specialty [place] [address] [place] [address] PCP - General Family Practice 10/03/14 12/01/23 Rosa Moreau APRN SENIOR RD ENGINEER [address] [place] [address] PCP - General Nurse Practitioner Primary Care 12/02/23 [place] [address] [place] [address] Assigned PCP 06/21/17 05/06/24 Janis Gó[place] [address] [place] [address] Assigned Nephrology Provider 02/24/21 04/05/24 Phil Patel MD [address] [address] Assigned Surgical Provider 05/26/21 Diana Boss RN Personal Advocate & Liaison (PAL) Family Medicine 11/28/21 01/28/22 Lisha Patel RN Personal Advocate & Liaison (PAL) Family Medicine 01/29/22 04/21/22 Kemi Christiansen, ROMAN Personal Advocate & Liaison (PAL) 04/22/22 10/13/23 [place] [address] [place] [address] Assigned Musculoskeletal Provider 10/11/22 Phil Patel MD [address] [address] Urology 03/04/23 Dee Weiss MD [address] [place], [place] [address] Nephrology 10/30/23 Trang Michele MD [address] [place], [place] 6[address] Assigned Nephrology Provider 04/06/24 Rosa Moreau APRN SENIOR [address] ENGINEER [address] [place] [address] Assigned PCP 05/07/24 documented as of this encounter
--- OUTSIDE RECORDS SUMMARY | 2024-06-17 07:28 | XMS_ITS | Encounter Summary ---
Author Organization [facility] Address [address] [place] [address] Care Team Providers Care Office Assistance Name Role Phone Jimenez Parks MD Primary Care Provider [phone] Jimenez Parks MD Unavailable [phone] Omar Stevenson MD Unavailable [phone] Janis Gómez MD Unavailable Phil Patel MD Unavailable Diaan Boss RN Unavailable Unavailable Lisha Patel RN Unavailable Unavailable Kemi Christiansen RN Unavailable Unavailable Moe Amezcua MD Unavailable Phil Patel MD Unavailable Dee eWiss MD Unavailable [phone] Rosa Moreau APRN MANAGER FINANCIAL SYSTEMS Primary Care Provider [phone] Trang Michele MD Unavailable Rosa Moreau APRN MANAGER FINANCIAL SYSTEMS Unavailable Encounter Details Date Type Department Care Team (Late st Contact Info) Description 05/02/2021 Documentation Only INTERFACED REPORT Unknown, Provider Social History Tobacco Use Types Packs/Day Years [...] AM CDT 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 No / Unsure 05/02/2021 12:57 PM COMMISSION BROKER documented as of this encounter Plan of Treatment Upcoming Encounters Date Type Department Care Team (Late st Contact Info) Description 03/15/2025 11:30 AM CDT Office Visit [facility] [address] [address] Trang Michele MD [address] [place] [address] documented as of this encounter Visit Diagnoses Not on filedocumented in this encounter Additional Health Concerns Infection Onset Date Last Indicated Resolved Time Rule Out COVID-19 01/20/2024 01/20/2024 01/20/2024 2:43 AM CDT Rule Out C-difficile 01/20/2024 01/20/2024 024 4:32 PM CDT Assessment Noted Time PHQ-9 Depression Total Score: 0 01/02/20 18 7:00 AM CDT documented as of this encounter Care Teams Office Assistance Relationship Specialty [place] [address] [place] [address] PCP - General Family Practice 10/03/14 12/01/23 Rosa Moreau APRN MANAGER FINANCIAL SYSTEMS [address] [place] [address] PCP - General Nurse Practitioner Primary Care 12/02/23 [place] [address] [facility] [place] [address] Assigned PCP 06/21/17 05/06/24 Omar Stevenson MD [address] [place] [phone] Assigned Surgical Provider 04/06/20 05/25/21 Janis Gómez MD [address] [place] [place] [phone] Assigned Nephrology Provider 02/24/21 04/05/24 Phil Patel MD [address] [place] [address] Assigned Surgical Provider 05/26/21 Diana Boss RN Personal Advocate & Liaison (PAL) Family Medicine 11/28/21 01/28/22 Lisha Patel RN Personal Advocate & Liaison (PAL) Family Medicine 01/29/22 04/21/22 Kemi Christiansen RN Personal Advocate & Liaison (PAL) 04/22/22 10/13/23 [place] [address] [place] [address] Assigned Musculoskeletal Provider 10/11/22 Phil Patel MD [address] [address] Urology 03/04/23 Dee Weiss MD [address] [place] [address] Nephrology 10/30/23 Trang Michele MD [address] [place] [address] Assigned Nephrology Provider 04/06/24 Rosa Moreau APRN MANAGER FINANCIAL SYSTEMS [address] [place] [address] Assigned PCP 05/07/24 documented as of this encounter
--- OUTSIDE RECORDS SUMMARY | 2024-06-17 07:29 | XMS_ITS | Encounter Summary ---
Author Organization [facility] Address [address] [place] [address] Care Team Providers Care Utility Manager Name Role Phone Andrea Clemente MD Primary Care Provider [phone] Jimenez Parks MD Primary Care Provider [phone] Jimenez Parks MD Unavailable [phone] Jimenez Parks MD Unavailable [phone] Omar Stevenson MD Unavailable [phone] Sarah Francisco RN Unavailable Unavailable Janis Gómez MD Unavailable PatelPhil shin MD Unavailable [phone] Diana Boss RN Unavailable Unavailable Lisha Patel RN Unavailable Unavailable Kemi Christiansen RN Unavailable Unavailable Moe Amezcua MD Unavailable Phil Patel MD Unavailable [phone] Dee Weiss MD Unavailable [phone] Rosa Moreau APRN ASSISTANT MEN'S SOCCER COACH Primary Care Provider + [phone] Trang Michele MD Unavailable Rosa Moreau APRN ASSISTANT MEN'S SOCCER COACH Unavailable [phone] Encounter Details Date Type Department Care Team (Late st Contact Info) Description 12/20/2005 [facility] [address] [place] [address] [place] [id number] [place] [address] [id number] ESOPHAGEAL REFLUX (Primary Dx) Social History Tobacco Use Types Packs/Day Years Used Date Smoking Tobacco: Former Cigarettes 0.5 14 0 [birth year]/13/1956 - 11/13/1970 Smokeless Tobacco: Never Comments:Quit 1970 Alcohol Use Standard Drinks/Week Comments Yes 0 (1 standard drink = 0.6 oz pur e alcohol) rare Sex and Gender Information Value Date Recorded Sex Assigned at Male 02/13/2021 11:50 AM CDT 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 The pain lasted through lunch and into his visit to theER. It wasn't until he received the morphine that his pain dimished to a level 3/10. He rates it as7/10 at its worst. He has had one other bout of this pain about 1-2 weeks ago. Past Medical History Diagnosis Date ??? HEMORRHOIDS NOS ??? 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 MALIG NEOPLASM SKIN EYELID 09-27-02 ??? ESOPHAGEAL STRICTURE ??? 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 Nonspecific procedure 08-27-02 ANAL FISTULA ??? Nonspecific procedure 09-27-02 BASAL CELL CA L FACE EXCISION ??? Surgical history of - s-2004 esophageal dilatation times 6 Medications: Current Outpatient Rx Name Route Sig Dispense Refill ??? PROTONIX 40 MG OR TBEC Oral 1 tab po bid 60 0 ??? ELOCON 0.1 % EX CREA Apply externally apply BID 30g 3 ??? MULTI-VITAMIN OR TABS cayenne, garlic, saw palmetto ??? OLIVE OIL OIL 1 tsp most days or in cooking Allergies: Allergies Allergen Reactions ??? Penicillins ??? Procaine Hcl Beestings Social history: History Substance Use Topics ??? Tobacco Use: Quit -- 0.5 packs/day for 14 years Quit date: 11/13/1970 ??? Alcohol Use: Yes 2 drinks monthly Family History Problem Relation ??? Adopted: Yes ??? Cancer Mother biological mother - sinus cancer ??? GI Mother gallstones ??? GI Sister gallstones ??? GI Brother gallstones Exam: Vitals: T - 96.1, BP - 113/70, P - 58,RR - 16, SATS - 94% on RA Neck: There is no lymphadenopathy or thyroid tenderness or enlargement Chest: Clear to auscultation bilaterally. No wheezes, rales or retractions. CV: Regular rate and rhythm without murmurs, rubs or gallops. ABDOMEN: Positive bowel sounds, soft, nondistended and mildly tender in the right upper quadrant. No masses are palpated and there is no organomegaly or inguinal lymphadenopathy. Extremities: There is no clubbing, cyanosis or edema. Peripheral pulses are present bilaterally in the radial and dorsalis pedis arteries. Skin: free of rash or abnormal looking lesion(s) - he has no jaundice LABS: HGB - 18.5 WBC - 8.9 with 84% neut BMP - wnl except glucose of 117 Total bili - 2.5, direct is 0.8 AST - 343 ALT - 207 Alk Phos - 116 Lipase - 84 UA - neg except 30mg/dl protein RUQ U/S - gallstones (prelim report) Assessment: 1. Cholelithiasis and possible CBD stone or maybe one passed 2. Slightly polycythemic - could be hypoxia but sats are good - could be within lab error 3. Slightly elevated glucose Plan: 1. Admit to hospital 2. Make NPO 3. Follow bili and liver enz and lipase and glucose as well as cbc 4. Consult GI regarding need for ERCP and acute management - will ultimately need surgery for gallbladder 5. Pain control and IV fluids Kaitlin Gordon MD [phone] documented in this encounter Plan of Treatment Upcoming Encounters Date Type Department Care Team (Late st Contact Info) Description 03/15/2025 11:30 AM CDT Office Visit [facility] [address] [place] [address] [address] [place] [phone] Trang Michele MD [address] [place], [place] [address] documented as of this encounter Visit Diagnoses Diagnosis Esophageal reflux- Primary documented in this encounter Additional Health Concerns Infection Onset Date Last Indicated Resolved Time Rule Out COVID-19 01/20/2024 01/20/2024 01/20/2024 2:43 AM CDT Rule Out C-difficile 01/20/2024 01/20/2024 024 4:32 PM CDT documented as of this encounter Care Teams Utility Manager Relationship Specialty Start Date End Date Andrea Clemente MD [address] [place] [address] PCP - General 09/12/03 10/02/14 [place] [address] [place] [address] PCP - General Family Practice 10/03/14 12/01/23 [place] [address] [place] [address] PCP - Assigned PCP 06/21/17 08/17/18 Rosa Moreau APRN ASSISTANT MEN'S SOCCER COACH [address] [place] [address] PCP - General Nurse Practitioner Primary Care 12/02/23 [place] [address] [facility] [place] [address] Assigned PCP 06/21/17 05/06/24 Omar Stevenson MD [address] [facility] [address] [place] [phone] Assigned Surgical Provider 04/06/20 05/25/21 Sarah Francisco RN Personal Advocate & Liaison (PAL) Family Medicine 07/20/20 11/08/20 Janis Gómez MD Assigned Nephrology Provider 02/24/21 04/05/24 Phil Patel MD [address] [address] Assigned Surgical Provider 05/26/21 Diana Boss RN Personal Advocate & Liaison (PAL) Family Medicine 11/28/21 01/28/22 Lisha Patel RN Personal Advocate & Liaison (PAL) Family Medicine 01/29/22 04/21/22 Kemi Christiansen RN Personal Advocate & Liaison (PAL) 04/22/22 10/13/23 [place] [address] [place] [address] Assigned Musculoskeletal Provider 10/11/22 Phil Patel MD [address] [address] Urology 03/04/23 Dee Weiss MD [address] [place] [address] Nephrology 10/30/23 Trang Michele MD [address] [place] [address] Assigned Nephrology Provider 04/06/24 Rosa Moreau APRN [facility] [address] [place] [address] Assigned PCP 05/07/24 documented as of this encounter
--- OUTSIDE RECORDS SUMMARY | 2024-06-17 07:29 | XMS_ITS | Encounter Summary ---
Author Organization [facility] Address [address] [place] [address] Care Team Providers Care Seat Pack Inspector Name Role Phone Jimenez Parks MD Primary Care Provider [phone] Jimenez Parks MD Unavailable [phone] Omar Stevenson MD Unavailable Janis Gómez MD Unavailable Phil Patel MD Unavailable Diana Boss RN Unavailable Unavailable Lisha Patel RN Unavailable Unavailable Kemi Christiansen RN Unavailable Unavailable Moe Amezcua MD Unavailable Phil Patel MD Unavailable [phone] Dee Weiss MD Unavailable Rosa Moreau APRN MARKETING ADMIN Primary Care Provider [phone] Trang Michele MD Unavailable Rosa Moreau APRN MARKETING ADMIN Unavailable Encounter Details Date Type Department Care Team (Late st Contact Info) Description 01/03/2021 Documentation Only INTERFACED REPORT Unknown, Provider Social [...] AM CDT 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 No / Unsure 01/03/2021 10:28 AM CDT documented as of this encounter Plan of Treatment Upcoming Encounters Date Type Department Care Team (Late st Contact Info) Description 03/15/2025 11:30 AM CDT Office Visit [facility] Specialty [address] [address] Trang Michele MD [address] [place] [address] documented as of this encounter Visit Diagnoses Not on filedocumented in this encounter Additional Health Concerns Infection Onset Date Last Indicated Resolved Time Rule Out COVID-19 01/20/2024 01/20/2024 01/20/2024 2:43 AM CDT Rule Out C-difficile 01/20/2024 01/20/2024 024 4:32 PM CDT Assessment Noted Time PHQ-9 Depression Total Score: 0 01/02/20 18 7:00 AM CDT documented as of this encounter Care Teams Seat Pack Inspector Relationship Specialty [place] [address] [place] [address] PCP - General Family Practice 10/03/14 12/01/23 Rosa Moreau APRN MARKETING ADMIN [address] [place] [address] PCP - General Nurse Practitioner Primary Care 12/02/23 [place] [address] [facility] [place] [address] Assigned PCP 06/21/17 05/06/24 Omar Stevenson MD [address] [place] [phone] Assigned Surgical Provider 04/06/20 05/25/21 Janis Gómez MD [address] [place] [phone] Assigned Nephrology Provider 02/24/21 04/05/24 Phil Patel MD [address] [place] [place] [address] Assigned Surgical Provider 05/26/21 Diana Boss, ROMAN Personal Advocate & Liaison (PAL) Family Medicine 11/28/21 01/28/22 Lisha Patel RN Personal Advocate & Liaison (PAL) Family Medicine 01/29/22 04/21/22 Kemi Christiansen RN Personal Advocate & Liaison (PAL) 04/22/22 10/13/23 [place] [address] [place] [address] Assigned Musculoskeletal Provider 10/11/22 Phil Patel MD [address] [place] [place] [address] Urology 03/04/23 Dee Weiss MD [address] [place] [address] Nephrology 10/30/23 Trang Michele MD [address] [place] [address] Assigned Nephrology Provider 04/06/24 Rosa Moreau APRN MARKETING ADMIN [address] [place] [address] Assigned PCP 05/07/24 documented as of this encounter
--- OUTSIDE RECORDS SUMMARY | 2024-06-17 07:29 | XMS_ITS | Encounter Summary ---
Author Organization [facility] Address [address] [place] [address] Care Team Providers Care Administrative Liaison Name Role Phone Jimenez Parks MD Primary Care Provider [phone] Jimenez Parks MD Unavailable [phone] Omar Stevenson MD Unavailable Sarah Francisco RN Unavailable Unavailable Janis Gómez MD Unavailable Phil Patel MD Unavailable Diana Boss RN Unavailable Unavailable Lisha Patel RN Unavailable Unavailable Kemi Christiansen RN Unavailable Unavailable Moe Amezcua MD Unavailable Phil Patel MD Unavailable [phone] Dee Weiss MD Unavailable [phone] Rosa Moreau APRN PROSPECTING DRILLER HELPER Primary Care Provider [phone] Trang Michele MD Unavailable Rosa Moreau APRN PROSPECTING DRILLER HELPER Unavailable Reason for Visit * Reason Onset Date Comments Call Back 07/11/2020 Pt requesting ca ll in regards to xray needing to be scheduled per Dr. Stevenson's request on 12/05/19 Encounter Details Date Type Department Care Team (Late st Contact Info) Description 07/11/[address] [facility] [place] [address] [facility] [address] [place] [address] Omar Stevenson MD [address] [facility] [address] [place] [address] Call Back (Pt requesting call in regards to xray needing to be scheduled per Dr. 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 Stevenson's request on 12/04/20 Action Taken: Message routed to: [facility] Urology Travel Screening: Not Applicable ANICAL ENGINEERING LECTURER documented in this encounter Plan of Treatment Upcoming Encounters Date Type Department Care Team ([facility] st Contact Info) Description 03/15/2025 11:30 AM CDT Office Visit [facility] [place] [address] [facility] [address] [place] [address] Trang Michele MD [address] [place] [address] documented as of this encounter Visit Diagnoses Not on filedocumented in this encounter Additional Health Concerns Infection Onset Date Last Indicated Resolved Time Rule Out COVID-19 01/20/2024 01/20/2024 01/20/2024 2:43 AM CDT Rule Out C-difficile 01/20/2024 01/20/2024 024 4:32 PM CDT Assessment Noted Time PHQ-9 Depression Total Score: 0 01/02/20 18 7:00 AM CDT documented as of this encounter Care Teams Administrative Liaison Relationship Specialty [place] [address] [place] [address] PCP - General Family Practice 10/03/14 12/01/23 Rosa Moreau APRN CNP [address] [place] [address] PCP - General Nurse Practitioner Primary Care 12/02/23 [place] [address] [place] [address] Assigned PCP 06/21/17 05/06/24 Omar Stevenson MD [address] [phone] Assigned Surgical Provider 04/06/20 05/25/21 Sarah Francisco, RN Personal Advocate & Liaison (PAL) Family Medicine 07/20/20 11/08/20 Janis Gómez MD Assigned Nephrology Provider 02/24/21 04/05/24 Phil Patel MD [address] [place] [address] Assigned Surgical Provider 05/26/21 Diana Boss, ROMAN Personal Advocate & Liaison (PAL) Family Medicine 11/28/21 01/28/22 Lisha Patel RN Personal Advocate & Liaison (PAL) Family Medicine 01/29/22 04/21/22 Kemi Christiansen RN Personal Advocate & Liaison (PAL) 04/22/22 10/13/23 [place] [address] [place] [address] Assigned Musculoskeletal Provider 10/11/22 Phil Patel MD [address] [place] [place] [address] Urology 03/04/23 Dee Weiss MD [address] [place] [address] Nephrology 10/30/23 Trang Michele MD [address] [place] [address] Assigned Nephrology Provider 04/06/24 Rosa Moreau APRN PROSPECTING DRILLER HELPER [address] [place] [address] Assigned PCP 05/07/24 documented as of this encounter
--- OUTSIDE RECORDS SUMMARY | 2024-06-17 07:29 | XMS_ITS | Encounter Summary ---
Author Organization [facility] Address [address] [place] [address] Care Team Providers Care Library Aide Name Role Phone Jimenez Parks MD Primary Care Provider [phone] Jimenez Parks MD Unavailable Omar Stevenson MD Unavailable [phone] Sarah Francisco RN Unavailable Unavailable Janis Gómez MD Unavailable [phone] Phil Patel MD Unavailable [phone] Diana Boss RN Unavailable Unavailable Lisha Patel RN Unavailable Unavailable Kemi Christiansen RN Unavailable Unavailable Moe Amezcua MD Unavailable Phil Patel MD Unavailable [phone] Dee Weiss MD Unavailable [phone] Rosa Moreau APRN PALLIATIVE NURSE Primary Care Provider + [phone] Trang Michele MD Unavailable Rosa Moreau APRN PALLIATIVE NURSE Unavailable [phone] Reason for Visit * Reason Comments Medication Refill Encounter Details Date Type Department Care Team (Late st Contact Info) Description 05/22/[address] [address] [place] [address] [place] [address] Medication Refill Social History Tobacco Use Types Packs/Day Years [...] AM CDT Legal Sex Male 3:31 AM CARBONATOR Gender Identity Male 02/13/2021 11:50 AM CDT Sexual Orientation Bisexual 02/13/2021 11 :52 AM CDT COVID-19 Exposure Response Date Recorded In the last month, have you been in contact with someone who was confirmed or suspected to have Coronavirus / COVID-19? No / Unsure 05/25/2020 9:24 AM CARBONATOR documented as of this encounter Miscellaneous Notes * Telephone Encounter - Meg Pleitez CMA - 05/22/2020 9:34 AM CST Medication Question or Refill Who is calling: Solis Cardoso What medication are you calling about (include dose and sig)?: Protonix 20 mg Controlled Substance Agreement on file: No Who prescribed the medication?: Dr. Parks Do you need a refill? Yes: When did you use the medication last? Today Patient offered an appointment? No Do you have any questions or concerns? No Requested Pharmacy: [facility] [place] Okay to leave a detailed message?: Yes at Cell number on file: Telephone Information: ONATOR documented in this encounter Plan of Treatment Upcoming Encounters Date Type Department Care Team ([facility] st Contact Info) Description 03/15/2025 11:30 AM CDT Office Visit [address] [address] Trang Michele MD [address] [place] [address] documented as of this encounter Visit Diagnoses Diagnosis History of Cornejo's esophagus documented in this encounter Additional Health Concerns Infection Onset Date Last Indicated Resolved Time Rule Out COVID-19 01/20/2024 01/20/2024 01/20/2024 2:43 AM CDT Rule Out C-difficile 01/20/2024 01/20/2024 024 4:32 PM CDT Assessment Noted Time PHQ-9 Depression Total Score: 0 01/02/20 7:00 AM CDT documented as of this encounter Care Teams Library Aide Relationship Specialty [place] [address] [place] [address] PCP - General Family Practice 10/03/14 12/01/23 Rosa Moreau APRN CNP [address] [place] [address] PCP - General Nurse Practitioner Primary Care 12/02/23 [place] [address] [place] [address] Assigned PCP 06/21/17 05/06/24 Omar Stevenson MD [address] [id number] Assigned Surgical Provider 04/06/20 05/25/21 Sarah Francisco, ROMAN Personal Advocate & Liaison (PAL) Family Medicine 07/20/20 11/08/20 Janis Gómez MD Assigned Nephrology Provider 02/24/21 04/05/24 Phil Patel MD [address] [place] [place] [address] Assigned Surgical Provider 05/26/21 Diana Boss, ROMAN Personal Advocate & Liaison (PAL) Family Medicine 11/28/21 01/28/22 Lisha Patel RN Personal Advocate & Liaison (PAL) Family Medicine 01/29/22 04/21/22 Kemi Christiansen RN Personal Advocate & Liaison (PAL) 04/22/22 10/13/23 [place] [address] [place] [address] Assigned Musculoskeletal Provider 10/11/22 Phil Patel MD [address] [address] Urology 03/04/23 Dee Weiss MD 500 [place] [address] Nephrology 10/30/23 Trang Michele MD [address] [place] [address] Assigned Nephrology Provider 04/06/24 Rosa Moreau APRN PALLIATIVE NURSE [address] [place] [address] Assigned PCP 05/07/24 documented as of this encounter
--- OUTSIDE RECORDS SUMMARY | 2024-06-17 07:29 | XMS_ITS | Encounter Summary ---
Author Organization [facility] Address [address] [place] [address] Care Team Providers Care Bridge Painter Name Role Phone Andrea Clemente MD Primary Care Provider [phone] Jimenez Parks MD Primary Care Provider [phone] Jimenez Parks MD Unavailable [phone] Jimenez Parks MD Unavailable [phone] Omar Stevenson MD Unavailable [phone] Sarah Francisco RN Unavailable Unavailable Janis óGmez MD Unavailable PatelPhil shin MD Unavailable [phone] Diana Boss RN Unavailable Unavailable Lisha Patel RN Unavailable Unavailable Kemi Christiansen RN Unavailable Unavailable Moe Amezcua MD Unavailable Phil Patel MD Unavailable [phone] Dee Weiss MD Unavailable [phone] Rosa Moreau APRN BALING MACHINE OPERATOR Primary Care Provider + [phone] Trang Michele MD Unavailable Rosa Moreau APRN BALING MACHINE OPERATOR Unavailable [phone] Encounter Details Date Type Department Care Team (Late st Contact Info) Description 02/23/2010 [facility] [address] [place] [phone] Andrea Clemente MD [address] [place] [address] 02-23-10 [facility]'s Social History Tobacco Use Types Packs/Day Years Used Date Smoking Tobacco: Former Cigarettes 0.5 14 0 11/13/1956 - 11/13/1970 Smokeless Tobacco: Never Comments:Quit 1970 Alcohol Use Standard Drinks/Week Comments Yes 0 (1 standard drink = 0.6 oz pur e alcohol) rare Sex and Gender Information Value Date Recorded Sex Assigned at Male 02/13/2021 11:50 AM CDT Legal Sex Male 3:31 AM MOLD BURNER Gender Identity Male 02/13/2021 11:50 AM CDT Sexual Orientation Bisexual 02/13/2021 11 :52 AM CDT documented as of this encounter Plan of Treatment Upcoming Encounters Date Type Department Care Team (Late st Contact Info) Description 03/15/2025 11:30 AM CDT Office Visit [facility] [address] [place] [address] [address] [place] [phone] Trang Michele MD [address] [place] [address] documented as of this encounter Procedures Procedure Name Priority Date/Time Associated Diagnosis Comments HC X-RAY ABDOMEN AP VIEW (KUB) Routine 03/01/2010 DIAGNOSIS NOT YET DEFINED HC US RETROPERITONEAL, COMPLETE Routine 02/28/[address] SCAN ABDOMEN/PELVIS Routine 02/23/2010 DIAGNOSIS NOT YET DEFINED ABSTRACT [facility] REPORT Routine 02/23/2010 DIAGNOSIS NOT YET DEFINED documented in this encounter Results * X-RAY ABDOMEN 1 VW (03/01/2010) Anatomical Region Laterality Modality Other us Andrea Clemente MD GENERAL IMAGING Final Result * SONO RETROPERITONEAL (02/28/2010) Anatomical Region Laterality Modality Other us Andrea Clemente MD SPECIAL IMAGING STUDIES Final Re sult * ABSTRACT [facility] REPORT (02/23/2010) Andrea Clemente MD LABORATORY Final Result MISYS * CT SCAN ABDOMEN/PELVIS (02/23/2010) Anatomical Region Laterality Modality Other Andrea Clemente MD SPECIAL IMAGING STUDIES Final Re sult documented in this encounter Visit Diagnoses Diagnosis ER REPORT documented in this encounter Additional Health Concerns Infection Onset Date Last Indicated Resolved Time Rule Out COVID-19 01/20/2024 01/20/2024 01/20/2024 2:43 AM CDT Rule Out C-difficile 01/20/2024 01/20/2024 024 4:32 PM CDT documented as of this encounter Care Teams Bridge Painter Relationship Specialty Start Date End Date Andrea Clemente MD [address] [place] [address] PCP - General 09/12/03 10/02/14 [place] [address] [place] [address] PCP - General Family Practice 10/03/14 12/01/23 [place] [address] [place] [address] PCP - Assigned PCP 06/21/17 08/17/18 Rosa Moreau APRN BALING MACHINE OPERATOR [address] [place], [place] [address] PCP - General Nurse Practitioner Primary Care 12/02/23 [place] [address] [place] [address] Assigned PCP 06/21/17 05/06/24 Omar Stevenson MD [address] [phone] Assigned Surgical Provider 04/06/20 05/25/21 Sarah Francisco RN Personal Advocate & Liaison (PAL) Family Medicine 07/20/20 11/08/20 Janis Gómez MD Assigned Nephrology Provider 02/24/21 04/05/24 Phil Patel MD [address] [address] Assigned Surgical Provider 05/26/21 Diana Boss, ROMAN Personal Advocate & Liaison (PAL) Family Medicine 11/28/21 01/28/22 Lisha Patel RN Personal Advocate & Liaison (PAL) Family Medicine 01/29/22 04/21/22 Kemi Christiansen RN Personal Advocate & Liaison (PAL) 04/22/22 10/13/23 [place] [address] [place] [address] Assigned Musculoskeletal Provider 10/11/22 Phil Patel MD [address] [address] Urology 03/04/23 Dee Weiss MD 500 [place] [address] Nephrology 10/30/23 Trang Michele MD 500 [place] [address] Assigned Nephrology Provider 04/06/24 Rosa Moreau APRN [facility] [address] [place] [address] Assigned PCP 05/07/24 documented as of this encounter
--- OUTSIDE RECORDS SUMMARY | 2024-06-17 07:29 | XMS_ITS | Encounter Summary ---
Author Organization [facility] Address [address] [place] [address] Care Team Providers Care Tonger Name Role Phone Jimenez Parks MD Primary Care Provider [phone] Jimenez Parks MD Unavailable [phone] Omar Stevenson MD Unavailable [phone] Sarah Francisco RN Unavailable Unavailable Janis Gómez MD Unavailable [phone] Phil Patel MD Unavailable [phone] Diana Boss RN Unavailable Unavailable Lisha Patel RN Unavailable Unavailable Kemi Christiansen RN Unavailable Unavailable Moe Amezcua MD Unavailable Phil Patel MD Unavailable [phone] Dee Weiss MD Unavailable [phone] Rosa Moreau APRN FINANCIAL SERVICES PROFESSIONAL Primary Care Provider + [phone] Trang Michele MD Unavailable Rosa Moreau APRN FINANCIAL SERVICES PROFESSIONAL Unavailable [phone] Reason for Visit * Reason Comments Medication Refill Encounter Details Date Type Department Care Team (Late st Contact Info) Description 07/19/[address] [address] [place] [address] [place] [address] Medication Refill Social History Tobacco Use Types [...] AM CDT Legal Sex Male 3:31 AM CONSULTANT INTERNSHIP Gender Identity Male 02/13/2021 11:50 AM CDT Sexual Orientation Bisexual 02/13/2021 11 :52 AM CDT documented as of this encounter Miscellaneous Notes * Telephone Encounter - Meg Pleitez CMA - 07/20/2020 11:34 AM CST Appt schedule 07/23/20. Meg Pleitez CMA [employer] INTERNSHIP * Telephone Encounter - Jimenez Parks MD - 07/19/2020 3:01 PM CST Sent Needs virtual wellness Jimenez Parks MD [employer] * Telephone Encounter - Jabier Morales RN - 07/19/2020 2:43 PM CST Routing refill request to provider for review/approval because: Labs out of range: creatinine BP not current Creatinine Date Value Ref Range Status 05/25/2020 1.36 (H) 0.66 - 1.25 mg/dL Final Jabier Cadet RN, BSN [employer] documented in this encounter Plan of Treatment Upcoming Encounters Date Type Department Care Team (Late st Contact Info) Description 03/15/2025 11:30 AM CDT Office Visit [facility] [place] [address] [facility] [address] [place] [phone] Trang Michele MD [address] [place] [address] documented as of this encounter Visit Diagnoses Diagnosis Stage 3a chronic kidney disease (H) Essential hypertension Unspecified essential hypertension documented in this encounter Additional Health Concerns Infection Onset Date Last Indicated Resolved Time Rule Out COVID-19 01/20/2024 01/20/2024 01/20/2024 2:43 AM CDT Rule Out C-difficile 01/20/2024 01/20/2024 024 4:32 PM CDT Assessment Noted Time PHQ-9 Depression Total Score: 0 01/02/20 18 7:00 AM CDT documented as of this encounter Care Teams Tonger Relationship Specialty [place] [address] [place] [address] PCP - General Family Practice 10/03/14 12/01/23 Rosa Moreau APRN FINANCIAL SERVICES PROFESSIONAL [address] [place] [address] PCP - General Nurse Practitioner Primary Care 12/02/23 [place] [address] [place] [address] Assigned PCP 06/21/17 05/06/24 Omar Stevenson MD [address] [facility] [address] [place] [phone] Assigned Surgical Provider 04/06/20 05/25/21 Sarah Francisco, RN Personal Advocate & Liaison (PAL) Family Medicine 07/20/20 11/08/20 Janis Gómez MD Assigned Nephrology Provider 02/24/21 04/05/24 Phil Patel MD [address] [place] [place] [address] Assigned Surgical Provider 05/26/21 Diana Boss, ROMAN Personal Advocate & Liaison (PAL) Family Medicine 11/28/21 01/28/22 Lisha Patel RN Personal Advocate & Liaison (PAL) Family Medicine 01/29/22 04/21/22 Kemi Christiansen RN Personal Advocate & Liaison (PAL) 04/22/22 10/13/23 [place] [address] [place] [address] Assigned Musculoskeletal Provider 10/11/22 Phil Patel MD [address] [place] [address] Urology 03/04/23 Dee Weiss MD [address] [place] [address] Nephrology 10/30/23 Trang Michele MD 500 [place] [address] Assigned Nephrology Provider 04/06/24 Rosa Moreau APRN FINANCIAL SERVICES PROFESSIONAL [address] [place] [address] Assigned PCP 05/07/24 documented as of this encounter
--- OUTSIDE RECORDS SUMMARY | 2024-06-17 07:29 | XMS_ITS | Encounter Summary ---
Author Organization [facility] Address [address] [place] [address] Care Team Providers Care Log Chipper Name Role Phone Jimenez Parks MD Primary Care Provider [phone] Jimenez Parks MD Unavailable [phone] Omar Stevenson MD Unavailable [phone] Sarah Francisco RN Unavailable Unavailable Janis Gómez MD Unavailable Phil Patel MD Unavailable [phone] Diana Boss RN Unavailable Unavailable Lisha Patel RN Unavailable Unavailable Kemi Christiansen RN Unavailable Unavailable Moe Amezcua MD Unavailable Phil Patel MD Unavailable [phone] Dee Weiss MD Unavailable [phone] Rosa Moreau APRN REMOTE SENSING TECHNOLOGIST Primary Care Provider + [phone] Trang Michele MD Unavailable Rosa Moreau APRN REMOTE SENSING TECHNOLOGIST Unavailable [phone] Reason for Visit * Reason Onset Date Comments [facility] Email Spam FYI 08/05/2020 [facility] Email Spa Encounter Details Date Type Department Care Team (Late st Contact Info) Description 08/05/2020 Telephone [facility] [address] [place] [phone] [place] [address] [place], [place] [phone] [facility] Email Spam FYI ([facility] Email Spam FYI) Social History Tobacco Use Types Packs/Day Years [...] AM CDT Legal Sex Male 3:31 AM LUMP MAKER Gender Identity Male 02/13/2021 11:50 AM CDT Sexual Orientation Bisexual 02/13/2021 11 :52 AM CDT COVID-19 Exposure Response Date Recorded In the last month, have you been in contact with someone who was confirmed or suspected to have Coronavirus / COVID-19? No / Unsure 07/23/2020 11:08 AM LUMP MAKER documented as of this encounter Miscellaneous Notes * Telephone Encounter - Roro Pérez - 08/05/2020 10:15 AM CST Reason for call: Other Patient called regarding (reason for call): [facility] Email Spam FYI Additional comments: Patient and his spouse wanted the clinic to be aware of the multiple daily emails that they've continued to receive from the [facility]. This is just an FYI. They will disregard these emails but would prefer them to stop. Phone number to reach patient: Home number on file [phone] (home) Best Time: any Can we leave a detailed message on this number? YES Travel screening: Not Applicable MAKER documented in this encounter Plan of Treatment Upcoming Encounters Date Type Department Care Team (Late st Contact Info) Description 03/15/2025 11:30 AM CDT Office Visit [address] [phone] Trang Michele MD [address] [place] [address] documented as of this encounter Visit Diagnoses Not on filedocumented in this encounter Additional Health Concerns Infection Onset Date Last Indicated Resolved Time Rule Out COVID-19 01/20/2024 01/20/2024 01/20/2024 2:43 AM CDT Rule Out C-difficile 01/20/2024 01/20/2024 024 4:32 PM CDT Assessment Noted Time PHQ-9 Depression Total Score: 0 01/02/20 18 7:00 AM CDT documented as of this encounter Care Teams Log Chipper Relationship Specialty [place] [address] [place] [address] PCP - General Family Practice 10/03/14 12/01/23 Rosa Moreau APRN REMOTE SENSING TECHNOLOGIST [address] [place] [address] PCP - General Nurse Practitioner Primary Care 12/02/23 [place] [address] [place] [address] Assigned PCP 06/21/17 05/06/24 Omar Stevenson MD [address] [facility] [address] [phone] Assigned Surgical Provider 04/06/20 05/25/21 Sarah Francisco, RN Personal Advocate & Liaison (PAL) Family Medicine 07/20/20 11/08/20 Janis Gómez MD Assigned Nephrology Provider 02/24/21 04/05/24 Phil Patel MD [address] [address] Assigned Surgical Provider 05/26/21 Diana Boss RN Personal Advocate & Liaison (PAL) Family Medicine 11/28/21 01/28/22 Lisha Patel RN Personal Advocate & Liaison (PAL) Family Medicine 01/29/22 04/21/22 Kemi Christiansen RN Personal Advocate & Liaison (PAL) 04/22/22 10/13/23 [place] [address] [place] [address] Assigned Musculoskeletal Provider 10/11/22 Phil Patel MD [address] [address] Urology 03/04/23 Dee Weiss MD [address] [place] [address] Nephrology 10/30/23 Trang Michele MD [address] [place] [address] Assigned Nephrology Provider 04/06/24 Rosa Moreau APRN REMOTE SENSING TECHNOLOGIST [address] [place] [address] Assigned PCP 05/07/24 documented as of this encounter
--- OUTSIDE RECORDS SUMMARY | 2024-06-17 07:29 | XMS_ITS ---
Author Organization [facility] Address [address] [place] [address] Care Team Providers Care Furnace Repair Mechanic Name Role Phone Phil Patel MD Unavailable [phone] Moe Amezcua MD Unavailable Phil Patel MD Unavailable [phone] Dee Weiss MD Unavailable Rosa Moreau APRN LINE THERAPIST Primary Care Provider [phone] Trang Michele MD Unavailable Rosa Moreau APRN LINE THERAPIST Unavailable [phone] Primary Care Care Coordination Status:Declined (Declined) Start date:05/03/2024 End date:05/03/2024 Decline reason:Not interested Continued Care and Services Coordination
--- OUTSIDE RECORDS SUMMARY | 2024-06-17 07:29 | XMS_ITS | Encounter Summary ---
Author Organization [facility] Address [address] [place] [address] Care Team Providers Care Inspector [employer]ed [employer] Boards Name Role Phone Jimenez Parks MD Primary Care Provider [phone] Jimenez Parks MD Unavailable Omar Stevenson MD Unavailable [phone] Sarah Francisco RN Unavailable Unavailable Janis Gómez MD Unavailable [phone] Phil Patel MD Unavailable [phone] Diana Boss RN Unavailable Unavailable Lisha Patel RN Unavailable Unavailable Kemi Christiansen RN Unavailable Unavailable Moe Amezcua MD Unavailable Phil Patel MD Unavailable [phone] Dee Weiss MD Unavailable [phone] Rosa Moreau APRN WATER PUMP SERVICER Primary Care Provider [phone] Trang Michele MD Unavailable Rosa Moreau APRN WATER PUMP SERVICER Unavailable [phone] Encounter Details Date Type Department Care Team (Late st Contact Info) Description 08/28/2020 Documentation Only INTERFACED REPORT Unknown, Provider Social [...] CDT Legal Sex Male 3:31 AM MOLD CARPENTER Gender Identity Male 02/13/2021 11:50 AM CDT Sexual Orientation Bisexual 02/13/2021 11 :52 AM CDT COVID-19 Exposure Response Date Recorded In the last month, have you been in contact with someone who was confirmed or suspected to have Coronavirus / COVID-19? No / Unsure 08/17/2020 12:25 PM MOLD CARPENTER documented as of this encounter Plan of Treatment Upcoming Encounters Date Type Department Care Team (Late st Contact Info) Description 03/15/2025 11:30 AM CDT Office Visit [facility] Specialty [address] [phone] Trang Michele MD [address] [place] [address] documented as of this encounter Visit Diagnoses Not on filedocumented in this encounter Additional Health Concerns Infection Onset Date Last Indicated Resolved Time Rule Out COVID-19 01/20/2024 01/20/2024 01/20/2024 2:43 AM CDT Rule Out C-difficile 01/20/2024 01/20/2024 024 4:32 PM CDT Assessment Noted Time PHQ-9 Depression Total Score: 0 01/02/20 18 7:00 AM CDT documented as of this encounter Care Teams Inspector Printed Circuit Boards Relationship Specialty [place] [address] [place] [address] PCP - General Family Practice 10/03/14 12/01/23 Rosa Moreau APRN WATER PUMP SERVICER [address] [place] [address] PCP - General Nurse Practitioner Primary Care 12/02/23 [place] [address] [facility] [place] [address] Assigned PCP 06/21/17 05/06/24 Omar Stevenson MD [address] [phone] Assigned Surgical Provider 04/06/20 05/25/21 Sarah Francisco RN Personal Advocate & Liaison (PAL) Family Medicine 07/20/20 11/08/20 Janis Gómez MD Assigned Nephrology Provider 02/24/21 04/05/24 Phil Patel MD [address] [address] Assigned Surgical Provider 05/26/21 Diana Boss RN Personal Advocate & Liaison (PAL) Family Medicine 11/28/21 01/28/22 Lisha Patel RN Personal Advocate & Liaison (PAL) Family Medicine 01/29/22 04/21/22 Kemi Christiansen RN Personal Advocate & Liaison (PAL) 04/22/22 10/13/23 [place] [address] [address] [address] Assigned Musculoskeletal Provider 10/11/22 Phil Patel MD [address] [address] Urology 03/04/23 Dee Weiss MD [address] [place] [address] Nephrology 10/30/23 Trang Michele MD [address] [place], [place] [address] Assigned Nephrology Provider 04/06/24 Rosa Moreau APRN WATER PUMP SERVICER [address] [place] [address] Assigned PCP 05/07/24 documented as of this encounter
--- OUTSIDE RECORDS SUMMARY | 2024-06-17 07:29 | XMS_ITS | Encounter Summary ---
Author Organization [facility] Address [address] [place] [address] Care Team Providers Care Jackerman Name Role Phone Jimenez Parks MD Primary Care Provider [phone] Jimenez Parks MD Unavailable [phone] Omar Stevenson MD Unavailable [phone] Janis Gómez MD Unavailable PatelPhil shin MD Unavailable Diana Boss RN Unavailable Unavailable Lisha Patel RN Unavailable Unavailable Kemi Christiansen RN Unavailable Unavailable Moe Amezcua MD Unavailable Phil Patel MD Unavailable Dee Weiss MD Unavailable Rosa Moreau APRN WORKING SUPERVISOR Primary Care Provider [phone] Trang Michele MD Unavailable Rosa Moreau APRN WORKING SUPERVISOR Unavailable Reason for Visit * Reason Onset Date Comments Medication Request 04/08/2021 famotidine (P EPCID) 20 MG tablet Call Back 04/08/2021 Results of the Garrison hubbard Test - Call [facility] at: [phone] or [phone] Encounter Details Date Type Department Care Team (Late st Contact Info) Description 04/08/2021 Telephone [facility] - Medical Specialties Service Line [facility] [place] [address] Janis Gómez MD [address] [facility] [address] [place] [address] Medication Request (famotidine (PEPCID) 20 MG tablet ); Call Back (Results of the Kidney Test - Call [facility] at: [phone] or [phone]) Social History Tobacco Use Types Packs/Day Years [...] AM CDT Legal 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 Gómez Pharmacy: [id number] [address] What on the order needs clarification? Refill - 90 days supply. Working great. Call Pt [facility] about his kidney test. Call [phone] or [phone] Action Taken: Message routed to: [facility] Nephrology Travel Screening: Not Applicable documented in this encounter Plan of Treatment Upcoming Encounters Date Type Department Care Team (Late st Contact Info) Description 03/15/2025 11:30 AM CDT Office Visit [facility] Specialty [facility] [address] [facility] [address] [place] [phone] Trang Michele MD [address] [place] [address] documented as of this encounter Visit Diagnoses Not on filedocumented in this encounter Additional Health Concerns Infection Onset Date Last Indicated Resolved Time Rule Out COVID-19 01/20/2024 01/20/2024 01/20/2024 2:43 AM CDT Rule Out C-difficile 01/20/2024 01/20/2024 024 4:32 PM CDT Assessment Noted Time PHQ-9 Depression Total Score: 0 01/02/20 18 7:00 AM CDT documented as of this encounter Care Teams Jackerman Relationship Specialty [place] [address] [place] [address] PCP - General Family Practice 10/03/14 12/01/23 Rosa Moreau APRN WORKING SUPERVISOR [address] [place] [address] PCP - General Nurse Practitioner Primary Care 12/02/23 [place] [address] [place] [address] Assigned PCP 06/21/17 05/06/24 Omar Stevenson MD [address] [facility] [address] [phone] Assigned Surgical Provider 04/06/20 05/25/21 Janis Gómez MD [address] [place] [address] Assigned Nephrology Provider 02/24/21 04/05/24 Phil Patel MD [address] [place] [address] Assigned Surgical Provider 05/26/21 Diana Boss, ROMAN Personal Advocate & Liaison (PAL) Family Medicine 11/28/21 01/28/22 Lisha Patel RN Personal Advocate & Liaison (PAL) Family Medicine 01/29/22 04/21/22 Kemi Christiansen RN Personal Advocate & Liaison (PAL) 04/22/22 10/13/23 [place] [address] [place] [address] Assigned Musculoskeletal Provider 10/11/22 Phil Patel MD [address] [address] Urology 03/04/23 Dee Weiss MD [address] [place] [address] Nephrology 10/30/23 Trang Michele MD [address] [place] [address] Assigned Nephrology Provider 04/06/24 Rosa Moreau APRN WORKING SUPERVISOR [address] [place] [address] Assigned PCP 05/07/24 documented as of this encounter
[2024-06-17] MEDS: FUROSEMIDE 10 MG/ML inj 20 MG IVP (12:52)
[2024-06-24 10:07] VITALS: BP 117/67; PULSE 84; RESP 17; TEMP 36.7; O2SAT 98
[2024-06-24 12:39] VITALS: BP 104/65; PULSE 74; RESP 16; TEMP 36.4; O2SAT 97
[2024-06-24 12:59] VITALS: BP 107/69; PULSE 83; RESP 18; TEMP 36.8; O2SAT 98
[2024-06-24 13:35] VITALS: BP 120/72; PULSE 81; RESP 16; TEMP 36.7; O2SAT 98
[2024-06-24 13:56] VITALS: BP 106/65; PULSE 78; RESP 16; TEMP 37.2; O2SAT 99
[2024-06-24 14:39] VITALS: BP 126/69; PULSE 79; RESP 16; TEMP 37.1; O2SAT 98
[2024-06-29 13:29] VITALS: BP 106/62; PULSE 76; RESP 16; TEMP 36.7; O2SAT 95
[2024-06-29 13:32] VITALS: BP 106/62; PULSE 76; RESP 6; TEMP 36.7; O2SAT 95
[2024-06-29 13:48] VITALS: BP 109/67; PULSE 78; RESP 16; TEMP 36.4; O2SAT 97
[2024-06-29 14:20] VITALS: BP 108/65; BP 111/63; PULSE 75; PULSE 77; RESP 16; TEMP 36.2; TEMP 36.8; O2SAT 100; O2SAT 98
--- NOTE | 2024-06-29 15:15 | ONC.NURNOTE ---
Patient complained of mouth pain. Stated his doctor told him it was likely from having low platelets and bleeding gums and not able to brush thoroughly. Kitchen Steward looked in patients mouth and saw caked white cracked tongue and white matter around gum line. Called [facility] and spoke with ROMAN Rose. She is going to look into prescribing a magic mouth wash with nystatin. She will reach out to the patient once she gets this order.
[2024-06-29 15:30] VITALS: BP 125/62; PULSE 74; RESP 16; TEMP 36.8; O2SAT 100
[2024-07-01] VITALS (7 sets, daily range): BP systolic 98–126; BP diastolic 59–80; PULSE 77–84; RESP 16–20; TEMP 36–36.6; O2SAT 95–99
== END 2024-11-13 23:59 | disposition home or self-care (01) ==
LOC: CCIC 09:30
PROVIDERS: Visit Provider Clinical Nurse Specialist
DX: C92.00 Acute myeloblastic leukemia, not having achieved remission (principal)
CPT/HCPCS: 36415; 36430; 86850; 86900; 86901; 86922; 96374; J1940; J7030; P9016; P9019; P9073